=== PATIENT | male | born 1940 | race Caucasian/White ===

== ENCOUNTER 2020-06-15 08:30 | Outpatient (REF) | payer MEDICARE, SELFPAY ==
[2020-06-15 09:19] LABS: MANUAL DIFF FLAG NO
[2020-06-15 09:42] LABS: Basophils Absolute Auto 0.1 X10*3/uL (0.0-0.2); Basophils Percent Auto 0.8 % (0-2); Eosinophils Absolute Auto 0.1 X10*3/uL (0.0-0.4); Eosinophils Percent Auto 2.1 % (0-4); Hematocrit 42.8 % (42-52); Hemoglobin 13.3 g/dl (14.0-18.0); Imm Gran Abs Auto 0.01 X10*3/uL (0.00-0.03); Imm Gran Pct Auto 0.2 % (0.0-0.4); Lymphocytes Percent Auto 32.4 % (20-40); Mean Corpuscular HGB Conc 31.1 g/dl (31.0-36.0); Mean Corpuscular Hemoglobin 26.7 pg (27.0-33.0); Mean Corpuscular Volume 85.9 fL (80-98); Mean Platelet Volume 10.9 fL (9.4-12.4); Monocytes Absolute Auto 0.8 X10*3/uL (0.1-1.2); Monocytes Percent Auto 12.3 % (2-11); Neutrophils Absolute Auto 3.2 X10*3/uL (2.0-8.3); Neutrophils Percent Auto 52.2 % (45-73); Platelet Count 233 X10*3/uL (160-400); Red Blood Count 4.98 X10*6/uL (4.60-5.80); Red Cell Distribution Width 14.8 % (11.0-16.0); White Blood Count 6.2 X10*3/uL (4.8-10.8)
[2020-06-15 10:10] LABS: Alanine Aminotransferase 22 U/L (0-40); Albumin Level 4.3 g/dL (3.5-5.0); Alkaline Phosphatase 70 U/L (39-117); Anion Gap 12 (12-20); Aspartate Amino Transferase 28 U/L (5-37); Bilirubin Total 0.5 mg/dL (0.0-1.0); Blood Urea Nitrogen 21 mg/dL (9-16); Carbon Dioxide 34 mmol/L (22-29); Chloride 99 mmol/L (96-108); Cholesterol 172 mg/dL; Estimated Glomerular Filt Rate > 60; Glucose Random 94 mg/dL (60-115); HDL Cholesterol 44 mg/dL; LDL Cholesterol Calculated 108 mg/dl; Potassium 4.3 mmol/L (3.3-5.1); Sodium 141 mmol/L (135-145); Total Protein 6.9 g/dL (6.5-8.0); Triglycerides 100 mg/dL
[2020-06-15 10:18] LABS: Estimated Average Glucose 134 mg/dL; Hemoglobin A1c % 6.3 %
[2020-06-15 10:32] LABS: Free T4 (Free Thyroxine) 0.92 ng/dL (0.71-1.85); Thyroid Stimulating Hormone 2.67 uIU/mL (0.32-4.0)
[2020-06-15 10:52] LABS: Folate 14.3 ng/mL (> or = 4.0); Vitamin B12 546 pg/mL (200-900)
== END 2020-06-15 08:31 | disposition home or self-care (01) ==
LOC: HO.LAB 08:30
PROVIDERS: PCP Internal Medicine; Visit Provider Internal Medicine
DX: R73.02 Impaired glucose tolerance (oral) (principal); E78.00 Pure hypercholesterolemia, unspecified; E78.5 Hyperlipidemia, unspecified; I10 Essential (primary) hypertension
CPT/HCPCS: 36415; 80053; 80061; 82607; 82746; 83036; 84439; 84443; 85025

== ENCOUNTER 2021-02-07 13:21 | Outpatient (REF) | payer MEDICARE, SELFPAY ==
[2021-02-07 13:46] LABS: MANUAL DIFF FLAG NO
[2021-02-07 14:20] LABS: Basophils Absolute Auto 0.1 X10*3/uL (0.0-0.2); Eosinophils Absolute Auto 0.1 X10*3/uL (0.0-0.4); Eosinophils Percent Auto 2.3 % (0-4); Hematocrit 40.5 % (42-52); Hemoglobin 12.2 g/dl (14.0-18.0); Imm Gran Abs Auto 0.02 X10*3/uL (0.00-0.03); Imm Gran Pct Auto 0.3 % (0.0-0.4); Lymphocytes Absolute Auto 1.4 X10*3/uL (1.2-4.9); Lymphocytes Percent Auto 24.7 % (20-40); Mean Corpuscular HGB Conc 30.1 g/dl (31.0-36.0); Mean Corpuscular Hemoglobin 23.6 pg (27.0-33.0); Mean Corpuscular Volume 78.3 fL (80-98); Mean Platelet Volume 10.5 fL (9.4-12.4); Monocytes Absolute Auto 0.7 X10*3/uL (0.1-1.2); Monocytes Percent Auto 12.9 % (2-11); Neutrophils Absolute Auto 3.4 X10*3/uL (2.0-8.3); Neutrophils Percent Auto 58.8 % (45-73); Platelet Count 267 X10*3/uL (160-400); Red Blood Count 5.17 X10*6/uL (4.60-5.80); Red Cell Distribution Width 16.8 % (11.0-16.0); White Blood Count 5.8 X10*3/uL (4.8-10.8)
[2021-02-07 14:42] LABS: Estimated Average Glucose 131 mg/dL; Hemoglobin A1C 133.3661 umol/L; Hemoglobin A1c % 6.2 %
[2021-02-07 15:00] LABS: Alanine Aminotransferase 21 U/L (0-40); Albumin Level 4.5 g/dL (3.5-5.0); Alkaline Phosphatase 72 U/L (39-117); Anion Gap 13 (12-20); Aspartate Amino Transferase 22 U/L (5-37); Bilirubin Total 0.3 mg/dL (0.0-1.0); Blood Urea Nitrogen 22 mg/dL (9-16); Carbon Dioxide 33 mmol/L (22-29); Chloride 98 mmol/L (96-108); Cholesterol 275 mg/dL; Estimated Glomerular Filt Rate 54; Glucose Random 110 mg/dL (60-115); HDL Cholesterol 37 mg/dL; LDL Cholesterol Calculated 186 mg/dl; Potassium 4.1 mmol/L (3.3-5.1); Sodium 140 mmol/L (135-145); Total Protein 7.3 g/dL (6.5-8.0); Triglycerides 263 mg/dL
[2021-02-07 15:01] LABS: Free T4 (Free Thyroxine) 0.89 ng/dL (0.71-1.85)
== END 2021-02-07 13:22 | disposition home or self-care (01) ==
LOC: HO.LAB 13:21
PROVIDERS: PCP Internal Medicine; Visit Provider Internal Medicine
DX: E78.00 Pure hypercholesterolemia, unspecified (principal); R73.02 Impaired glucose tolerance (oral); E78.2 Mixed hyperlipidemia
CPT/HCPCS: 36415; 80053; 80061; 83036; 84439; 85025

== ENCOUNTER 2021-08-08 13:03 | Outpatient (REF) | payer MEDICARE, SELFPAY ==
--- NOTE | ~2021-08-08 | XR_ITS ---
EXAMINATION: XR CHEST CLINICAL INFORMATION: Shortness of breath COMPARISON: None TECHNIQUE: 2 views of the chest were obtained. FINDINGS: There is a large air-fluid level projecting over the heart suggestive of an esophageal hernia. The heart does not appear enlarged. Hilar and mediastinal contours are otherwise unremarkable. The lungs are clear. There is no pleural effusion or pneumothorax. There is a severe thoracolumbar scoliosis. XR/XR chest 2V IMPRESSION: Severe thoracolumbar scoliosis. Large esophageal hernia.
--- NOTE | 2021-08-08 13:09 | ECG_ITS ---
Test Reason : SOB R06.02 Blood Pressure : / mmHG Vent. Rate : 082 BPM Atrial Rate : 082 BPM P-R Int : 170 ms QRS Dur : 080 ms QT Int : 386 ms P-R-T Axes : 041 070 040 degrees QTc Int : 450 ms Normal sinus rhythm Nonspecific ST abnormality Abnormal ECG No previous ECGs available Referred By: Estella Gross Electronically Signed By:TANESHA MCDONALD MD
[2021-08-08 13:15] LABS: MANUAL DIFF FLAG NO
[2021-08-08 13:39] LABS: Basophils Absolute Auto 0.1 X10*3/uL (0.0-0.2); Basophils Percent Auto 0.8 % (0-2); Eosinophils Absolute Auto 0.1 X10*3/uL (0.0-0.4); Eosinophils Percent Auto 1.7 % (0-4); Hematocrit 36.8 % (42.0-52.0); Hemoglobin 10.3 g/dl (14.0-18.0); Imm Gran Abs Auto 0.02 X10*3/uL (0.00-0.03); Imm Gran Pct Auto 0.3 % (0.0-0.4); Lymphocytes Absolute Auto 1.6 X10*3/uL (1.2-4.9); Lymphocytes Percent Auto 24.5 % (20-40); Mean Corpuscular Hemoglobin 20.9 pg (27.0-33.0); Mean Corpuscular Volume 74.6 fL (80.0-98.0); Mean Platelet Volume 10.3 fL (9.4-12.4); Monocytes Absolute Auto 0.6 X10*3/uL (0.1-1.2); Monocytes Percent Auto 8.5 % (2-11); Neutrophils Absolute Auto 4.2 x10*3/uL (2.0-8.3); Neutrophils Percent Auto 64.2 % (45-73); Platelet Count 272 X10*3/uL (160-400); Red Blood Count 4.93 X10*6/uL (4.60-5.80); Red Cell Distribution Width 16.6 % (11.0-16.0); White Blood Count 6.5 X10*3/uL (4.8-10.8)
[2021-08-08 13:52] LABS: Estimated Average Glucose 137 mg/dL; Hemoglobin A1c % 6.4 %
[2021-08-08 14:11] LABS: B Type Natriuretic Peptide 119 pg/mL (<100)
[2021-08-08 14:13] LABS: Alanine Aminotransferase 22 U/L (0-40); Albumin Level 4.4 g/dL (3.5-5.0); Alkaline Phosphatase 61 U/L (39-117); Anion Gap 11 (12-20); Aspartate Amino Transferase 24 U/L (5-37); Bilirubin Total 0.6 mg/dL (0.0-1.0); Blood Urea Nitrogen 17 mg/dL (9-16); Calcium 9.8 mg/dL (8.4-10.2); Carbon Dioxide 31 mmol/L (22-29); Chloride 102 mmol/L (96-108); Cholesterol 140 mg/dL; Estimated Glomerular Filt Rate 57; Glucose Random 118 mg/dL (60-115); HDL Cholesterol 45 mg/dL; LDL Cholesterol Calculated 67 mg/dl; Potassium 4.3 mmol/L (3.3-5.1); Sodium 140 mmol/L (135-145); Total Protein 7.2 g/dL (6.5-8.0); Triglycerides 141 mg/dL
[2021-08-08 14:26] LABS: Free T4 (Free Thyroxine) 0.85 ng/dL (0.71-1.85)
[2021-08-08 14:39] LABS: Folate 15.7 ng/mL (> or = 4.0); Vitamin B12 526 pg/mL (200-900)
== END 2021-08-08 13:04 | disposition home or self-care (01) ==
LOC: HO.LAB 13:03
PROVIDERS: PCP Internal Medicine; Visit Provider Internal Medicine
DX: I10 Essential (primary) hypertension (principal); E78.2 Mixed hyperlipidemia; R73.02 Impaired glucose tolerance (oral); E78.00 Pure hypercholesterolemia, unspecified; R06.02 Shortness of breath
CPT/HCPCS: 36415; 71046; 80053; 80061; 82607; 82746; 83036; 83880; 84439; 84443; 85025; 93005

== ENCOUNTER 2021-08-09 14:03 | Outpatient (REF) | payer MEDICARE, SELFPAY ==
[2021-08-09 14:59] LABS: Basophils Absolute Auto 0.1 X10*3/uL (0.0-0.2); Basophils Percent Auto 0.9 % (0-2); Eosinophils Absolute Auto 0.1 X10*3/uL (0.0-0.4); Eosinophils Percent Auto 1.9 % (0-4); Hematocrit 36.9 % (42.0-52.0); Hemoglobin 10.4 g/dl (14.0-18.0); Imm Gran Abs Auto 0.03 X10*3/uL (0.00-0.03); Imm Gran Pct Auto 0.5 % (0.0-0.4); Immature Retic Fraction 22.8 % (2.3-13.4); Lymphocytes Absolute Auto 1.5 X10*3/uL (1.2-4.9); Lymphocytes Percent Auto 23.7 % (20-40); MANUAL DIFF FLAG SCAN; Mean Corpuscular HGB Conc 28.2 g/dl (31.0-36.0); Mean Corpuscular Hemoglobin 21.3 pg (27.0-33.0); Mean Corpuscular Volume 75.5 fL (80.0-98.0); Mean Platelet Volume 10.8 fL (9.4-12.4); Monocytes Absolute Auto 0.6 X10*3/uL (0.1-1.2); Monocytes Percent Auto 9.4 % (2-11); Neutrophils Percent Auto 63.6 % (45-73); Platelet Count 267 X10*3/uL (160-400); Red Blood Count 4.89 X10*6/uL (4.60-5.80); Red Cell Distribution Width 17.2 % (11.0-16.0); Retic HGB Equivalent 21.3 pg (30.0-35.0); Reticulocyte Percent 1.8 % (0.5-1.8); Reticulocytes Absolute 0.086 X10*6/uL (0.026-0.095); SCAN SMEAR FLAG 1; White Blood Count 6.4 X10*3/uL (4.8-10.8)
[2021-08-09 15:18] LABS: SLIDE REVIEW VERIFIED
[2021-08-09 15:27] LABS: Iron 227 mcg/dL (45-160); Percent Iron Saturation 51 % (15-50); Total Iron Binding Capacity 444 mcg/dL (228-428); Unsaturated Iron Binding 217 ug/dL
[2021-08-09 15:47] LABS: Ferritin 15 ng/mL (20-250)
== END 2021-08-09 14:04 | disposition home or self-care (01) ==
LOC: HO.LAB 14:03
PROVIDERS: PCP Internal Medicine; Visit Provider Internal Medicine
DX: R06.02 Shortness of breath (principal)
CPT/HCPCS: 36415; 82728; 83540; 85025; 85045

== ENCOUNTER → 2021-09-21 12:31 | Outpatient (REF) | payer MEDICARE, SELFPAY ==
--- NOTE | 2021-09-21 12:35 | CA_ITS ---
Transthoracic Echocardiogram Patient (Last, First, Middle): Wild Alberto J Gender: Male Date of : 1940 Age: 80 Procedure Date: 09/21/2021 Procedure Type: Transthoracic Echocardiogram Location: OP Height: 170.18 cm Weight: 81.65 kg BSA: 1.93 m2 Heart Rate: bpm BP: 164 / 80 mmHg Volunteer Recruitment Coordinator: SB Referring MD: Estella Gross MD Symptoms: R06.02 - Shortness of breath Study Quality: Fair ECG Rhythm: Sinus Conclusions: - The left ventricular systolic function is normal. The calculated ejection fraction is 59% by biplane method. - No obvious valvular pathology seen on this study. Findings Left Ventricle Normal left ventricular cavity size. There is normal left ventricular wall thickness. The left ventricular systolic function is normal. The calculated ejection fraction is 59% by biplane method. There is no evidence of regional wall motion abnormalities. E/E prime ratio is >15, consistent with elevated filling pressures. Evidence suggests grade I (mild) diastolic dysfunction. Right Ventricle Normal right ventricular cavity size and systolic function. Atria Both atria are normal in size. Aortic Valve There is a normal trileaflet aortic valve. There is no aortic valve stenosis. There is trace (trivial) aortic valve regurgitation. Mitral Valve The mitral valve appears normal. There is no mitral valve regurgitation. There is no mitral valve stenosis. Pulmonic Valve The pulmonic valve is likely normal. Tricuspid Valve Normal tricuspid valve structure. There is trace tricuspid valve regurgitation. The pulmonary artery systolic pressure is normal. Great Vessels The asc aorta is normal in size. Venous The inferior vena cava is normal in size and collapses greater than 50% with inspiration. Pericardium/Pleural There is no evidence of pericardial effusion. Prior Study Comparison No prior study available for comparison. Recommendations, Care & Conclusions No obvious valvular pathology seen on this study. Measurements 2D Linear Measurements IVSd: 0.67 0.6-0.9/0.6-1.0 cm LVIDd: 4.18 3.9-5.3/4.2-5.9 cm LVIDd Index: 2.17 2.4-3.2/2.2-3.1 cm/m2 LVIDs: 2.64 2.0-3.6 cm LVPWd: 0.92 0.7-1.1 cm LA Diam: 3.00 2.7-3.8/3.0-4.0 cm LAIDs Index: 1.55 1.5-2.3 cm/m2 LV Mass: 123.83 67-162/88-224 g LV Mass Index: 64.16 43-95/49-115 g/m2 LVOT Diam: 2.40 3.0+(-)1.3 cm 2D Systolic Function EF 4C: 58.10 >55% EF 2C: 60.00 >55% EF BiP: 58.70 >55% Mitral Valve MV Pk E: 1.00 MV PK A: 1.13 MV Decel Time: 204.00 E/A: 0.90 E'Lateral: 4.68 E'Medial: 7.51 E/E' Med: 13.30 E/E' Lat: 21.30 PHT: 60.00 MVA PHT: 3.67 Decel Sutter: 4.88 Aortic Valve AoV Pk Rodriguez: 1.11 AoV Mn Rodriguez: 0.87 AoV VTI: 0.28 AoV Pk Grad: 5.00 Aov Mn Grad: 3.00 PAT Cont.VTI: 3.65 AI Pk Rodriguez: 4.03 AI Sutter: 2.19 LVOT LVOT Pk Rodriguez: 1.06 LVOT Mn Rodriguez: 0.76 LVOT VTI: 0.23 LVOT Pk Grad: 4.00 LVOT Mn Grad: 2.00 LVOT Diam: 2.40 LVOT Area: 4.52 Diastolic Function MV Pk E: 1.00 MV Pk A: 1.13 E/A: 0.90 E'Medial: 7.51 E/E' Med: 13.30 E' Laterial: 4.68 E/E' Lat: 21.30 Right Ventricle TAPSE (mm): 24.40 TVS' Rodriguez: 13.80 Tricuspid Valve RA Press: 3.00 Great Vessels Aorta Sinus of Valsalva: 3.64 2.0-3.[address] Ridge: 3.10 1.7-3.4 cm Ao Asc: 3.80 2.1-3.4 cm Pulmonary Veins Pulm Vein S/D 1.20 Pulmonary Valve PV Pk Rodriguez: 0.94 Peak PV Grad: 4.00 Updated in Other Vendor System with Status of Final Gianni Marc MD electronically signed on 09/23/2021 11:07:45 AM with status of Final
== END ==
LOC: HO.CARD 12:31
PROVIDERS: PCP Internal Medicine; Visit Provider Internal Medicine
DX: R06.02 Shortness of breath (principal)
CPT/HCPCS: 93306

== ENCOUNTER → 2021-10-06 14:25 | Outpatient (BNVA) | payer MEDICARE, SELFPAY | PROVIDERS: PCP Internal Medicine; Referring Provider Internal Medicine; Visit Provider Internal Medicine | DX: R06.02 Shortness of breath (principal); I51.89 Other ill-defined heart diseases; I10 Essential (primary) hypertension; M41.9 Scoliosis, unspecified | CPT/HCPCS: 99202 ==

== ENCOUNTER 2021-10-11 20:02 | Inpatient (IN) | payer MEDICARE, SELFPAY ==
[2021-10-11 20:17] VITALS: BP 136/72; BP 150/96; PULSE 90; PULSE 91; RESP 18; TEMP 37.1; O2SAT 95; O2SAT 96; BMI 29.0
--- NOTE | 2021-10-11 20:25 | ECG_ITS ---
Test Reason : URYTHMIA Blood Pressure : / mmHG Vent. Rate : 088 BPM Atrial Rate : 088 BPM P-R Int : 186 ms QRS Dur : 080 ms QT Int : 380 ms P-R-T Axes : 037 066 034 degrees QTc Int : 459 ms Normal sinus rhythm Normal ECG When compared with ECG of 08-AUG-2021 13:22, No significant change was found Referred By: Generic ED Physician Electronically Signed By:WILLOW HOUSE
--- NOTE | 2021-10-11 20:31 | ED.ARRPALP ---
HPI - Arrhythmia/Palpitations General Chief Complaint: Arrhythmia/Palpitations Stated Complaint: PALPATIONS Time Seen by Provider: 10/11/21 20:30 Source: patient Mode of arrival: ambulatory Limitations: no limitations History of Present Illness HPI narrative: Patient history of hypertension , diastolic heart failure, CKD, anxiety, GERD used to be on atenolol 100 mg daily was stopped 5 days ago and started on amlodipine 5 mg since then patient is not feeling good having off and on episodes of palpitation today palpitations started at 18:00 lasted for an hour with lightheadedness and weakness patient denies any chest pain no leg swelling or shortness of breath no syncope episode Related Data Previous Rx's Medication Instructions Recorded rosuvastatin 20 mg tablet (Crestor) 20 mg PO DAILY #30 tab 03/17/21 venlafaxine 75 mg capsule,extended 75 mg PO DAILY #90 cap 08/29/21 release 24 hr Belbuca 600 mcg buccal film 600 mcg BUCCAL Q12H #60 ea NS 09/13/21 (buprenorphine HCl) amlodipine 5 mg tablet 5 mg PO DAILY #90 tab 10/06/21 ascorbate calcium (vitamin C) 500 500 mg PO DAILY #90 tab 10/10/21 mg tablet ferrous sulfate 325 mg (65 mg 325 mg PO DAILY 90 Days #90 tab 10/10/21 iron) tablet (FeroSul) omeprazole 40 mg capsule,delayed 40 mg PO DAILY #90 cap 10/10/21 release sildenafil 100 mg tablet 100 mg PO DAILY PRN #14 tab 10/10/21 Allergies Allergy/AdvReac Type Severity Reaction Status Date / Time No Known Allergies Allergy Verified 10/10/21 15:35 Review of Systems Review of Systems: Yes all other systems are reviewed and are negative [facility] Past Medical History Attestation statement: The following information was validated with the patient. Medical History (Updated 10/12/21 @ 00:32 by Kobe Sutherland MD) CKD (chronic kidney disease) stage 3, GFR 30-59 ml/min GERD (gastroesophageal reflux disease) Hyperlipidemia Hypertension Impaired glucose tolerance Lumbar spondylosis Overweight (BMI 25.0-29.9) Scoliosis Surgical History History of appendectomy History of arthroscopy of left knee History of removal of nevus Family History Family History Father No problems noted. Mother No problems noted. Brother Prostate cancer Son Colon cancer History of cancer chemotherapy Social History Social History Housing: Apartment Alcohol intake: never Patient Tobacco Use Status: Former Tobacco user Tobacco use type: Cigarette e-Cigarette/Vaping Use: Never Used Second Hand Smoke Exposure: No Advance Directives: Yes Advance Directives Information Provided: No Advance Directives on File: No service: No Current occupational status: retired Cognitive needs: No Hearing needs: No Vision needs: Yes Physical Exam Vital Signs: Vital Signs: Last Vital Signs Temp 98.7 F 10/11/21 20:39 Pulse 70 10/11/21 23:43 Resp 17 10/11/21 23:43 BP 136/86 10/11/21 23:43 Pulse Ox 95 10/11/21 23:43 BMI result Body Mass Index 29.0 Appearance: Alert. Oriented X3. No acute distress. Eyes: PERRLA, No Nystagmus ENT: Pharynx normal. Oral Mucosa moist Neck: Normal inspection. Neck supple. CVS: Normal heart rate and rhythm. Pulses normal. Respiratory: No respiratory distress. Equal air entry bilateral, no wheezing/rales/rhonchi Abdomen: Soft and nontender. Bowel sounds are present, no mass palpable, no CVA tenderness Skin: Skin warm and dry. Normal skin color. Normal skin turgor. Extremities: No lower extremity edema. No calf tenderness Neuro: Oriented X 3. No motor deficit. No sensory deficit.No cerebellar signs , cranial nerves II-XII intact MDM - Arrhythmia/Palpitations MDM Narrative Medical decision making narrative: Patient with episode of palpitation with chest heaviness lasted for an hour patient took 4 baby aspirin at home on arrival EKG without any ischemic changes initial troponin was 22 during stay in the ER no arrhythmias noticed patient denies any chest discomfort repeat troponin was 107 from repeat EKG without any ischemic changes patient vitals stable case discussed Dr. Marc system controller advised to admit for further evaluation will start him on heparin and nitro paste was applied Medical Records Attestation: I reviewed the patient's medical records. Lab Data Attestation: I reviewed the patient's lab results. Result diagrams: 10/11/21 20:52 06/07/22 20:52 Labs: Lab Results 10/11/21 10/11/21 10/11/21 Range/Units 20:52 20:52 20:52 WBC 7.0 (4.8-10.8) X10*3/uL RBC 5.29 (4.60-5.80) X10*6/uL Hgb 14.0 D (14.0-18.0) g/dl Hct 44.4 D (42.0-52.0) % MCV 83.9 (80.0-98.0) fL MCH 26.5 L (27.0-33.0) pg MCHC 31.5 (31.0-36.0) g/dl RDW 22.5 H (11.0-16.0) % Plt Count 187 D (160-400) X10*3/uL MPV 10.2 (9.4-12.4) fL Immature Gran % (Auto) 0.3 (0.0-0.4) % Neut % (Auto) 74.0 H (45-73) % Lymph % (Auto) 15.2 L (20-40) % [place] % (Auto) 9.2 (2-11) % Eos % (Auto) 0.9 (0-4) % Baso % (Auto) 0.4 (0-2) % Lymph # (Auto) 1.1 L (1.2-4.9) X10*3/uL [place] # (Auto) 0.6 (0.1-1.2) X10*3/uL Eos # (Auto) 0.1 (0.0-0.4) X10*3/uL Baso # (Auto) 0.0 (0.0-0.2) X10*3/uL Abs Immat Gran (auto) 0.02 (0.00-0.03) X10*3/uL Absolute Neuts (auto) 5.2 (2.0-8.3) x10*3/uL Absolute Nucleated RBC 0.000 (0.0-0.012) X10*3/uL Nucleated RBC % (auto) 0.0 (0.0-0.2) /100WBC Sodium 142 (135-145) mmol/L Potassium 3.7 (3.3-5.1) mmol/L Chloride 102 (96-108) mmol/L Carbon Dioxide 30 H (22-29) mmol/L Anion Gap 14 (12-20) BUN 22 H (9-16) mg/dL Creatinine 1.28 (0.5-1.4) mg/dL Estim Creat Clear Calc 47.6 Estimated GFR 54 Random Glucose 110 (60-115) mg/dL Calcium 9.2 D (8.4-10.2) mg/dL Troponin I High Sens (<3.5-35.0) ng/L TSH (0.32-4.0) uIU/mL COVID-19 (JONAS) Negative (Negative) COVID-19 Clin Com See Note 10/11/21 10/11/21 10/11/21 Range/Units 20:52 20:52 22:55 WBC (4.8-10.8) X10*3/uL RBC (4.60-5.80) X10*6/uL Hgb (14.0-18.0) g/dl Hct (42.0-52.0) % MCV (80.0-98.0) fL MCH (27.0-33.0) pg MCHC (31.0-36.0) g/dl RDW (11.0-16.0) % Plt Count (160-400) X10*3/uL MPV (9.4-12.4) fL Immature Gran % (Auto) (0.0-0.4) % Neut % (Auto) (45-73) % Lymph % (Auto) (20-40) % [place] % (Auto) (2-11) % Eos % (Auto) (0-4) % Baso % (Auto) (0-2) % Lymph # (Auto) (1.2-4.9) X10*3/uL [place] # (Auto) (0.1-1.2) X10*3/uL Eos # (Auto) (0.0-0.4) X10*3/uL Baso # (Auto) (0.0-0.2) X10*3/uL Abs Immat Gran (auto) (0.00-0.03) X10*3/uL Absolute Neuts (auto) (2.0-8.3) x10*3/uL Absolute Nucleated RBC (0.0-0.012) X10*3/uL Nucleated RBC % (auto) (0.0-0.2) /100WBC Sodium (135-145) mmol/L Potassium (3.3-5.1) mmol/L Chloride (96-108) mmol/L Carbon Dioxide (22-29) mmol/L Anion Gap (12-20) BUN (9-16) mg/dL Creatinine (0.5-1.4) mg/dL Estim Creat Clear Calc Estimated GFR Random Glucose (60-115) mg/dL Calcium (8.4-10.2) mg/dL Troponin I High Sens 22.0 107.0 H* D (<3.5-35.0) ng/L TSH 0.99 (0.32-4.0) uIU/mL COVID-19 (JONAS) (Negative) COVID-19 Clin Com ECG Data Attestation: I personally reviewed and interpreted this ECG as follows: Critical Care Time Critical Care Time Critical Care Time: Yes Total Critical Care Time: 50 Attestation: I spent 50 minutes of critical care, with interventions, assessments, speaking to patient, consultants, and family. Discharge Plan Discharge Clinical Impression: Palpitations, Non-ST elevation MA (NSTEMI) Patient Disposition: Admitted As Inpatient
[2021-10-11 20:39] VITALS: BP 150/96; PULSE 90; RESP 18; TEMP 37.1; O2SAT 95
[2021-10-11 21:00] LABS: MANUAL DIFF FLAG NO
[2021-10-11 21:02] LABS: Basophils Percent Auto 0.4 % (0-2); Eosinophils Absolute Auto 0.1 X10*3/uL (0.0-0.4); Eosinophils Percent Auto 0.9 % (0-4); Hematocrit 44.4 % (42.0-52.0); Imm Gran Abs Auto 0.02 X10*3/uL (0.00-0.03); Imm Gran Pct Auto 0.3 % (0.0-0.4); Lymphocytes Absolute Auto 1.1 X10*3/uL (1.2-4.9); Lymphocytes Percent Auto 15.2 % (20-40); Mean Corpuscular HGB Conc 31.5 g/dl (31.0-36.0); Mean Corpuscular Hemoglobin 26.5 pg (27.0-33.0); Mean Corpuscular Volume 83.9 fL (80.0-98.0); Mean Platelet Volume 10.2 fL (9.4-12.4); Monocytes Absolute Auto 0.6 X10*3/uL (0.1-1.2); Monocytes Percent Auto 9.2 % (2-11); Neutrophils Absolute Auto 5.2 x10*3/uL (2.0-8.3); Platelet Count 187 X10*3/uL (160-400); Red Blood Count 5.29 X10*6/uL (4.60-5.80); Red Cell Distribution Width 22.5 % (11.0-16.0)
--- NOTE | 2021-10-11 21:08 | PC.NURSE ---
Patient alert and oriented x 3. ambulates with cane. Patient denies any palpitations now. tele: sinus rythym Patient states they took him off atenolol for a test and put him on amlodipine for blood pressure control. Took atenolol before leaving his house and 4 baby aspirins. Will continue with plan of care.
[2021-10-11 21:15] LABS: Anion Gap 14 (12-20); Blood Urea Nitrogen 22 mg/dL (9-16); Calcium 9.2 mg/dL (8.4-10.2); Carbon Dioxide 30 mmol/L (22-29); Chloride 102 mmol/L (96-108); Creatinine Clr Calc Pharmacy 47.6; Estimated Glomerular Filt Rate 54; Glucose Random 110 mg/dL (60-115); Potassium 3.7 mmol/L (3.3-5.1); Sodium 142 mmol/L (135-145)
[2021-10-11 21:18] LABS: COVID-19 Test Negative (Negative); IDNOW Serial# 9DB6401D
[2021-10-11 21:36] LABS: Thyroid Stimulating Hormone 0.99 uIU/mL (0.32-4.0)
[2021-10-11 23:43] VITALS: BP 136/86; PULSE 70; RESP 17; O2SAT 95
[2021-10-11] MEDS: Nitroglycerin 2 % Oint 1 GM Packet 0.5 INCH TRANSDERMA (23:47)
[2021-10-12] MEDS: 0.9 % Sodium Chloride Flush 3 ML SYRINGE IVFLUSH ×2 (00:03→20:03)
[2021-10-12] MEDS: Heparin Sodium,Porcine 5,000 UNIT/ML VIAL 5000 UNIT IVPUSH (00:33)
[2021-10-12 00:38] LABS: Prothrombin Time 11.4 SEC (9.9-13.0)
[2021-10-12 00:41] LABS: PTT Heparin Drip 29.8 SEC (53-77.9)
[2021-10-12] MEDS: Heparin Sodium,Porcine/1/2NS 25,000 UNIT/250 ML IV.SOLN 10 UNIT IVCONT (00:44)
[2021-10-12 00:49] LABS: Hematocrit 42.3 % (42.0-52.0); Hemoglobin 13.2 g/dl (14.0-18.0); Mean Corpuscular HGB Conc 31.2 g/dl (31.0-36.0); Mean Corpuscular Hemoglobin 26.1 pg (27.0-33.0); Mean Corpuscular Volume 83.8 fL (80.0-98.0); Mean Platelet Volume 10.2 fL (9.4-12.4); Platelet Count 180 X10*3/uL (160-400); Red Blood Count 5.05 X10*6/uL (4.60-5.80); Red Cell Distribution Width 22.5 % (11.0-16.0)
--- NOTE | 2021-10-12 01:37 | PC.NURSE ---
Patients troponin elevated MD notified and started on heparin drip and being admitted to hospital. Will continue with plan of care.
[2021-10-12 03:02] VITALS: BP 124/77; PULSE 66; RESP 15; TEMP 36.5; O2SAT 96
--- NOTE | 2021-10-12 03:36 | P.HPHOSP_ITS ---
History of Present Illness Date of Service: 10/12/21 Chief Complaint: Palpitations 80-year-old male with a past medical history of hypertension, hyperlipidemia, CKD, GERD, chronic back pain, glucose intolerance, scoliosis, anxiety, diastolic CHF presented to the hospital today with a chief complaint of palpitations/chest heaviness. Patient reported that lately his blood pressure has been poorly controlled; has been following with cardiology who recently stopped his atenolol/hydrochlorothiazide and start him on amlodipine. Today he noted to have palpitations with heart rate in 200s; associated the chest heaviness and mild shortness of breath. Currently improved at the time of my interview. With heart rate in 70s and no chest pain. Patient reports that he had similar episode about couple days ago which lasted for few seconds and subsequently resolved. Denies any headaches numbness tingling or focal weakness. Denies any fever chills cough. Denies any GI symptoms. Patient when he had chest pain no associated symptoms reported. Review of all other systems is negative except mentioned above ER course: Per ER team patient's EKG was nonischemic initial troponin was 22 and follow-up troponin went up to 100.7; patient was started on heparin drip for possible NSTEMI. Cardiology was notified. Chest x-ray showed no acute findings. Admitted to the hospital for further management. [facility] Medical History (Updated 10/12/21 @ 00:32 by Kobe Sutherland MD) CKD (chronic kidney disease) stage 3, GFR 30-59 ml/min GERD (gastroesophageal reflux disease) Hyperlipidemia Hypertension Impaired glucose tolerance Lumbar spondylosis Overweight (BMI 25.0-29.9) Scoliosis Family History Father No problems noted. Mother No problems noted. Brother Prostate cancer Son Colon cancer History of cancer chemotherapy Surgical History History of appendectomy History of arthroscopy of left knee History of removal of nevus Social History Housing: Apartment Alcohol intake: never Patient Tobacco Use Status: Former Tobacco user Tobacco use type: Cigarette e-Cigarette/Vaping Use: Never Used Second Hand Smoke Exposure: No Advance Directives: Yes Advance Directives Information Provided: No Advance Directives on File: No service: No Current occupational status: retired Cognitive needs: No Hearing needs: No Vision needs: Yes Meds Allergies Allergy/AdvReac Type Severity Reaction Status Date / Time No Known Allergies Allergy Verified 10/10/21 15:35 Active Medications: Current Medications Heparin Sodium (Porcine) (Heparin Sodium,Porcine 5,000 Unit/Ml Vial) 3,400 unit 40 unit/kg (3400 unit) IVPUSH PROTOCOL BOLUS PRN; Protocol PRN Reason: 40 unit/kg - Heparin Protocol Heparin Sodium (Porcine) (Heparin Sodium,Porcine 5,000 Unit/Ml Vial) 6,700 unit 80 unit/kg (6700 unit) IVPUSH PROTOCOL BOLUS PRN; Protocol PRN Reason: 80 unit/kg - Heparin Protocol Heparin Sodium/Sodium Chloride () 25,000 unit in 250 mls @ 0 mls/hr IVCONT .Q0M [facility]; Protocol Last Admin: 10/12/21 00:44 Dose: 11.92 units/kg/hr, 10 mls/hr Documented by: Sodium Chloride (0.9 % Sodium Chloride Flush 3 Ml Syringe) [facility] Last Admin: 10/12/21 03:04 Dose: Not Given Documented by: Home Medications Medication Instructions Recorded Confirmed Last Taken Type amlodipine 5 mg tablet (Norvasc) 5 mg PO DAILY 10/12/21 Unknown History atenolol 100 mg-chlorthalidone 25 1 tab PO DAILY 10/12/21 10/12/21 Unknown History mg tablet venlafaxine 75 mg capsule,extended 1 cap PO DAILY 10/12/21 10/12/21 Unknown History release 24 hr Physical Exam Vital Signs and Narrative: Vital Signs: Last Vital Signs Temp 97.7 F 10/12/21 03:02 Pulse 66 10/12/21 03:02 Resp 15 10/12/21 03:02 BP 124/77 10/12/21 03:02 Pulse Ox 96 10/12/21 03:02 BMI result Body Mass Index 29.0 Gen: Appears be in no acute distress HEENT: NCAT, Moist mucosa. Pulmonary: Vesicular breath sounds, fair air entry CVS: Normal S1-S2 Abdomen: BS+, Soft, Nontender Extremities: Warm well perfused Neuro: Alert and awake. Results Labs CBC and Chem 7: 10/12/21 00:44 10/11/21 20:52 Labs: Laboratory Results - last 24 hr 10/11/21 10/11/21 10/11/21 20:52 20:52 20:52 MCV 83.9 MCH 26.5 L MCHC 31.5 RDW 22.5 H Plt Count 187 D MPV 10.2 Immature Gran % (Auto) 0.3 Neut % (Auto) 74.0 H Lymph % (Auto) 15.2 L [place] % (Auto) 9.2 Eos % (Auto) 0.9 Baso % (Auto) 0.4 Lymph # (Auto) 1.1 L [place] # (Auto) 0.6 Eos # (Auto) 0.1 Baso # (Auto) 0.0 Abs Immat Gran (auto) 0.02 Absolute Neuts (auto) 5.2 Absolute Nucleated RBC 0.000 Nucleated RBC % (auto) 0.0 PT INR aPTT Heparin Protocol Anion Gap 14 Estim Creat Clear Calc 47.6 Estimated GFR 54 Random Glucose 110 Calcium 9.2 D Troponin I High Sens TSH COVID-19 (JONAS) Negative COVID-19 Clin Com See Note 10/11/21 10/11/21 10/11/21 20:52 20:52 22:55 MCV MCH MCHC RDW Plt Count MPV Immature Gran % (Auto) Neut % (Auto) Lymph % (Auto) [place] % (Auto) Eos % (Auto) Baso % (Auto) Lymph # (Auto) [place] # (Auto) Eos # (Auto) Baso # (Auto) Abs Immat Gran (auto) Absolute Neuts (auto) Absolute Nucleated RBC Nucleated RBC % (auto) PT INR aPTT Heparin Protocol Anion Gap Estim Creat Clear Calc Estimated GFR Random Glucose Calcium Troponin I High Sens 22.0 107.0 H* D TSH 0.99 COVID-19 (JONAS) COVID-19 Clin Com 10/12/21 10/12/21 00:27 00:44 MCV 83.8 MCH 26.1 L MCHC 31.2 RDW 22.5 H Plt Count 180 MPV 10.2 Immature Gran % (Auto) Neut % (Auto) Lymph % (Auto) [place] % (Auto) Eos % (Auto) Baso % (Auto) Lymph # (Auto) [place] # (Auto) Eos # (Auto) Baso # (Auto) Abs Immat Gran (auto) Absolute Neuts (auto) Absolute Nucleated RBC 0.000 Nucleated RBC % (auto) 0.0 PT 11.4 INR 1.0 aPTT Heparin Protocol 29.8 L Anion Gap Estim Creat Clear Calc Estimated GFR Random Glucose Calcium Troponin I High Sens TSH COVID-19 (JONAS) COVID-19 Clin Com Assessment and Plan (1) Non-ST elevation HI (NSTEMI): Status: Acute Plan 80-year-old male with a past medical history of hypertension, hyperlipidemia, CKD, GERD, chronic back pain, glucose intolerance, scoliosis, anxiety, diastolic CHF presented to the hospital today with a chief complaint of palpitations/chest heaviness. Noted to have elevated troponins, concern for NSTEMI. Admitted for further management. NSTEMI: Patient's chest pain and palpitations currently resolved. Patient on heparin drip Telemetry Troponins: 22->100.7 Patient already took his aspirin at home. Sublingual nitroglycerin p.r.n. Echocardiogram Will give the patient on aspirin 81 mg, statin, beta-sen. Will obtain lipid panel and hemoglobin A1c Radiology consult D-dimer pending History of hypertension: Blood pressure currently on the normal side. Will give the patient on metoprolol 25 mg b.i.d. hold home amlodipine for now DVT prophylaxis: Patient on heparin drip Code status: Full code Quality Stroke Does the patient have a stroke diagnosis?: No VTE Prior VTE?: No VTE Risk Level:: Medical - moderate - high VTE Device Contraindication: Treatment Not Indicated VTE Drug Contraindication: N/A - Med Ordered
[2021-10-12 03:51] LABS: D Dimer High Sensitivity < 150 NG/ML
[2021-10-12 06:33] LABS: MANUAL DIFF FLAG NO
[2021-10-12 06:48] LABS: Basophils Percent Auto 0.5 % (0-2); Eosinophils Absolute Auto 0.1 X10*3/uL (0.0-0.4); Hematocrit 43.5 % (42.0-52.0); Hemoglobin 13.4 g/dl (14.0-18.0); Imm Gran Abs Auto 0.01 X10*3/uL (0.00-0.03); Imm Gran Pct Auto 0.1 % (0.0-0.4); Lymphocytes Percent Auto 23.1 % (20-40); Mean Corpuscular HGB Conc 30.8 g/dl (31.0-36.0); Mean Corpuscular Hemoglobin 26.1 pg (27.0-33.0); Mean Corpuscular Volume 84.6 fL (80.0-98.0); Mean Platelet Volume 10.9 fL (9.4-12.4); Monocytes Absolute Auto 0.8 X10*3/uL (0.1-1.2); Monocytes Percent Auto 9.2 % (2-11); Neutrophils Absolute Auto 5.8 x10*3/uL (2.0-8.3); Neutrophils Percent Auto 66.1 % (45-73); Platelet Count 173 X10*3/uL (160-400); Red Blood Count 5.14 X10*6/uL (4.60-5.80); Red Cell Distribution Width 22.7 % (11.0-16.0); White Blood Count 8.8 X10*3/uL (4.8-10.8)
[2021-10-12 07:14] LABS: Anion Gap 15 (12-20); Blood Urea Nitrogen 22 mg/dL (9-16); Calcium 9.2 mg/dL (8.4-10.2); Carbon Dioxide 27 mmol/L (22-29); Chloride 102 mmol/L (96-108); Creatinine Clr Calc Pharmacy 59.8; Estimated Glomerular Filt Rate > 60; Glucose Random 104 mg/dL (60-115); Potassium 4.3 mmol/L (3.3-5.1); Sodium 140 mmol/L (135-145)
[2021-10-12 07:22] LABS: PTT Heparin Drip > 200.0 SEC (53-77.9)
--- NOTE | 2021-10-12 07:33 | PC.NURSE ---
Pt is A&Ox4, BISHOP PAIUTE, LCA at this time, no complaints of pain, NSR in the 60's on the monitor. Heparin drip stopped as per protocol for PTT >200. Plan for redraw of labs at 0825. Call au within reach. Will continue to monitor.
--- NOTE | 2021-10-12 07:51 | PHA.MEDREC ---
Pharmacy Consult ? Medication Reconciliation Pharmacy has completed the medication reconciliation. Patient reports taking Crestor although there is no filled history. Patient reports that his will be able to bring his Belbuca films in. Tabatha Jarrell, MichaelD
[2021-10-12] MEDS: Aspirin 81 MG TAB.CHEW PO (07:55)
[2021-10-12] MEDS: Venlafaxine HCl ER 75 MG CAP.ER.24H PO (07:56)
[2021-10-12] MEDS: Omeprazole 40 MG CAPSULE.DR PO (07:56)
--- NOTE | 2021-10-12 08:14 | PC.NURSE ---
sr on monitor, no complaints, alert, speech clear, skin wpd, nad, moved to overflow 2, heparin drip on hold
[2021-10-12 09:06] LABS: PTT Heparin Drip 51.6 SEC (53-77.9)
[2021-10-12 09:14] LABS: Cholesterol 138 mg/dL; Estimated Average Glucose 123 mg/dL; HDL Cholesterol 43 mg/dL; Hemoglobin A1c % 5.9 %; LDL Cholesterol Calculated 56 mg/dl; Triglycerides 199 mg/dL
--- NOTE | 2021-10-12 09:50 | MHC.CM.PN ---
Met with patient in regards to discharge planning. Patient is very hard of hearing. Patient lives with his , ambulates with a cane and had no services prior to coming to the ER. Patient does not feel any services will be needed at d/c. PCP verified. Copy of HCP verified to be on file. Patient received 3 Moderna vaccines. IMM explained and signed. Patient's will transport him home when medically stable. Continue to monitor for d/c needs.
--- NOTE | 2021-10-12 10:55 | P.CONCA_ITS ---
History of Present Illness History of Present Illness Date of Service: 10/12/21 Chief complaint: NSTEMI Narrative: This is a cardiology consultation regarding elevated troponins. Patient was recently seen in the office. He was evaluated for shortness of breath. Based on that encounter, he has had scoliosis for many years since he was a child and has had some shortness of breath for decades. However recently more short of breath than usual. His blood pressure was running high. We had added amlodipine. He was also on atenolol prior to that but it seems he might have stopped taking it. Yesterday, he called me through the answering service stating that his heart rate was almost 200/Min. He did not really have any chest discomfort or anything on those lines but just nonspecific discomfort and not feeling good all over the body. Then I asked him to go to the ER. He did present to the emergency room and noted to have rather normal heart rate and normal sinus rhythm. Hence not clear if he had a bout of atrial fibrillation or some other arrhythmia. Then he had troponins checked and they were elevated. Then he was admitted as NSTEMI. Today he states he is feeling good. No new concerns. During the recent outpatient visit, he actually had a stress test ordered but not yet completed. Review of Systems Review of Systems: Yes all other systems are reviewed and are negative Constitutional: Constitutional: Reports as per HPI Eyes: Eyes: Reports as per HPI ENT: Reports as per HPI Cardiovascular: Cardiovascular: Reports as per HPI, Denies acrocyanosis, Denies cool extremities, Denies chest pain, Denies leg edema, Denies lightheadedness, Reports palpitations and Denies dyspnea Respiratory: Respiratory: Reports as per HPI, Reports no additional respiratory complaints and Denies dyspnea Gastrointestinal: Gastrointestinal: Reports as per HPI and Reports no additional gastrointestinal complaints Genitourinary: Genitourinary: Reports no additional male genitourinary complaints and Reports as per HPI Musculoskeletal: Musculoskeletal: Reports no additional musculoskeletal co mplaints and Reports as per HPI Integumentary/Breasts: Skin/Breast: Reports system reviewed and no additional complaints, except as docu Neurologic: Reports system reviewed and no additional complaints, except as documented and Reports as per HPI Psychiatric: Psychiatric: Reports no additional psychiatric complaints and Reports as per HPI Endocrine: Endocrine: Reports no additional endocrine complaints, Reports as per HPI and Reports palpitations Hematologic/Lymphatic: Hematologic/Lymphatic: Reports no additional hematologic/lymphatic complaints and Reports as per HPI Allergic/Immunologic: Allergic/Immunologic: Reports no additional allergic/immunologic complaints and Reports as per HPI [facility] Past Medical History Medical History (Updated 10/12/21 @ 00:32 by Kobe Sutherland MD) CKD (chronic kidney disease) stage 3, GFR 30-59 ml/min GERD (gastroesophageal reflux disease) Hyperlipidemia Hypertension Impaired glucose tolerance Lumbar spondylosis Overweight (BMI 25.0-29.9) Scoliosis Family History Family History Father No problems noted. Mother No problems noted. Brother Prostate cancer Son Colon cancer History of cancer chemotherapy Surgical History Surgical History History of appendectomy History of arthroscopy of left knee History of removal of nevus Social History Social History Housing: Apartment Alcohol intake: never Patient Tobacco Use Status: Former Tobacco user Tobacco use type: Cigarette e-Cigarette/Vaping Use: Never Used Second Hand Smoke Exposure: No Advance Directives: Yes Advance Directives Information Provided: No Advance Directives on File: No service: No Current occupational status: retired Cognitive needs: No Hearing needs: No Vision needs: Yes Meds Allergies Allergy/AdvReac Type Severity Reaction Status Date / Time No Known Allergies Allergy Verified 10/10/21 15:35 Active Medications: Current Medications Aspirin (Aspirin 81 Mg Tab.Chew) 81 mg PO DAILY [facility] Last Admin: 10/12/21 07:55 Dose: 81 mg Atorvastatin Calcium (Atorvastatin Calcium 40 Mg Tablet) 40 mg PO BEDTIME [facility] Heparin Sodium (Porcine) (Heparin Sodium,Porcine 5,000 Unit/Ml Vial) 3,400 unit 40 unit/kg (3400 unit) IVPUSH PROTOCOL BOLUS PRN; Protocol PRN Reason: 40 unit/kg - Heparin Protocol Heparin Sodium (Porcine) (Heparin Sodium,Porcine 5,000 Unit/Ml Vial) 6,700 unit 80 unit/kg (6700 unit) IVPUSH PROTOCOL BOLUS PRN; Protocol PRN Reason: 80 unit/kg - Heparin Protocol Heparin Sodium/Sodium Chloride () 25,000 unit in 250 mls @ 0 mls/hr IVCONT .Q0M [facility]; Protocol Last Titration: 10/12/21 09:45 Dose: 7.92 units/kg/hr, 6.65 mls/hr Metoprolol Tartrate (Metoprolol Tartrate 25 Mg Tablet) 25 mg PO BID [facility]; Protocol Last Admin: 10/12/21 08:00 Dose: Not Given Non-Formulary Medication (Buprenorphine Hcl [Belbuca]) 600 mcg BUCCAL Q12H [facility] Omeprazole (Omeprazole 40 Mg Capsule.Dr) 40 mg PO DAILY@0630 [facility] Last Admin: 10/12/21 07:56 Dose: 40 mg Sodium Chloride (0.9 % Sodium Chloride Flush 3 Ml Syringe) 3 ml IVFLUSH QSHIFT [facility] Last Admin: 10/12/21 03:04 Dose: Not Given Venlafaxine HCl (Venlafaxine Hcl Er 75 Mg Cap.Er.24h) 75 mg PO DAILY [facility] Last Admin: 10/12/21 07:56 Dose: 75 mg Home Medications Medication Instructions Recorded Confirmed Last Taken Type atenolol 100 mg-chlorthalidone 25 1 tab PO DAILY 10/12/21 10/12/21 10/10/21 History mg tablet venlafaxine 75 mg capsule,extended 1 cap PO DAILY 10/12/21 10/12/21 10/10/21 History release 24 hr Physical Exam Vital Signs: Vital Signs: Last Vital Signs Temp 97.7 F 10/12/21 03:02 Pulse 66 10/12/21 03:02 Resp 15 10/12/21 03:02 BP 124/77 10/12/21 03:02 Pulse Ox 96 10/12/21 03:02 O2 Del Method 10/12/21 03:02 BMI result Body Mass Index 29.0 Const: General: comfortable and no acute distress Orientation/consciousness: patient oriented x3 HEENT: Other: Unremarkable Head: Yes normal to inspection Neck: Neck: Yes normal visual inspection Chest: Chest palpation & inspection: normal inspection of the chest Resp: Auscultation: clear to auscultation bilaterally Cardio: Palpation: normal PMI Heart sounds: S1 normal heart sound present, S2 normal heart sound present, no gallops, no murmurs and no rubs GI: Palpation (GI): Soft to palpation Back/Spine/Pelvis: Other: unremarkable Skin: General skin exam: no rashes or lesions noted Neuro: General: patient oriented x3 Extrem: General: Yes normal to inspection Psych: Mental Status: mental status grossly normal Objective Labs and Meds Result diagrams: 10/12/21 04:50 10/12/21 04:50 Lab results: Laboratory Results - last 24 hr 10/11/21 10/11/21 10/11/21 20:52 20:52 20:52 WBC 7.0 RBC 5.29 Hgb 14.0 D Hct 44.4 D MCV 83.9 MCH 26.5 L MCHC 31.5 RDW 22.5 H Plt Count 187 D MPV 10.2 Immature Gran % (Auto) 0.3 Neut % (Auto) 74.0 H Lymph % (Auto) 15.2 L [place] % (Auto) 9.2 Eos % (Auto) 0.9 Baso % (Auto) 0.4 Lymph # (Auto) 1.1 L [place] # (Auto) 0.6 Eos # (Auto) 0.1 Baso # (Auto) 0.0 Abs Immat Gran (auto) 0.02 Absolute Neuts (auto) 5.2 Absolute Nucleated RBC 0.000 Nucleated RBC % (auto) 0.0 PT INR aPTT Heparin Protocol D-Dimer High Sensitivty Sodium 142 Potassium 3.7 Chloride 102 Carbon Dioxide 30 H Anion Gap 14 BUN 22 H Creatinine 1.28 Estim Creat Clear Calc 47.6 Estimated GFR 54 Random Glucose 110 Estimat Average Glucose Hemoglobin A1c % Calcium 9.2 D Troponin I High Sens Triglycerides Cholesterol LDL Cholesterol, Calc HDL Cholesterol TSH COVID-19 (JONAS) Negative COVID-19 Clin Com See Note 10/11/21 10/11/21 10/11/21 20:52 20:52 22:55 WBC RBC Hgb Hct MCV MCH MCHC RDW Plt Count MPV Immature Gran % (Auto) Neut % (Auto) Lymph % (Auto) [place] % (Auto) Eos % (Auto) Baso % (Auto) Lymph # (Auto) [place] # (Auto) Eos # (Auto) Baso # (Auto) Abs Immat Gran (auto) Absolute Neuts (auto) Absolute Nucleated RBC Nucleated RBC % (auto) PT INR aPTT Heparin Protocol D-Dimer High Sensitivty Sodium Potassium Chloride Carbon Dioxide Anion Gap BUN Creatinine Estim Creat Clear Calc Estimated GFR Random Glucose Estimat Average Glucose Hemoglobin A1c % Calcium Troponin I High Sens 22.0 107.0 H* D Triglycerides Cholesterol LDL Cholesterol, Calc HDL Cholesterol TSH 0.99 COVID-19 (JONAS) COVID-19 Clin Com 10/12/21 10/12/21 10/12/21 00:27 00:44 04:50 WBC 8.0 8.8 RBC 5.05 5.14 Hgb 13.2 L 13.4 L Hct 42.3 43.5 MCV 83.8 84.6 MCH 26.1 L 26.1 L MCHC 31.2 30.8 L RDW 22.5 H 22.7 H Plt Count 180 173 MPV 10.2 10.9 Immature Gran % (Auto) 0.1 Neut % (Auto) 66.1 Lymph % (Auto) 23.1 [place] % (Auto) 9.2 Eos % (Auto) 1.0 Baso % (Auto) 0.5 Lymph # (Auto) 2.0 [place] # (Auto) 0.8 Eos # (Auto) 0.1 Baso # (Auto) 0.0 Abs Immat Gran (auto) 0.01 Absolute Neuts (auto) 5.8 Absolute Nucleated RBC 0.000 0.000 Nucleated RBC % (auto) 0.0 0.0 PT 11.4 INR 1.0 aPTT Heparin Protocol 29.8 L D-Dimer High Sensitivty < 150 Sodium Potassium Chloride Carbon Dioxide Anion Gap BUN Creatinine Estim Creat Clear Calc Estimated GFR Random Glucose Estimat Average Glucose Hemoglobin A1c % Calcium Troponin I High Sens Triglycerides Cholesterol LDL Cholesterol, Calc HDL Cholesterol TSH COVID-19 (JONAS) COVID-19 Clin Com 10/12/21 10/12/21 10/12/21 04:50 06:39 08:48 WBC RBC Hgb Hct MCV MCH MCHC RDW Plt Count MPV Immature Gran % (Auto) Neut % (Auto) Lymph % (Auto) [place] % (Auto) Eos % (Auto) Baso % (Auto) Lymph # (Auto) [place] # (Auto) Eos # (Auto) Baso # (Auto) Abs Immat Gran (auto) Absolute Neuts (auto) Absolute Nucleated RBC Nucleated RBC % (auto) PT INR aPTT Heparin Protocol > 200.0 H* D D-Dimer High Sensitivty Sodium 140 Potassium 4.3 Chloride 102 Carbon Dioxide 27 Anion Gap 15 BUN 22 H Creatinine 1.02 Estim Creat Clear Calc 59.8 Estimated GFR > 60 Random Glucose 104 Estimat Average Glucose Hemoglobin A1c % Calcium 9.2 Troponin I High Sens 129.0 H* Triglycerides Cholesterol LDL Cholesterol, Calc HDL Cholesterol TSH COVID-19 (JONAS) COVID-19 [facility] 10/12/21 10/12/21 10/12/21 08:48 08:48 08:48 WBC RBC Hgb Hct MCV MCH MCHC RDW Plt Count MPV Immature Gran % (Auto) Neut % (Auto) Lymph % (Auto) [place] % (Auto) Eos % (Auto) Baso % (Auto) Lymph # (Auto) [place] # (Auto) Eos # (Auto) Baso # (Auto) Abs Immat Gran (auto) Absolute Neuts (auto) Absolute Nucleated RBC Nucleated RBC % (auto) PT INR aPTT Heparin Protocol 51.6 L D D-Dimer High Sensitivty Sodium Potassium Chloride Carbon Dioxide Anion Gap BUN Creatinine Estim Creat Clear Calc Estimated GFR Random Glucose Estimat Average Glucose 123 Hemoglobin A1c % 5.9 Calcium Troponin I High Sens Triglycerides 199 Cholesterol 138 LDL Cholesterol, Calc 56 HDL Cholesterol 43 TSH COVID-19 (JONAS) COVID-19 [facility] ECG Interpretation: EKG with sinus rhythm at 88/Min; no significant ST-T changes and otherwise unremarkable. Telemetry is also unremarkable. Assessment and Plan (1) Palpitations: Status: Acute (2) Non-ST elevation CT (NSTEMI): Status: Acute (3) Hypertension: Qualifiers: Hypertension type: essential hypertension Qualified Code(s): I10 - Essential (primary) hypertension Status: Acute Plan With regard to the patient's concern of heart rate in the 200s, not clear if he had atrial arrhythmia like atrial fibrillation or flutter. Less likely ventricular tachycardia but cannot exclude completely. We will monitor on telemetry. With regard to the troponins, 1st set was 22. Second set 107. Third set 129. Unclear if he had atrial arrhythmia as above which led to secondary troponin leak. The presentation does not appear to be a type 1 NSTEMI. We will repeat his echocardiogram to assess for any LVEF changes or wall motion abnormalities. We can keep on IV heparin for the time being. Will monitor on telemetry for recurrent arrhythmias. He will need ischemia evaluation and timing will need to be decided. As an outpatient we had ordered a stress test and we may have to do that as an inpatient or consider invasive studies but will decide in due course. Will follow-up tomorrow. With regard to hypertension, he was on atenolol/chlorthalidone. We had added amlodipine. But not clear if he actually stopped the atenolol after he started amlodipine. In any case blood pressure seems normal today. Will monitor. Discussed with Dr. Morse. Procedures Date of Service Date of Service: 10/12/21
[2021-10-12 11:12] VITALS: BP 153/81; PULSE 74; RESP 18; TEMP 36.8; O2SAT 97
--- NOTE | 2021-10-12 11:13 | PC.NURSE ---
patient a&ox3, heparin drip running @ 7.92 u/kg/hr, pie icer machine intact, nsr 70s. vss, pt denies pain or discomfort, speaking in full sentences, lungs clear, ambulates independently, will continue to monitor
--- NOTE | 2021-10-12 11:47 | P.PNIM_ITS ---
Subjective Subjective Date of Service: 10/12/21 Interval History: cc: palpitations interval history: resolved Cardiovascular Cardiovascular: Reports no additional cardiovascular complaints Respiratory Respiratory: Reports no additional respiratory complaints Physical Exam Vital Signs: Vital Signs: Last Vital Signs Temp 98.2 F 10/12/21 11:12 Pulse 74 10/12/21 11:12 Resp 18 10/12/21 11:12 BP 153/81 H 10/12/21 11:12 Pulse Ox 97 10/12/21 11:12 O2 Del Method 10/12/21 11:12 BMI result Body Mass Index 29.0 General: AO X 3, no acute distress Resp: CTA bilateral, no accessory muscles used CVS: S1,S2,RRR GI: soft, non tender, non distended Neuro: motor grossly intact, alert Psych: appropriate affect, appropriate insight Objective Data Active Medications Aspirin (Aspirin 81 Mg Tab.Chew) 81 mg PO DAILY [facility] Last Admin: 10/12/21 07:55 Dose: 81 mg Documented By: PAMELA Atorvastatin Calcium (Atorvastatin Calcium 40 Mg Tablet) 40 mg PO BEDTIME [facility] Heparin Sodium (Porcine) (Heparin Sodium,Porcine 5,000 Unit/Ml Vial) 3,400 unit 40 unit/kg (3400 unit) IVPUSH PROTOCOL BOLUS PRN; Protocol PRN Reason: 40 unit/kg - Heparin Protocol Heparin Sodium (Porcine) (Heparin Sodium,Porcine 5,000 Unit/Ml Vial) 6,700 unit 80 unit/kg (6700 unit) IVPUSH PROTOCOL BOLUS PRN; Protocol PRN Reason: 80 unit/kg - Heparin Protocol Heparin Sodium/Sodium Chloride () 25,000 unit in 250 mls @ 0 mls/hr IVCONT .Q0M [facility]; Protocol Last Titration: 10/12/21 09:45 Dose: 7.92 units/kg/hr, 6.65 mls/hr Documented By: SPEEDY Co-signed By: FANTA Metoprolol Tartrate (Metoprolol Tartrate 25 Mg Tablet) 25 mg PO BID [facility]; Protocol Last Admin: 10/12/21 08:00 Dose: Not Given Documented By: PAMELA Non-Admin Reason: Patient Refused Non-Formulary Medication (Buprenorphine Hcl [Belbuca]) 600 mcg BUCCAL Q12H [facility] Omeprazole (Omeprazole 40 Mg Capsule.) 40 mg PO DAILY@0630 [facility] Last Admin: 10/12/21 07:56 Dose: 40 mg Documented By: PAMELA Sodium Chloride (0.9 % Sodium Chloride Flush 3 Ml Syringe) 3 ml IVFLUSH QSHIFT [facility] Last Admin: 10/12/21 03:04 Dose: Not Given Documented By: IVETTE Non-Admin Reason: IV Running Venlafaxine HCl (Venlafaxine Hcl Er 75 Mg Cap.Er.24h) 75 mg PO DAILY [facility] Last Admin: 10/12/21 07:56 Dose: 75 mg Documented By: PAMELA Labs CBC & Chem 7: 10/12/21 04:50 10/12/21 04:50 Labs: Laboratory Results - last 24 hr 10/11/21 10/11/21 10/11/21 20:52 20:52 20:52 MCV 83.9 MCH 26.5 L MCHC 31.5 RDW 22.5 H Plt Count 187 D MPV 10.2 Immature Gran % (Auto) 0.3 Neut % (Auto) 74.0 H Lymph % (Auto) 15.2 L [place] % (Auto) 9.2 Eos % (Auto) 0.9 Baso % (Auto) 0.4 Lymph # (Auto) 1.1 L [place] # (Auto) 0.6 Eos # (Auto) 0.1 Baso # (Auto) 0.0 Abs Immat Gran (auto) 0.02 Absolute Neuts (auto) 5.2 Absolute Nucleated RBC 0.000 Nucleated RBC % (auto) 0.0 PT INR aPTT Heparin Protocol D-Dimer High Sensitivty Anion Gap 14 Estim Creat Clear Calc 47.6 Estimated GFR 54 Random Glucose 110 Estimat Average Glucose Hemoglobin A1c % Calcium 9.2 D Troponin I High Sens Triglycerides Cholesterol LDL Cholesterol, Calc HDL Cholesterol TSH COVID-19 (JONAS) Negative COVID-19 Clin Com See Note 10/11/21 10/11/21 10/11/21 20:52 20:52 22:55 MCV MCH MCHC RDW Plt Count MPV Immature Gran % (Auto) Neut % (Auto) Lymph % (Auto) [place] % (Auto) Eos % (Auto) Baso % (Auto) Lymph # (Auto) [place] # (Auto) Eos # (Auto) Baso # (Auto) Abs Immat Gran (auto) Absolute Neuts (auto) Absolute Nucleated RBC Nucleated RBC % (auto) PT INR aPTT Heparin Protocol D-Dimer High Sensitivty Anion Gap Estim Creat Clear Calc Estimated GFR Random Glucose Estimat Average Glucose Hemoglobin A1c % Calcium Troponin I High Sens 22.0 107.0 H* D Triglycerides Cholesterol LDL Cholesterol, Calc HDL Cholesterol TSH 0.99 COVID-19 (JONAS) COVID-19 Clin Com 10/12/21 10/12/21 10/12/21 00:27 00:44 04:50 MCV 83.8 84.6 MCH 26.1 L 26.1 L MCHC 31.2 30.8 L RDW 22.5 H 22.7 H Plt Count 180 173 MPV 10.2 10.9 Immature Gran % (Auto) 0.1 Neut % (Auto) 66.1 Lymph % (Auto) 23.1 [place] % (Auto) 9.2 Eos % (Auto) 1.0 Baso % (Auto) 0.5 Lymph # (Auto) 2.0 [place] # (Auto) 0.8 Eos # (Auto) 0.1 Baso # (Auto) 0.0 Abs Immat Gran (auto) 0.01 Absolute Neuts (auto) 5.8 Absolute Nucleated RBC 0.000 0.000 Nucleated RBC % (auto) 0.0 0.0 PT 11.4 INR 1.0 aPTT Heparin Protocol 29.8 L D-Dimer High Sensitivty < 150 Anion Gap Estim Creat Clear Calc Estimated GFR Random Glucose Estimat Average Glucose Hemoglobin A1c % Calcium Troponin I High Sens Triglycerides Cholesterol LDL Cholesterol, Calc HDL Cholesterol TSH COVID-19 (JONAS) COVID-19 Clin Com 10/12/21 10/12/21 10/12/21 04:50 06:39 08:48 MCV MCH MCHC RDW Plt Count MPV Immature Gran % (Auto) Neut % (Auto) Lymph % (Auto) [place] % (Auto) Eos % (Auto) Baso % (Auto) Lymph # (Auto) [place] # (Auto) Eos # (Auto) Baso # (Auto) Abs Immat Gran (auto) Absolute Neuts (auto) Absolute Nucleated RBC Nucleated RBC % (auto) PT INR aPTT Heparin Protocol > 200.0 H* D D-Dimer High Sensitivty Anion Gap 15 Estim Creat Clear Calc 59.8 Estimated GFR > 60 Random Glucose 104 Estimat Average Glucose Hemoglobin A1c % Calcium 9.2 Troponin I High Sens 129.0 H* Triglycerides Cholesterol LDL Cholesterol, Calc HDL Cholesterol TSH COVID-19 (JONAS) COVID-19 Clin Com 10/12/21 10/12/21 10/12/21 08:48 08:48 08:48 MCV MCH MCHC RDW Plt Count MPV Immature Gran % (Auto) Neut % (Auto) Lymph % (Auto) [place] % (Auto) Eos % (Auto) Baso % (Auto) Lymph # (Auto) [place] # (Auto) Eos # (Auto) Baso # (Auto) Abs Immat Gran (auto) Absolute Neuts (auto) Absolute Nucleated RBC Nucleated RBC % (auto) PT INR aPTT Heparin Protocol 51.6 L D D-Dimer High Sensitivty Anion Gap Estim Creat Clear Calc Estimated GFR Random Glucose Estimat Average Glucose 123 Hemoglobin A1c % 5.9 Calcium Troponin I High Sens Triglycerides 199 Cholesterol 138 LDL Cholesterol, Calc 56 HDL Cholesterol 43 TSH COVID-19 (JONAS) COVID-19 Clin Com Assessment and Plan (1) Non-ST elevation CO (NSTEMI): Status: Acute Plan 80M presented with palpitations and tachycardia, found to have elevated torponin NSTEMI likely not type I more type II related to tachyarrhythmia IV heparin on metoprolol monitor tele echo asa, statin cardio following HTN on metoprolol DVT prophylaxis:? Patient on heparin drip Code status: Full code reason for continued hospitalization: ongoing iv heparin for possible acs Quality Stroke Does the patient have a stroke diagnosis?: No VTE Prior VTE?: No VTE Risk Level:: Medical - moderate - high VTE Device Contraindication: Treatment Not Indicated VTE Drug Contraindication: N/A - Med Ordered
--- NOTE | 2021-10-12 12:17 | PC.NURSE ---
called floor & tiger texted nurse to give report, they will call the unit when ready- anesthesia technician stated the room is not yet cleaned
[2021-10-12 15:19] VITALS: BP 137/73; PULSE 70; RESP 14; TEMP 36.8; O2SAT 90
[2021-10-12 16:00] VITALS: O2SAT 92
[2021-10-12] MEDS: Heparin Sodium,Porcine 5,000 UNIT/ML VIAL 3400 UNIT IVPUSH (18:03)
[2021-10-12 18:56] VITALS: BP 143/75; PULSE 77; RESP 14; TEMP 36.8; O2SAT 97
[2021-10-12] MEDS: Metoprolol Tartrate 25 MG TABLET PO (20:03)
[2021-10-12] MEDS: Atorvastatin Calcium 40 MG TABLET PO (20:03)
[2021-10-12 22:54] LABS: PTT Heparin Drip 95.5 SEC (53-77.9)
[2021-10-12 23:45] VITALS: BP 148/79; PULSE 86; RESP 18; TEMP 37; O2SAT 97
[2021-10-13 03:56] VITALS: BP 138/78; PULSE 77; RESP 18; TEMP 36; O2SAT 98
[2021-10-13] MEDS: Omeprazole 40 MG CAPSULE.DR PO (05:41)
[2021-10-13 05:44] LABS: Hematocrit 43.6 % (42.0-52.0); Hemoglobin 13.8 g/dl (14.0-18.0); Mean Corpuscular HGB Conc 31.7 g/dl (31.0-36.0); Mean Corpuscular Hemoglobin 26.4 pg (27.0-33.0); Mean Corpuscular Volume 83.5 fL (80.0-98.0); Mean Platelet Volume 10.3 fL (9.4-12.4); Platelet Count 175 X10*3/uL (160-400); Red Blood Count 5.22 X10*6/uL (4.60-5.80); Red Cell Distribution Width 22.4 % (11.0-16.0); White Blood Count 6.5 X10*3/uL (4.8-10.8)
[2021-10-13 05:49] LABS: Prothrombin Time 11.8 SEC (9.9-13.0)
[2021-10-13] MEDS: Heparin Sodium,Porcine 5,000 UNIT/ML VIAL 3400 UNIT IVPUSH (06:20)
--- NOTE | 2021-10-13 07:00 | CA_ITS ---
Transthoracic Echocardiogram Patient (Last, First, Middle): Wild Alberto J Gender: Male Date of : 1940 Age: 80 Procedure Date: 10/13/2021 Procedure Type: Transthoracic Echocardiogram Location[place] [facility] [place] Height: 170.18 cm Weight: 83.92 kg BSA: 1.96 m2 Heart Rate: bpm BP: 124 / 77 mmHg Financial Sales Manager: YR/TO Referring MD: José Galaviz MD Symptoms: NSTEMI Study Quality: Good ECG Rhythm: Sinus Conclusions: - The left ventricular systolic function is normal. The calculated ejection fraction is 65% by biplane method. - There is no evidence of regional wall motion abnormalities. Findings Left Ventricle Normal left ventricular cavity size. There is normal left ventricular wall thickness. The left ventricular systolic function is normal. The calculated ejection fraction is 65% by biplane method. There is no evidence of regional wall motion abnormalities. Focal hypertrophy of the basal septum. Right Ventricle Normal right ventricular cavity size and systolic function. Prior Study Comparison No significant change compared to prior study dated: 09/21/2021. Measurements 2D Linear Measurements IVSd: 1.19 0.6-0.9/0.6-1.0 cm LVIDd: 2.62 3.9-5.3/4.2-5.9 cm LVIDd Index: 1.34 2.4-3.2/2.2-3.1 cm/m2 LVIDs: 1.91 2.0-3.6 cm LVPWd: 1.04 0.7-1.1 cm LV Mass: 99.94 67-162/88-224 g LV Mass Index: 50.99 43-95/49-115 g/m2 2D Systolic Function EF 4C: 57.90 >55% EF 2C: 71.40 >55% EF BiP: 65.00 >55% Mitral Valve MV Pk E: 0.93 MV PK A: 1.13 MV Decel Time: 235.00 E/A: 0.80 E'Lateral: 6.09 E'Medial: 7.72 E/E' Med: 12.10 E/E' Lat: 15.30 PHT: 69.00 MVA PHT: 3.19 Decel [place]: 3.98 Diastolic Function MV Pk E: 0.93 MV Pk A: 1.13 E/A: 0.80 E'Medial: 7.72 E/E' Med: 12.10 E' Laterial: 6.09 E/E' Lat: 15.30 Updated in Other Vendor System with Status of Final Gianni Marc MD electronically signed on 10/13/2021 9:50:25 AM with status of Final
[2021-10-13 08:00] VITALS: BP 168/86; PULSE 78; RESP 19; TEMP 36.5; O2SAT 97
[2021-10-13] MEDS: Metoprolol Tartrate 25 MG TABLET PO (08:00)
[2021-10-13] MEDS: Aspirin 81 MG TAB.CHEW PO (08:00)
[2021-10-13] MEDS: Venlafaxine HCl ER 75 MG CAP.ER.24H PO (08:00)
--- NOTE | 2021-10-13 11:20 | P.PNCA_ITS ---
Subjective Subjective Date of Service: 10/13/21 Interval history: He states that he is doing fine. He is not having any chest pain or in fact any other cardiac complaints at this time. Does not have any fluttering or high heart rate since admission. Review of Systems Review of Systems Yes all other systems are reviewed and are negative Constitutional: Reports as per HPI Eyes: Reports as per HPI Reports as per HPI Cardiovascular: Reports as per HPI, Denies acrocyanosis, Denies cool extremities, Denies chest pain, Denies leg edema, Denies lightheadedness, Denies palpitations and Denies dyspnea Respiratory: Reports as per HPI, Reports no additional respiratory complaints and Denies dyspnea Gastrointestinal: Reports as per HPI and Reports no additional gastrointestinal complaints Genitourinary: Reports no additional male genitourinary complaints and Reports as per HPI Musculoskeletal: Reports no additional musculoskeletal complaints and Reports as per HPI Skin/Breast: Reports system reviewed and no additional complaints, except as docu Reports system reviewed and no additional complaints, except as documented and Reports as per HPI Psychiatric: Reports no additional psychiatric complaints and Reports as per HPI Endocrine: Reports no additional endocrine complaints, Reports as per HPI and Denies palpitations Hematologic/Lymphatic: Reports no additional hematologic/lymphatic complaints and Reports as per HPI Allergic/Immunologic: Reports no additional allergic/immunologic complaints and Reports as per HPI Physical Exam Vital Signs: Last Vital Signs Temp 97.7 F 10/13/21 08:00 Pulse 78 10/13/21 08:00 Resp 19 10/13/21 08:00 BP 168/86 H 10/13/21 08:00 Pulse Ox 97 10/13/21 08:00 O2 Del Method 10/13/21 08:00 BMI result Body Mass Index 29.0 Const General: comfortable and no acute distress Orientation/consciousness: patient oriented x3 HEENT Other: Unremarkable Head: Yes normal to inspection Neck Neck: Yes normal visual inspection Chest Chest palpation & inspection: normal inspection of the chest Resp Auscultation: clear to auscultation bilaterally Cardio Palpation: normal PMI Heart sounds: S1 normal heart sound present, S2 normal heart sound present, no gallops, no murmurs and no rubs GI Palpation (GI): Soft to palpation Back/Spine/Pelvis Other: unremarkable Skin General skin exam: no rashes or lesions noted Neuro General: patient oriented x3 Extrem General: Yes normal to inspection Psych Mental Status: mental status grossly normal Objective Labs and Meds Result diagrams: 10/13/21 05:17 10/12/21 04:50 Lab results: Laboratory Results - last 24 hr 10/12/21 10/12/21 10/13/21 16:20 22:25 05:17 WBC 6.5 RBC 5.22 Hgb 13.8 L Hct 43.6 MCV 83.5 MCH 26.4 L MCHC 31.7 RDW 22.4 H Plt Count 175 MPV 10.3 Absolute Nucleated RBC 0.000 Nucleated RBC % (auto) 0.0 PT INR aPTT Heparin Protocol 43.0 L 95.5 H D 10/13/21 10/13/21 05:17 05:17 WBC RBC Hgb Hct MCV MCH MCHC RDW Plt Count MPV Absolute Nucleated RBC Nucleated RBC % (auto) PT 11.8 INR 1.0 aPTT Heparin Protocol 45.0 L D Progress Note: A&P Assessment and plan (1) Palpitations: Status: Acute Assessment and Plan: Possible atrial arrhythmia but not identified as there is no abnormality in rhythm since admission. We will arrange for a 14 day Holter. To be done th rough outpatient. If he identify any atrial fibrillation or flutter, then we can do long-term anticoagulation. Otherwise, we could also consider empiric anticoagulation. To be decided. (2) Non-ST elevation [place] (NSTEMI): Status: Acute Assessment and Plan: Suspect demand related troponin leak from arrhythmias. He does not have any chest pain at this time and is completely asymptomatic. Received IV heparin for 48 hours. We will add aspirin. He is already on statins at home. He is also on beta-blockers. A stress test was ordered last week through the office and that can be performed and we will try to expedite. Based on this, further plan to be decided. (3) Hypertension: Status: Acute Assessment and Plan: He takes atenolol/chlorthalidone at home. We started amlodipine last week and he strongly feels that the tachycardia started after the amlodipine although it may just be incidental. Discussed at length about this but he does not want to take it. Hence we can try a different agent like SUZETTE inhibitor. Follow-up BMP in a few days time. Plan Discussed findings as well as care plan with at the bedside in detail. All questions answered. Also discussed with Dr. Morse. Time Spent With Patient Time: Total time spent is greater than 50% in coordination of care (as documented) at patient's floor/unit and/or counseling patient: 35min. Progress Note: Quality Stroke Does the patient have a stroke diagnosis?: No Procedures Date of Service Date of Service: 10/13/21
--- NOTE | 2021-10-13 11:24 | P.DS_ITS ---
DS: Providers Provider Date of Service: 10/13/21 Date of admission: 10/11/21 23:44 Primary care physician: Estella Gross MD Consults: 10/11/21 23:44 Consult to Cardiology Routine Consulting Provider: Gianni Marc Reason for consultation: palpitations /chest pain; elevated troponin DS: Diagnosis Discharge Diagnosis (1) Non-ST elevation ID (NSTEMI): Status: Acute DS: Summary Hospital Course Hospital Course: from initial hpi: Chief Complaint: Palpitations 80-year-old male with a past medical history of hypertension, hyperlipidemia, CKD, GERD, chronic back pain, glucose intolerance, scoliosis, anxiety, diastolic CHF presented to the hospital today with a chief complaint of palpitations/chest heaviness.? Patient reported that lately his blood pressure has been poorly controlled; has been following with cardiology who recently stopped his atenolol/hydrochlorothiazide and start him on amlodipine.? Today he noted to have palpitations with heart rate in 200s; associated the chest heaviness and mild shortness of breath.? Currently improved at the time of my interview.? With heart rate in 70s and no chest pain.? Patient reports that he had similar episode about couple days ago which lasted for few seconds and subsequently resolved.? Denies any headaches numbness tingling or focal weakness.? Denies any fever chills cough.? Denies any GI symptoms.? Patient when he had chest pain no associated symptoms reported.? Review of all other systems is negative except mentioned above ER course: Per ER team patient's EKG was nonischemic initial troponin was 22 and follow-up troponin went up to 100.7; patient was started on heparin drip for possible NSTEMI.? Cardiology was notified.? Chest x-ray showed no acute findings.? Admitted to the hospital for further management. hospital course: Patient was admitted for non ST elevation myocardial infarction, fall not to be type 1, more likely type 2 related to patient's reported tachyarrhythmia at home. He was empirically treated with IV heparin. He had no further events on telemetry. Echocardiogram was unremarkable. He was seen by Cardiology recommended baby aspirin and following up outpatient for Holter. He will jose angel nue on atenolol/chlorthalidone for his hypertension and add on lisinopril on discharge. bmp should be followed up. Time Spent with Patient Time attestation: Total time spent providing and/or coordinating discharge services: Discharge coordination time: Greater than 30 minutes Quality: Safe Use of Opioids Does Pt have an Active Cancer Diagnosis on the Problem List?: No Quality: Stroke Does the patient have a stroke diagnosis?: No Physical Exam Vital Signs: Vital Signs: Last Vital Signs Temp 97.7 F 10/13/21 08:00 Pulse 78 10/13/21 08:00 Resp 19 10/13/21 08:00 BP 168/86 H 10/13/21 08:00 Pulse Ox 97 10/13/21 08:00 O2 Del Method 10/13/21 08:00 BMI result Body Mass Index 29.0 General: AO X 3, no acute distress Resp: CTA bilateral, no accessory muscles used CVS: S1,S2,RRR GI: soft, non tender, non distended Neuro: motor grossly intact, alert Psych: appropriate affect, appropriate insight DS: Data Data Completed and Pending Labs on day of discharge: Laboratory Results - last 24 hr 10/12/21 10/12/21 10/13/21 16:20 22:25 05:17 WBC 6.5 RBC 5.22 Hgb 13.8 L Hct 43.6 MCV 83.5 MCH 26.4 L MCHC 31.7 RDW 22.4 H Plt Count 175 MPV 10.3 Absolute Nucleated RBC 0.000 Nucleated RBC % (auto) 0.0 PT INR aPTT Heparin Protocol 43.0 L 95.5 H D 10/13/21 10/13/21 05:17 05:17 WBC RBC Hgb Hct MCV MCH MCHC RDW Plt Count MPV Absolute Nucleated RBC Nucleated RBC % (auto) PT 11.8 INR 1.0 aPTT Heparin Protocol 45.0 L D Discharge Plan Discharge Patient Disposition: Home, Self-Care Discharge Diagnosis: tachycardia, nstemi type II Referrals: Po,Estella Machado MD [Primary Care Provider] - 1 Week Discharge Medications: New aspirin 81 mg tablet,delayed release (DR/EC) 81 mg PO DAILY Qty: 30 0RF lisinopril 5 mg tablet 5 mg PO DAILY Qty: 30 0RF Continued rosuvastatin [Crestor] 20 mg tablet 20 mg PO DAILY Qty: 30 0RF [place] 600 mcg film 600 mcg buccal Q12H Qty: 60 0RF omeprazole 40 mg capsule,delayed release(DR/EC) 40 mg PO DAILY Qty: 90 3RF venlafaxine 75 mg capsule,extended release 24hr 1 cap PO DAILY atenolol-chlorthalidone 100-25 mg tablet 1 tab PO DAILY Discharge Orders: Discharge Order (Routine); Ordered 10/13/21 Ordered By: Jamarcus Morse Diet: advance to usual diet Activity on Discharge: As tolerated Stand Alone Forms: Patient Portal Discharge page Other Ambulatory Orders: Basic Metabolic Panel (Routine) Timeframe: 2 Days Facility: [facility] - Location: Laboratory Ordered By: Jamarcus Morse Care Plan Goals: recovery Health Concerns: palpitations Plan of Treatment: cotninue atenolol, start baby aspirin and lisinopril, follow up with cardiology, plan for holter, follow up bmp Assessment: see above Discharge Date/Time: 10/13/21 12:29
--- NOTE | 2021-10-13 11:28 | MHC.CM.PN ---
Per MD, Patient has been medically cleared for dc to home today, self care. Last IMM addressed yesterday.
[2021-10-13 11:33] VITALS: BP 135/79; PULSE 80; RESP 18; TEMP 36.9; O2SAT 94
== END 2021-10-13 12:29 | disposition home or self-care (01) | DRG 281 ==
LOC: HO.ED 21:13 → HO.EDOVER 23:49 → HO.IMC 10-12 11:43
PROVIDERS: Family Medicine; Admitting Provider Hospitalist; Emergency Provider Internal Medicine; PCP Internal Medicine; Visit Provider Internal Medicine
DX: R00.0 Tachycardia, unspecified (principal); I21.A1 Myocardial infarction type 2; I13.0 Hypertensive heart and chronic kidney disease with heart failure and stage 1 through stage 4 chronic kidney disease, or unspecified chronic kidney disease; I50.32 Chronic diastolic (congestive) heart failure; E78.5 Hyperlipidemia, unspecified; G89.29 Other chronic pain; F41.9 Anxiety disorder, unspecified; K21.9 Gastro-esophageal reflux disease without esophagitis; N18.30 Chronic kidney disease, stage 3 unspecified; Z20.822 Contact with and (suspected) exposure to COVID-19; Z87.891 Personal history of nicotine dependence; Z79.899 Other long term (current) drug therapy
CPT/HCPCS: 36415; 80048; 80061; 83036; 84443; 84484; 85025; 85027; 85379; 85610; 85730; 87635; 93005; 93308; 96365; 96375; 99285

== ENCOUNTER → 2021-11-23 13:54 | Outpatient (BNVA) | payer MEDICARE, SELFPAY | PROVIDERS: PCP Internal Medicine; Visit Provider Physician Assistant | DX: R19.5 Other fecal abnormalities (principal); N18.31 Chronic kidney disease, stage 3a; I21.4 Non-ST elevation (NSTEMI) myocardial infarction; K21.9 Gastro-esophageal reflux disease without esophagitis | CPT/HCPCS: 99202; 99212 ==

== ENCOUNTER → 2021-11-25 09:49 | Outpatient (REF) | payer MEDICARE, SELFPAY ==
--- NOTE | ~2021-11-25 | NM_ITS ---
Myocardial perfusion study Indication: Shortness of breath evaluate for myocardial ischemia Technique: The patient was brought in for a Lexiscan perfusion study on 11/25/2021. Patient performed low-level exercise and was injected 0.4 mg of Lexiscan intravenously. Within a minute of injection, 25 mCi of sestamibi was given intravenously. Images were obtained using the SPECT gamma camera interlaced with the gating device. Images were obtained in supine position. Resting perfusion study was performed on 11/29/2021. Patient was administered 25 mCi of sestamibi intravenously at rest. Images were then obtained in supine position. Images obtained with and without CT attenuation. Total DLP 93 mGy-cm. Images were processed with the software and compared side to side in short axis, horizontal long axis and vertical long axis views. Findings: The stress perfusion study showed non attenuated images show mildly reduced uptake in the inferoapical and apical thinning of the mid inferior wall of the LV myocardium. Attenuation corrected images show normal uptake of radiotracer in all segments of LV myocardium.. The gated study shows normal LV systolic function with calculated LVEF of 72%. LV cavity is normal in size. The gated study shows normal systolic wall thickening and contraction of segments. Resting study shows suboptimal due to intense subdiaphragmatic uptake interfering with basal inferior and basal inferolateral uptake. Non attenuated images show mildly to moderately reduced uptake in the inferior wall of the LV myocardium. Attenuated corrected images are suboptimal.. Gating at rest reveals normal systolic wall motion with ejection fraction at greater than 60%. The findings are consistent with normal myocardial perfusion. NM/NM cardiolite stress test Impression: 1. Myocardial perfusion imaging study shows normal myocardial perfusion 2. Gated LVEF is 72% 3. Transient ischemic dilatation not present EKG is nondiagnostic for ischemia
--- NOTE | 2021-11-25 09:53 | CA_ITS ---
Acquisition Time: 2021-11-25 10:40:42 Total Exercise Time: 00:02:00 Test Indications: SOB, ELEVATED TROPS Medications: SEE CHART Protocol: LEXISCAN Max HR: 106 BPM 75% of Pred: 140 BPM Max BP: 142/074 mmHG Max Work Load: 1.0 METS Pharmacological stress test with Lexiscan injection, while sitting and kicking his legs, without anginal symptoms, without arrythmia, with normotensive response to injection, with nondiagnostic EKG for ischemia. In recovery he reported some abdominal upset with was treated with Aminophylline 75mg IVP to reverse Lexiscan with resolution of symptom. Nuclear images pending. Test reviewed with Dr Mendez Referred By: Gianni Marc Overread By: ANASTASIA FRIAS
== END ==
LOC: HO.CARD 09:49
PROVIDERS: PCP Internal Medicine; Visit Provider Internal Medicine
DX: R06.02 Shortness of breath (principal)
CPT/HCPCS: 78452; 93017; A9500; J0280; J2785

== ENCOUNTER → 2022-01-25 13:37 | Outpatient (BNVA) | payer MEDICARE, SELFPAY | PROVIDERS: PCP Internal Medicine; Referring Provider Internal Medicine; Visit Provider Nurse Practitioner Family | DX: Z01.810 Encounter for preprocedural cardiovascular examination (principal); R00.2 Palpitations; R06.02 Shortness of breath; I51.89 Other ill-defined heart diseases; I25.2 Old myocardial infarction; Z79.82 Long term (current) use of aspirin; Z79.899 Other long term (current) drug therapy | CPT/HCPCS: 93005; 99212 ==

== ENCOUNTER 2023-02-17 09:32 | Outpatient (REF) | payer MEDICARE, SELFPAY ==
[2023-02-17 09:54] LABS: MANUAL DIFF FLAG NO
[2023-02-17 10:19] LABS: Basophils Absolute Auto 0.1 X10*3/uL (0.0-0.2); Basophils Percent Auto 0.7 % (0-2); Eosinophils Absolute Auto 0.1 X10*3/uL (0.0-0.4); Eosinophils Percent Auto 1.9 % (0-4); Hematocrit 43.6 % (42.0-52.0); Hemoglobin 14.6 g/dl (14.0-18.0); Imm Gran Abs Auto 0.03 X10*3/uL (0.00-0.03); Imm Gran Pct Auto 0.4 % (0.0-0.4); Immature Retic Fraction 4.6 % (2.3-13.4); Lymphocytes Absolute Auto 2.1 X10*3/uL (1.2-4.9); Mean Corpuscular HGB Conc 33.5 g/dl (31.0-36.0); Mean Corpuscular Hemoglobin 29.5 pg (27.0-33.0); Mean Corpuscular Volume 88.1 fL (80.0-98.0); Mean Platelet Volume 10.6 fL (9.4-12.4); Monocytes Absolute Auto 0.8 X10*3/uL (0.1-1.2); Monocytes Percent Auto 10.9 % (2-11); Neutrophils Absolute Auto 3.8 x10*3/uL (2.0-8.3); Neutrophils Percent Auto 55.1 % (45-73); Platelet Count 214 X10*3/uL (160-400); Red Blood Count 4.95 X10*6/uL (4.60-5.80); Red Cell Distribution Width 13.1 % (11.0-16.0); Retic HGB Equivalent 35.2 pg (30.0-35.0); Reticulocytes Absolute 0.049 X10*6/uL (0.026-0.095); White Blood Count 6.9 X10*3/uL (4.8-10.8)
[2023-02-17 10:41] LABS: Estimated Average Glucose 128 mg/dL; Hemoglobin A1c % 6.1 % (<6.0)
[2023-02-17 11:07] LABS: Alanine Aminotransferase 15 U/L (0-40); Albumin Level 4.3 g/dL (3.5-5.0); Alkaline Phosphatase 71 U/L (39-117); Anion Gap 14 (12-20); Aspartate Amino Transferase 21 U/L (5-37); Bilirubin Total 0.7 mg/dL (0.0-1.0); Blood Urea Nitrogen 17 mg/dL (9-16); Calcium 9.6 mg/dL (8.4-10.2); Carbon Dioxide 30 mmol/L (22-29); Chloride 99 mmol/L (96-108); Cholesterol 230 mg/dL (<200); Estimated Glomerular Filt Rate > 60; Glucose Random 108 mg/dL (60-115); HDL Cholesterol 39 mg/dL (>40); Iron 113 mcg/dL (45-160); LDL Cholesterol Calculated 155 mg/dL (<100); Percent Iron Saturation 36 % (15-50); Potassium 3.8 mmol/L (3.3-5.1); Sodium 139 mmol/L (135-145); Total Iron Binding Capacity 316 mcg/dL (228-428); Total Protein 7.2 g/dL (6.5-8.0); Triglycerides 180 mg/dL (<150); Unsaturated Iron Binding 203 ug/dL
[2023-02-17 11:26] LABS: Ferritin 52 ng/mL (20-250); Free T4 (Free Thyroxine) 0.93 ng/dL (0.71-1.85)
[2023-02-17 11:38] LABS: Folate 14.9 ng/mL (> or = 4.0); Vitamin B12 649 pg/mL (200-900)
== END 2023-02-17 09:33 | disposition home or self-care (01) ==
LOC: HO.LAB 09:32
PROVIDERS: PCP Internal Medicine; Visit Provider Internal Medicine
DX: D50.9 Iron deficiency anemia, unspecified (principal); E78.2 Mixed hyperlipidemia; E78.00 Pure hypercholesterolemia, unspecified; R73.02 Impaired glucose tolerance (oral)
CPT/HCPCS: 36415; 80053; 80061; 82607; 82728; 82746; 83036; 83540; 84439; 84443; 85025; 85045

== ENCOUNTER 2023-02-21 12:41 | Outpatient (AMB) | payer MEDICARE, SELFPAY ==
[2023-02-21 12:48] VITALS: BP 140/80; PULSE 69; O2SAT 96; BMI 28.3
--- NOTE | 2023-02-21 12:48 | A.OFFPC_ITS ---
Vital Signs 02/21/23 12:48 Height 5 ft 7 in Weight 181 lb BMI 28.3 BP 140/80 H Blood Pressure Location Lt brachial Position Sitting Pulse 69 Pulse Source Pulse Oximeter Pulse Oximetry (%) 96 Oxygen Delivery Method Room Air Intake Visit Reasons: Coronary artery disease Intake Note: Patient here for a follow up coronary artery disease Mobile Lab Technician Required: No Accompanied by: Self / Same As Patient Allergies No Known Allergies Allergy (Verified 02/21/23 12:51) Tobacco use date assessed: 07/25/22 Fall risk assessment: No Falls in past year Last assessed Fall Risk: 02/21/23 Dental Screening Dental Screen Date: 02/21/23 Did you have a dental visit in the last 12 months?: No Did you have a dental problem in the last 6 months where you did not have access to dental care?: No Was dental information given to patient?: Patient declined HPI Coronary artery disease HPI Details 82-year-old overweight male with impaire d glucose tolerance hypercholesterolemia GERD hypertension iron deficiency anemia coronary artery disease and lumbar spondylosis. Patient was last seen in October 2022 on narcotic pain medication. [facility] Medical History (Updated 02/21/23 @ 12:53 by Estella Gross MD) Colonoscopy refused Colon cancer screening Scoliosis SOBOE (shortness of breath on exertion) CKD (chronic kidney disease) stage 3, GFR 30-59 ml/min Hypertension GERD (gastroesophageal reflux disease) Lumbar spondylosis Hyperlipidemia Impaired glucose tolerance Overweight (BMI 25.0-29.9) Surgical History H/O tooth extraction History of removal of nevus History of arthroscopy of left knee History of appendectomy Family History Father No problems noted. Mother No problems noted. Brother Prostate cancer Son Colon cancer History of cancer chemotherapy Social History Household Members: Spouse and Family Housing: House Alcohol intake: never Patient Tobacco Use Status: Former Tobacco user Quit Date: 1969 Tobacco use type: Cigarette e-Cigarette/Vaping Use: Never Used Second Hand Smoke Exposure: No Advance Directives Date on File: 10/12/21 service: No Current occupational status: retired Cognitive needs: Yes (cane) Hearing needs: Yes Vision needs: Yes Questionnaire Thrive Questionnaire Date Thrive assessed: 11/02/22 ZARA-7 AMB Questionnaire ZARA-7 Date ZARA - 7 assessed: 11/02/22 Source: Developed by Drs. Veto Cm, Fransisca Parra, Fabrice Gómez and colleagues, with an educational juan m from [id number]. Physical exam (Primary Care) BMI result Body Mass Index 28.3 Tobacco/Smoking Status: Tobacco use Status Tobacco use date assessed 07/25/22 11/02/22 14:23 Patient Tobacco Use Status Former Tobacco user 11/02/22 14:23 Tobacco use type Cigarette 11/02/22 14:23 e-Cigarette/Vaping Use Never Used 11/02/22 14:23 Thrive Assessment: Date of Thrive Assessment Date Thrive assessed 11/02/22 11/02/22 14:23 Const General: alert; No acute distress Eyes Conjunctivae: conjunctivae normal Resp Auscultation: clear to auscultation bilaterally Cardio Rate: regular rate Rhythm: regular rhythm GI Inspection: Yes normal to inspection Extrem General: Yes normal to inspection and No edema Office Procedures Flu Questionnaire Does the patient have a severe egg allergy?: No Immunizations flu vacc [id number] 6mos up(PF) 60 mcg(15 mcgx4)/0.5 mL IM syringe Performing Provider: Estella Gross MD [facility] Documented (not given) by: AURY Iniguez on 02/21/23 12:55 Reason Not Given: Not Given Assessment and Plan Assessment & Plan (1) Positive colorectal cancer screening using Cologuard test: Comment: History of colon polyps, now with positive Cologuard- needs colon- extremely anxious- so of colon cancer- iron def- on supplement- ref EGD-persistent reflux Code(s): R19.5 - Other fecal abnormalities Plan: Patient declined colonoscopy (2) Coronary artery disease: Code(s): I25.10 - Atherosclerotic heart disease of jena coronary artery without angina pectoris Plan: Control the cholesterol, weight, blood pressure, (3) Impaired glucose tolerance: Comment: discussed about diet and exercise Code(s): R73.02 - Impaired glucose tolerance (oral) Plan: Decrease the amount of carbohydrate intake, pasta, bread, rice and potatoes are all sugar and that is aside from all the sweet stuff, remember that fruits are good but they are Sweet also. (4) Hyperlipidemia: Code(s): E78.5 - Hyperlipidemia, unspecified Qualifiers: Hyperlipidemia type: mixed hyperlipidemia Qualified Code(s): E78.2 - Mixed hyperlipidemia Plan: Avoid fried foods, chicken skin, eggs, butter margarine, pastries and meat. Be it pork or beef they have a lot of cholesterol patient is on rosuvastatin 20 mg once a day concern that the new blood work shows an elevated cholesterol. PAtient stopped it knowing the problem, will be starting this rosuvastatin again. (5) GERD (gastroesophageal reflux disease): Comment: Well controlled Code(s): K21.9 - Gastro-esophageal reflux disease without esophagitis Qualifiers: Esophagitis presence: without esophagitis Qualified Code(s): K21.9 - Gastro-esophageal reflux disease without esophagitis Plan: Avoid the foods that causes that usually spicy foods, tomato products, juices, coffee, soda and foods that your sensitive to. After eating do not lie down, allow 3-4 hours before in lie down. And keep the head of bed above 30 degrees to avoid the acid from going up. decline retesting cholesterol (6) Hypertension: Code(s): I10 - Essential (primary) hypertension Qualifiers: Hypertension type: essential hypertension Qualified Code(s): I10 - Essential (primary) hypertension Plan: Continue with blood pressure medication. Decrease salt intake and exercise patient on atenolol chlorthalidone 100 /25 once a day. BP is good (7) CKD (chronic kidney disease) stage 3, GFR 30-59 ml/min: Code(s): N18.30 - Chronic kidney disease, stage 3 unspecified Qualifiers: Chronic kidney disease stage 3 subtype: stage 3a (GFR 45-59) Qualified Code(s): N18.31 - Chronic kidney disease, stage 3a Plan: Continue to monitor, keep well hydrated avoid NSAID (8) Generalized anxiety disorder: Comment: Declined referral for counseling Code(s): F41.1 - Generalized anxiety disorder Plan: Stable (9) Lumbar spondylosis: Comment: [facility] pain 2010 Code(s): M47.816 - Spondylosis without myelopathy or radiculopathy, lumbar region Plan: Narcotic pain meds: Is being prescribed with the understanding that these medications are potentially addictive and should be used only when absolutely necessary and must always be secured. Any remaining pills should be safely disposed off appropriately. Patient is advised that narcotics can impaired judgment and one should not drive or operate heavy machinery while taking these medications. Never share these medications with anybody and do not leave them unattended. They will not be replaced under any circumstances. Orders: Orders Influenza [id number] Immunization Today Z23 - Encounter for immunization Medications: Refilled rosuvastatin (Crestor) 20 mg PO DAILY 90 days 90 tabs 3RF E78.2 - Mixed hyperlipidemia Coding Level of Care Code Est Pt Level 4 (27213) Diagnoses Positive colorectal cancer screening using Cologuard test R19.5 Coronary artery disease I25.10 Impaired glucose tolerance R73.02 Mixed hyperlipidemia E78.2 Hyperlipidemia type: mixed hyperlipidemia Gastroesophageal reflux disease without esophagitis K21.9 Esophagitis presence: without esophagitis Essential hypertension I10 Hypertension type: essential hypertension Stage 3a chronic kidney disease N18.31 Chronic kidney disease stage 3 subtype: stage 3a (GFR 45-59) Generalized anxiety disorder F41.1 Lumbar spondylosis M47.816
== END 2023-02-21 13:10 | disposition home or self-care (01) ==
PROVIDERS: PCP Internal Medicine; Visit Provider Internal Medicine
DX: I25.10 Atherosclerotic heart disease of native coronary artery without angina pectoris (principal); I12.9 Hypertensive chronic kidney disease with stage 1 through stage 4 chronic kidney disease, or unspecified chronic kidney disease; N18.31 Chronic kidney disease, stage 3a; F33.1 Major depressive disorder, recurrent, moderate
CPT/HCPCS: 99214

== ENCOUNTER 2023-06-05 13:26 | Outpatient (AMB) | payer MEDICARE, SELFPAY ==
[2023-06-05 13:32] VITALS: BP 132/68; PULSE 60; O2SAT 96; BMI 28.5
--- NOTE | 2023-06-05 13:32 | MHC.PC.OV ---
Vital Signs 06/05/23 13:32 Height 5 ft 7 in Weight 182 lb BMI 28.5 BP 132/68 Blood Pressure Location Lt brachial Position Sitting Pulse 60 Pulse Source Pulse Oximeter Pulse Oximetry (%) 96 Oxygen Delivery Method Room Air Intake Visit Reasons: cholesterol, Lumbar spondylosis Intake Note: Patient is here to follow up on cholesterol, lumbar spondylosis Commercial Administrator Required: No Allergies No Known Allergies Allergy (Verified 06/05/23 13:35) Medication List - Last Reconciled 06/05/23 by Estella Gross MD aspirin 81 mg PO DAILY atenolol-chlorthalidone 100-25 mg 1 tab PO DAILY Belbuca (buprenorphine HCl) 600 mcg buccal Q12H NS lisinopril 5 mg PO DAILY 90 days omeprazole 40 mg PO DAILY rosuvastatin (Crestor) 20 mg PO DAILY 90 days Tobacco use date assessed: 06/05/23 Fall risk assessment: No Falls in past year Last assessed Fall Risk: 06/05/23 Dental Screening Dental Screen Date: 06/05/23 HPI cholesterol, Lumbar spondylosis HPI Details 82-year-old overweight male with a history of coronary artery disease impaired glucose tolerance hypercholesterolemia GERD hypertension chronic kidney disease generalized anxiety disorder lumbar spondylosis last seen in February 2023. Patient's colonoscopy declined. February last seen [facility] Medical History (Updated 02/21/23 @ 12:53 by Estella Gross MD) Colonoscopy refused Colon cancer screening Scoliosis SOBOE (shortness of breath on exertion) CKD (chronic kidney disease) stage 3, GFR 30-59 ml/min Hypertension GERD (gastroesophageal reflux disease) Lumbar spondylosis Hyperlipidemia Impaired glucose tolerance Overweight (BMI 25.0-29.9) Surgical History H/O tooth extraction History of removal of nevus History of arthroscopy of left knee History of appendectomy Family History Father No problems noted. Mother No problems noted. Brother Prostate cancer Son Colon cancer History of cancer chemotherapy Social History Household Members: Spouse and Family Housing: House Alcohol intake: never Patient Tobacco Use Status: Former Tobacco user Quit Date: 1969 Tobacco use type: Cigarette e-Cigarette/Vaping Use: Never Used Second Hand Smoke Exposure: No Advance Directives Date on File: 10/12/21 service: No Current occupational status: retired Cognitive needs: Yes (cane) Hearing needs: Yes Vision needs: Yes Questionnaire Thrive Questionnaire Date Thrive assessed: 06/05/23 ZARA-7 AMB Questionnaire ZARA-7 Date ZARA - 7 assessed: 06/05/23 Source: Developed by Drs. Veto Cm, Fransisca Parra, Fabrice Gómez and colleagues, with an educational jua nm from [email or web address]. Physical exam (Primary Care) Vital Signs: Last Vital Signs Pulse 60 06/05/23 13:32 BP 132/68 06/05/23 13:32 Pulse Ox 96 06/05/23 13:32 Oxygen Delivery Method Room Air 06/05/23 13:32 BMI result Body Mass Index 28.5 Tobacco/Smoking Status: Tobacco use Status Tobacco use date assessed 06/05/23 06/05/23 13:35 Patient Tobacco Use Status Former Tobacco user 06/05/23 13:35 Tobacco use type Cigarette 06/05/23 13:35 e-Cigarette/Vaping Use Never Used 06/05/23 13:35 Thrive Assessment: Date of Thrive Assessment Date Thrive assessed 06/05/23 06/05/23 13:35 Const General: alert; No acute distress Eyes Conjunctivae: conjunctivae normal Resp Auscultation: clear to auscultation bilaterally Cardio Rate: regular rate Rhythm: regular rhythm GI Inspection: Yes normal to inspection Extrem General: Yes normal to inspection and No edema Assessment and Plan Assessment & Plan (1) Impaired glucose tolerance: Comment: discussed about diet and exercise Code(s): R73.02 - Impaired glucose tolerance (oral) Plan: Decrease the amount of carbohydrate intake, pasta, bread, rice and potatoes are all sugar and that is aside from all the sweet stuff, remember that fruits are good but they are Sweet also last hemoglobin A1c was 6.1. (2) Hyperlipidemia: Code(s): E78.5 - Hyperlipidemia, unspecified Qualifiers: Hyperlipidemia type: mixed hyperlipidemia Qualified Code(s): E78.2 - Mixed hyperlipidemia Plan: Avoid fried foods, chicken skin, eggs, butter margarine, pastries and meat. Be it pork or beef they have a lot of cholesterol LDL goal of less than 70 and triglyceride of less than 150. Patient on rosuvastatin 20 mg once a day (3) Hypertension: Code(s): I10 - Essential (primary) hypertension Qualifiers: Hypertension type: essential hypertension Qualified Code(s): I10 - Essential (primary) hypertension Plan: Continue with blood pressure medication. Decrease salt intake and exercise atenolol chlorthalidone once a day (4) GERD (gastroesophageal reflux disease): Comment: Well controlled Code(s): K21.9 - Gastro-esophageal reflux disease without esophagitis Qualifiers: Esophagitis presence: without esophagitis Qualified Code(s): K21.9 - Gastro-esophageal reflux disease without esophagitis Plan: Avoid the foods that causes that usually spicy foods, tomato products, juices, coffee, soda and foods that your sensitive to. After eating do not lie down, allow 3-4 hours before in lie down. And keep the head of bed above 30 degrees to avoid the acid from going up. (5) Lumbar spondylosis: Comment: [facility] pain 2010 Code(s): M47.816 - Spondylosis without myelopathy or radiculopathy, lumbar region Plan: Narcotic pain meds: Is being prescribed with the understanding that these medications are potentially addictive and should be used only when absolutely necessary and must always be secured. Any remaining pills should be safely disposed off appropriately. Patient is advised that narcotics can impaired judgment and one should not drive or operate heavy machinery while taking these medications. Never share these medications with anybody and do not leave them unattended. They will not be replaced under any circumstances. (6) Generalized anxiety disorder: Comment: Declined referral for counseling Code(s): F41.1 - Generalized anxiety disorder Plan: decline med of now Orders: Orders Comprehensive Met. Panel 3 Months R73.02 - Impaired glucose tolerance (oral) Lipid Panel 3 Months E78.00 - Pure hypercholesterolemia, unspecified, I25.10 - Atherosclerotic heart disease of [place] coronary artery without angina pectoris Hemoglobin A1c 3 Months R73.02 - Impaired glucose tolerance (oral) Coding Level of Care Code Est Pt Level 4 (59827) Diagnoses Impaired glucose tolerance R73.02 Mixed hyperlipidemia E78.2 Hyperlipidemia type: mixed hyperlipidemia Essential hypertension I10 Hypertension type: essential hypertension Gastroesophageal reflux disease without esophagitis K21.9 Esophagitis presence: without esophagitis Lumbar spondylosis M47.816 Generalized anxiety disorder F41.1
== END 2023-06-05 13:51 | disposition home or self-care (01) ==
PROVIDERS: PCP Internal Medicine; Visit Provider Internal Medicine
DX: R73.02 Impaired glucose tolerance (oral) (principal); E78.2 Mixed hyperlipidemia; I10 Essential (primary) hypertension; K21.9 Gastro-esophageal reflux disease without esophagitis; M47.816 Spondylosis without myelopathy or radiculopathy, lumbar region; F41.1 Generalized anxiety disorder
CPT/HCPCS: 99214

== ENCOUNTER 2023-07-11 11:07 | Outpatient (REF) | payer MEDICARE, SELFPAY ==
[2023-07-11 14:04] LABS: Estimated Average Glucose 131 mg/dL; Hemoglobin A1c % 6.2 % (<6.0)
[2023-07-11 14:30] LABS: Alanine Aminotransferase 18 U/L (0-40); Albumin Level 4.3 g/dL (3.5-5.0); Alkaline Phosphatase 80 U/L (39-117); Anion Gap 13 (12-20); Aspartate Amino Transferase 20 U/L (5-37); Bilirubin Total 0.5 mg/dL (0.0-1.0); Blood Urea Nitrogen 22 mg/dL (9-16); Calcium 9.9 mg/dL (8.4-10.2); Carbon Dioxide 31 mmol/L (22-29); Chloride 99 mmol/L (96-108); Cholesterol 235 mg/dL (<200); Estimated Glomerular Filt Rate 60; Glucose Random 127 mg/dL (60-115); HDL Cholesterol 39 mg/dL (>40); LDL Cholesterol Calculated 161 mg/dL (<100); Potassium 3.5 mmol/L (3.3-5.1); Sodium 139 mmol/L (135-145); Total Protein 7.1 g/dL (6.5-8.0); Triglycerides 179 mg/dL (<150)
== END 2023-07-11 11:08 | disposition home or self-care (01) ==
LOC: HO.LAB 11:07
PROVIDERS: PCP Internal Medicine; Visit Provider Internal Medicine
DX: R73.02 Impaired glucose tolerance (oral) (principal); E78.00 Pure hypercholesterolemia, unspecified; I25.10 Atherosclerotic heart disease of native coronary artery without angina pectoris
CPT/HCPCS: 36415; 80053; 80061; 83036

== ENCOUNTER 2023-09-11 13:11 | Outpatient (AMB) | payer MEDICARE, SELFPAY ==
[2023-09-11 13:16] VITALS: BP 122/70; PULSE 64; O2SAT 94; BMI 27.4
--- NOTE | 2023-09-11 13:16 | MHC.PC.OV ---
Vital Signs 09/11/23 13:16 Height 5 ft 7 in Weight 175 lb BMI 27.4 BP 122/70 Blood Pressure Location Lt brachial Position Sitting Pulse 64 Pulse Source Pulse Oximeter Pulse Oximetry (%) 94 Oxygen Delivery Method Room Air Intake Visit Reasons: ZARA, HTN, CHOL Allergies No Known Allergies Allergy (Verified 09/11/23 13:17) Tobacco use date assessed: 06/05/23 Fall risk assessment: No Falls in past year Last assessed Fall Risk: 09/11/23 Dental Screening Dental Screen Date: 06/05/23 HPI ZARA, HTN, CHOL HPI Details 82-year-old overweight male(noted weight loss) 7 lb with impaired glucose tolerance hypercholesterolemia hypertension GERD generalized anxiety disorder and lumbar spondylosis on narcotic pain medication being seen every 3 months. May 2023 last seen has declined colonoscopy [facility] Medical History (Updated 09/11/23 @ 13:45 by Estella Gross MD) Colonoscopy refused Colon cancer screening Scoliosis SOBOE (shortness of breath on exertion) CKD (chronic kidney disease) stage 3, GFR 30-59 ml/min Hypertension GERD (gastroesophageal reflux disease) Lumbar spondylosis Hyperlipidemia Impaired glucose tolerance Overweight (BMI 25.0-29.9) Surgical History H/O tooth extraction History of removal of nevus History of arthroscopy of left knee History of appendectomy Family History Father No problems noted. Mother No problems noted. Brother Prostate cancer Son Colon cancer History of cancer chemotherapy Social History Household Members: Spouse and Family Housing: House Alcohol intake: never Patient Tobacco Use Status: Former Tobacco user Quit Date: 1969 Tobacco use type: Cigarette e-Cigarette/Vaping Use: Never Used Second Hand Smoke Exposure: No Advance Directives Date on File: 10/12/21 service: No Current occupational status: retired Cognitive needs: Yes (cane) Hearing needs: Yes Vision needs: Yes Questionnaire Thrive Questionnaire Date Thrive assessed: 06/05/23 AUDIT C Alcohol Use Questionnaire (AUDIT-C) 1. How often do you have a drink containing alcohol?: Never 2. How many drinks containing alcohol do you have on a typical day when you are drinking?: 1 or 2 3. How often do you have six or more drinks on one occasion?: Never Total Score: 0 ZARA-7 AMB Questionnaire ZARA-7 Date ZARA - 7 assessed: 06/05/23 Source: Developed by Drs. Veto Cm, Fransisca Parra, Fabrice Gómez and colleagues, with an educational juan m from [employer]. Physical exam (Primary Care) Vital Signs: Last Vital Signs Pulse 64 09/11/23 13:16 BP 122/70 09/11/23 13:16 Pulse Ox 94 09/11/23 13:16 Oxygen Delivery Method Room Air 09/11/23 13:16 BMI result Body Mass Index 27.4 Tobacco/Smoking Status: Tobacco use Status Tobacco use date assessed 06/05/23 09/11/23 13:20 Patient Tobacco Use Status Former Tobacco user 09/11/23 13:20 Tobacco use type Cigarette 09/11/23 13:20 e-Cigarette/Vaping Use Never Used 09/11/23 13:20 Thrive Assessment: Date of Thrive Assessment Date Thrive assessed 06/05/23 09/11/23 13:20 Const General: alert; No acute distress Eyes Conjunctivae: conjunctivae normal Resp Auscultation: clear to auscultation bilaterally Cardio Rate: regular rate Rhythm: regular rhythm GI Inspection: Yes normal to inspection Extrem General: Yes normal to inspection and No edema Assessment and Plan Assessment & Plan (1) Coronary artery disease: Code(s): I25.10 - Atherosclerotic heart disease of [place] coronary artery without angina pectoris Plan: Control the cholesterol, weight, blood pressure, diabetes presently on aspirin 81 mg once a day (2) Hypertension: Code(s): I10 - Essential (primary) hypertension Qualifiers: Hypertension type: essential hypertension Qualified Code(s): I10 - Essential (primary) hypertension Plan: Continue with blood pressure medication. Decrease salt intake and exercise takes lisinopril 5 mg once a day and atenolol chlorthalidone 100/25 once a day (3) GERD (gastroesophageal reflux disease): Comment: Well controlled Code(s): K21.9 - Gastro-esophageal reflux disease without esophagitis Qualifiers: Esophagitis presence: without esophagitis Qualified Code(s): K21.9 - Gastro-esophageal reflux disease without esophagitis Plan: Avoid the foods that causes that usually spicy foods, tomato products, juices, coffee, soda and foods that your sensitive to. After eating do not lie down, allow 3-4 hours before in lie down. And keep the head of bed above 30 degrees to avoid the acid from going up. (4) Lumbar spondylosis: Comment: [facility] pain 2009 Code(s): M47.816 - Spondylosis without myelopathy or radiculopathy, lumbar region Plan: Narcotic pain meds: Is being prescribed with the understanding that these medications are potentially addictive and should be used only when absolutely necessary and must always be secured. Any remaining pills should be safely disposed off appropriately. Patient is advised that narcotics can impaired judgment and one should not drive or operate heavy machinery while taking these medications. Never share these medications with anybody and do not leave them unattended. They will not be replaced under any circumstances. (5) Hyperlipidemia: Code(s): E78.5 - Hyperlipidemia, unspecified Qualifiers: Hyperlipidemia type: mixed hyperlipidemia Qualified Code(s): E78.2 - Mixed hyperlipidemia Plan: Avoid fried foods, chicken skin, eggs, butter margarine, pastries and meat. Be it pork or beef they have a lot of cholesterol presently on rosuvastatin 20 mg once a day LDL goal of less than 70 and triglyceride of less than 150 decline additional med/. stats just started crestor 3 weeks ago (6) Impaired glucose tolerance: Comment: discussed about diet and exercise Code(s): R73.02 - Impaired glucose tolerance (oral) Plan: Decrease the amount of carbohydrate intake, pasta, bread, rice and potatoes are all sugar and that is aside from all the sweet stuff, remember that fruits are good but they are Sweet also. (7) Type 2 diabetes mellitus with hyperglycemia: Code(s): E11.65 - Type 2 diabetes mellitus with hyperglycemia Plan: discussed about eating healthy. Orders: Orders Lipid Panel 3 Months E78.00 - Pure hypercholesterolemia, unspecified, E78.2 - Mixed hyperlipidemia Comprehensive Met. Panel 3 Months E78.2 - Mixed hyperlipidemia Hemoglobin A1c 3 Months E78.2 - Mixed hyperlipidemia Complete Blood Count Auto Diff 3 Months E78.2 - Mixed hyperlipidemia Coding Level of Care Code Est Pt Level 4 (38236) Diagnoses Coronary artery disease I25.10 Essential hypertension I10 Hypertension type: essential hypertension Gastroesophageal reflux disease without esophagitis K21.9 Esophagitis presence: without esophagitis Lumbar spondylosis M47.816 Mixed hyperlipidemia E78.2 Hyperlipidemia type: mixed hyperlipidemia Impaired glucose tolerance R73.02 Type 2 diabetes mellitus with hyperglycemia E11.65
== END 2023-09-11 13:56 | disposition home or self-care (01) ==
PROVIDERS: PCP Internal Medicine; Visit Provider Internal Medicine
DX: I25.10 Atherosclerotic heart disease of native coronary artery without angina pectoris (principal); I10 Essential (primary) hypertension; K21.9 Gastro-esophageal reflux disease without esophagitis; E11.65 Type 2 diabetes mellitus with hyperglycemia; M47.816 Spondylosis without myelopathy or radiculopathy, lumbar region; E78.2 Mixed hyperlipidemia; R73.02 Impaired glucose tolerance (oral)
CPT/HCPCS: 99214

== ENCOUNTER 2024-01-22 14:47 | Outpatient (AMB) | payer MEDICARE, SELFPAY ==
[2024-01-22 14:51] VITALS: BP 136/72; PULSE 76; O2SAT 94; BMI 27.4
--- NOTE | 2024-01-22 14:51 | MHC.PC.OV ---
Vital Signs 01/22/24 14:51 Height 5 ft 7 in Weight 175 lb BMI 27.4 BP 136/72 Blood Pressure Location Lt brachial Position Sitting Pulse 76 Pulse Source Pulse Oximeter Pulse Oximetry (%) 94 Oxygen Delivery Method Room Air Intake Visit Reasons: Hypercholesterolemia Intake Note: Patient refused A1C, he stated he does not have diabetes. 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 Last seen in 09/11/2023. Cholesterol last tested in July and was advised to repeat testing [facility] Medical History (Updated 01/22/24 @ 15:14 by Estella Gross MD) Impaired glucose tolerance Palpitations Non-ST elevation NV (NSTEMI) Positive colorectal cancer screening using Cologuard test Colonoscopy refused Colon cancer screening Scoliosis SOBOE (shortness of breath on exertion) CKD (chronic kidney disease) stage 3, GFR 30-59 ml/min Hypertension GERD (gastroesophageal reflux disease) Lumbar spondylosis Hyperlipidemia Overweight (BMI 25.0-29.9) Surgical History H/O tooth extraction History of removal of nevus History of arthroscopy of left knee History of appendectomy Family History Father No problems noted. Mother No problems noted. Brother Prostate cancer Son Colon cancer History of cancer chemotherapy Social History Household Members: Spouse and Family Housing: House Alcohol intake: never Patient Tobacco Use Status: Former Tobacco user Tobacco use type: Cigarette e-Cigarette/Vaping Use: Never Used Second Hand Smoke Exposure: No Advance Directives Date on File: 10/12/21 service: No Current occupational status: retired Cognitive needs: Yes (cane) Hearing needs: Yes Vision needs: Yes Questionnaire PHQ-9 Over the last 2 weeks, how often have you been bothered by any of the following problems? 1. Little interest or pleasure in doing things: nearly every day 2. Feeling down, depressed, or hopeless: nearly every day 3. Trouble falling or staying asleep, or sleeping too much: not at all 4. Feeling tired or having little energy: not at all 5. Poor appetite or overeating: not at all 6. Feeling bad about yourself - or that you are a failure or have let yourself or your family down: not at all 7. Trouble concentrating on things, such as reading the newspaper or watching television: not at all 8. Moving or speaking so slowly that other people could have noticed. Or the opposite - being so fidgety or restless that you have been moving around a lot more than usual: not at all 9. Thoughts that you would be better off or of hurting yourself in some way: not at all Total score: 6 Depression Screening Interpretation: Positive Depression Screening Done: Yes Source: Developed by Drs. Veto Cm, Fabrice Trent and colleagues, with an educational juan m from [employer]. Thrive Questionnaire Date Thrive assessed: 06/05/23 AUDIT C Alcohol Use Questionnaire (AUDIT-C) 1. How often do you have a drink containing alcohol?: Never 2. How many drinks containing alcohol do you have on a typical day when you are drinking?: 1 or 2 3. How often do you have six or more drinks on one occasion?: Never Total Score: 0 ZARA-7 AMB Questionnaire ZARA-7 Date ZARA - 7 assessed: 06/05/23 Source: Developed by Drs. Veto Cm, Fabrice Trent and colleagues, with an educational juan m from [employer]. Physical exam (Primary Care) Vital Signs: Last Vital Signs Pulse 76 01/22/24 14:51 BP 136/72 01/22/24 14:51 Pulse Ox 94 01/22/24 14:51 Oxygen Delivery Method Room Air 01/22/24 14:51 BMI result Body Mass Index 27.4 Tobacco/Smoking Status: Tobacco use Status Tobacco use date assessed 06/05/23 01/22/24 14:53 Patient Tobacco Use Status Former Tobacco user 01/22/24 14:53 Tobacco use type Cigarette 09/17/24 14:53 e-Cigarette/Vaping Use Never Used 01/22/24 14:53 PHQ-9: PHQ-9 Score PHQ-9: Total score 6 01/22/24 14:58 Depression Screening Interpretation: Positive Thrive Assessment: Date of Thrive Assessment Date Thrive assessed 06/05/23 01/22/24 14:53 Const General: alert; No acute distress Eyes Conjunctivae: conjunctivae normal Resp Auscultation: clear to auscultation bilaterally Cardio Rate: regular rate Rhythm: regular rhythm GI Inspection: Yes normal to inspection Extrem General: Yes normal to inspection and No edema Assessment and Plan Assessment & Plan (1) Type 2 diabetes mellitus with hyperglycemia: Code(s): E11.65 - Type 2 diabetes mellitus with hyperglycemia Plan: Decrease the amount of carbohydrate intake, pasta, bread, rice and potatoes are all sugar and that is aside from all the sweet stuff, remember that fruits are good but they are Sweet also. Hemoglobin A1c goal of less than 7.0 diet control (2) Coronary artery disease: Code(s): I25.10 - Atherosclerotic heart disease of [place] coronary artery without angina pectoris Plan: Control the cholesterol, weight, blood pressure, diabetes on aspirin 81 mg once a day advised to get blood work (3) CKD (chronic kidney disease) stage 3, GFR 30-59 ml/min: Code(s): N18.30 - Chronic kidney disease, stage 3 unspecified Qualifiers: Chronic kidney disease stage 3 subtype: stage 3a (GFR 45-59) Qualified Code(s): N18.31 - Chronic kidney disease, stage 3a Plan: Keep well hydrated, avoid NSAIDs advised blood work (4) Hypertension: Code(s): I10 - Essential (primary) hypertension Qualifiers: Hypertension type: essential hypertension Qualified Code(s): I10 - Essential (primary) hypertension Plan: Continue with blood pressure medication. Decrease salt intake and exercise patient on atenolol chlorthalidone and lisinopril. Blood work requested (5) GERD (gastroesophageal reflux disease): Comment: Well controlled Code(s): K21.9 - Gastro-esophageal reflux disease without esophagitis Qualifiers: Esophagitis presence: without esophagitis Qualified Code(s): K21.9 - Gastro-esophageal reflux disease without esophagitis Plan: Avoid the foods that causes that usually spicy foods, tomato products, juices, coffee, soda and foods that your sensitive to. After eating do not lie down, allow 3-4 hours before in lie down. And keep the head of bed above 30 degrees to avoid the acid from going up. (6) Hyperlipidemia: Code(s): E78.5 - Hyperlipidemia, unspecified Qualifiers: Hyperlipidemia type: mixed hyperlipidemia Qualified Code(s): E78.2 - Mixed hyperlipidemia Plan: Avoid fried foods, chicken skin, eggs, butter margarine, pastries and meat. Be it pork or beef they have a lot of cholesterol LDL goal of less than 70 and triglyceride of less than 150. Patient has been placed on rosuvastatin for an 20 mg once (7) Lumbar spondylosis: Comment: [facility] pain 2010 Code(s): M47.816 - Spondylosis without myelopathy or radiculopathy, lumbar region Plan: Narcotic pain meds: Is being prescribed with the understanding that these medications are potentially addictive and should be used only when absolutely necessary and must always be secured. Any remaining pills should be safely disposed off appropriately. Patient is advised that narcotics can impaired judgment and one should not drive or operate heavy machinery while taking these medications. Never share these medications with anybody and do not leave them unattended. They will not be replaced under any circumstances. (8) Generalized anxiety disorder: Comment: Declined referral for counseling Code(s): F41.1 - Generalized anxiety disorder Plan: decline med for now. Medications: Changed From Belbuca (buprenorphine HCl) 600 mcg buccal Q12H 60 ea 0RF NS To buprenorphine HCl 600 mcg buccal Q12H 60 ea 0RF Coding Level of Care Code Est Pt Level 4 (61435) Complex EM visit Add On G2211 Diagnoses Type 2 diabetes mellitus with hyperglycemia E11.65 Coronary artery disease I25.10 Stage 3a chronic kidney disease N18.31 Chronic kidney disease stage 3 subtype: stage 3a (GFR 45-59) Essential hypertension I10 Hypertension type: essential hypertension Gastroesophageal reflux disease without esophagitis K21.9 Esophagitis presence: without esophagitis Mixed hyperlipidemia E78.2 Hyperlipidemia type: mixed hyperlipidemia Lumbar spondylosis M47.816 Generalized anxiety disorder F41.1
== END 2024-01-22 15:29 | disposition home or self-care (01) ==
PROVIDERS: PCP Internal Medicine; Visit Provider Internal Medicine
DX: E11.65 Type 2 diabetes mellitus with hyperglycemia (principal); I25.10 Atherosclerotic heart disease of native coronary artery without angina pectoris; N18.31 Chronic kidney disease, stage 3a; I10 Essential (primary) hypertension; K21.9 Gastro-esophageal reflux disease without esophagitis; E78.2 Mixed hyperlipidemia; M47.816 Spondylosis without myelopathy or radiculopathy, lumbar region; F41.1 Generalized anxiety disorder

== ENCOUNTER → 2024-01-22 14:47 | Outpatient (BNVA) | payer MEDICARE, SELFPAY | PROVIDERS: PCP Internal Medicine; Visit Provider Internal Medicine | DX: E11.65 Type 2 diabetes mellitus with hyperglycemia (principal); I25.10 Atherosclerotic heart disease of native coronary artery without angina pectoris; I12.9 Hypertensive chronic kidney disease with stage 1 through stage 4 chronic kidney disease, or unspecified chronic kidney disease; E11.22 Type 2 diabetes mellitus with diabetic chronic kidney disease; N18.31 Chronic kidney disease, stage 3a; K21.9 Gastro-esophageal reflux disease without esophagitis; E78.2 Mixed hyperlipidemia; M47.816 Spondylosis without myelopathy or radiculopathy, lumbar region; F41.1 Generalized anxiety disorder | CPT/HCPCS: 99212 ==

== ENCOUNTER 2024-01-23 13:10 | Outpatient (REF) | payer MEDICARE, SELFPAY ==
[2024-01-23 13:25] LABS: MANUAL DIFF FLAG NO
[2024-01-23 14:08] LABS: Basophils Percent Auto 0.6 % (0-2); Eosinophils Absolute Auto 0.1 X10*3/uL (0.0-0.4); Eosinophils Percent Auto 1.9 % (0-4); Hematocrit 43.3 % (42.0-52.0); Hemoglobin 14.9 g/dl (14.0-18.0); Imm Gran Abs Auto 0.01 X10*3/uL (0.00-0.03); Imm Gran Pct Auto 0.1 % (0.0-0.4); Lymphocytes Absolute Auto 1.5 X10*3/uL (1.2-4.9); Lymphocytes Percent Auto 21.5 % (20-40); Mean Corpuscular HGB Conc 34.4 g/dl (31.0-36.0); Mean Corpuscular Hemoglobin 30.6 pg (27.0-33.0); Mean Corpuscular Volume 88.9 fL (80.0-98.0); Mean Platelet Volume 10.9 fL (9.4-12.4); Monocytes Absolute Auto 0.6 X10*3/uL (0.1-1.2); Monocytes Percent Auto 9.1 % (2-11); Neutrophils Absolute Auto 4.5 x10*3/uL (2.0-8.3); Neutrophils Percent Auto 66.8 % (45-73); Platelet Count 197 X10*3/uL (160-400); Red Blood Count 4.87 X10*6/uL (4.60-5.80); Red Cell Distribution Width 12.9 % (11.0-16.0); White Blood Count 6.8 X10*3/uL (4.8-10.8)
[2024-01-23 14:16] LABS: Estimated Average Glucose 143 mg/dL; Hemoglobin A1c % 6.6 % (<6.0); Total Hemoglobin (HGBA1C) 3733.4211 umol/L
[2024-01-23 15:16] LABS: Alanine Aminotransferase 19 U/L (0-40); Albumin Level 4.2 g/dL (3.5-5.0); Alkaline Phosphatase 74 U/L (39-117); Anion Gap 13 (12-20); Aspartate Amino Transferase 23 U/L (5-37); Bilirubin Total 0.7 mg/dL (0.0-1.0); Blood Urea Nitrogen 16 mg/dL (9-16); Calcium 9.9 mg/dL (8.4-10.2); Carbon Dioxide 29 mmol/L (22-29); Chloride 100 mmol/L (96-108); Cholesterol 124 mg/dL (<200); Estimated Glomerular Filt Rate > 60; Glucose Random 136 mg/dL (60-115); HDL Cholesterol 43 mg/dL (>40); LDL Cholesterol Calculated 61 mg/dL (<100); Potassium 3.7 mmol/L (3.3-5.1); Sodium 138 mmol/L (135-145); Total Protein 7.1 g/dL (6.5-8.0); Triglycerides 101 mg/dL (<150)
== END 2024-01-23 13:11 | disposition home or self-care (01) ==
LOC: HO.LAB 13:10
PROVIDERS: PCP Internal Medicine; Visit Provider Internal Medicine
DX: R73.02 Impaired glucose tolerance (oral) (principal); I25.10 Atherosclerotic heart disease of native coronary artery without angina pectoris; E78.2 Mixed hyperlipidemia; E78.00 Pure hypercholesterolemia, unspecified
CPT/HCPCS: 36415; 80053; 80061; 83036; 85025

== ENCOUNTER 2024-05-22 15:57 | Outpatient (AMB) | payer MEDICARE, SELFPAY ==
--- NOTE | 2024-05-22 16:05 | A.OFFPC_ITS ---
Vital Signs 05/22/24 16:06 Height 5 ft 7 in Weight 171 lb BMI 26.8 BP 134/78 Blood Pressure Location Lt brachial Position Sitting Pulse 69 Pulse Source Pulse Oximeter Pulse Oximetry (%) 98 Oxygen Delivery Method Room Air Intake Visit Reasons: Lumbar spondylosis Intake Note: Patient here for a follow up lumbar spondylosis Contamination Consultant Required: No Accompanied by: Self / Same As Patient Allergies No Known Allergies Allergy (Verified 05/22/24 16:09) Tobacco use date assessed: 05/22/24 Fall risk assessment: No Falls in past year Last assessed Fall Risk: 05/22/24 Dental Screening Dental Screen Date: 05/22/24 Did you have a dental visit in the last 12 months?: No Did you have a dental problem in the last 6 months where you did not have access to dental care?: No Was dental information given to patient?: Patient declined HPI Lumbar spondylosis HPI Details The patient is an 83-year-old male presenting with an annual wellness evaluation and management of existing chronic conditions. The patient has a history of type 2 diabetes mellitus, with a recent hemoglobin A1c of 6.6, denoting adequate control, although it has increased slightly. The patient?s l ipid profile shows a significant reduction in LDL cholesterol levels, with the current reading at 61 mg/dL. The patient is compliant with prescribed medications, though reports difficulty affording test strips for glucose monitoring. Hypertension remains well-controlled, and blood pressure readings have been stable. Other chronic conditions include a cataract in one eye and a tear duct obstruction, for which the patient expresses apprehension about surgery. The patient also manages chronic back pain, worsened by activity and contributing to depressive symptoms. The patient uses a back support, which provides symptomatic relief but is aware that it does not improve spinal integrity. There is a noted weight loss of five pounds since the last visit, attributed to reduced appetite and a decrease in home-cooked meals by the spouse, who is reportedly experiencing aging-related health concerns. The patient has received a flu vaccination but remains cautious about potential exposure to respiratory illnesses. [facility] Medical History Impaired glucose tolerance Palpitations Non-ST elevation [place] (NSTEMI) Positive colorectal cancer screening using Cologuard test Colonoscopy refused Colon cancer screening Scoliosis SOBOE (shortness of breath on exertion) CKD (chronic kidney disease) stage 3, GFR 30-59 ml/min Hypertension GERD (gastroesophageal reflux disease) Lumbar spondylosis Hyperlipidemia Overweight (BMI 25.0-29.9) Surgical History H/O tooth extraction History of removal of nevus History of arthroscopy of left knee History of appendectomy Family History Father No problems noted. Mother No problems noted. Brother Prostate cancer Son Colon cancer History of cancer chemotherapy Social History Household Members: Spouse and Family Housing: House Alcohol intake: never Patient Tobacco Use Status: Former Tobacco user Tobacco use type: Cigarette e-Cigarette/Vaping Use: Never Used Second Hand Smoke Exposure: No Advance Directives Date on File: 10/12/21 service: No Current occupational status: retired Cognitive needs: Yes (cane) Hearing needs: Yes Vision needs: Yes Questionnaire PHQ-9 Over the last 2 weeks, how often have you been bothered by any of the following problems? 1. Little interest or pleasure in doing things: not at all 2. Feeling down, depressed, or hopeless: several days 3. Trouble falling or staying asleep, or sleeping too much: not at all 4. Feeling tired or having little energy: not at all 5. Poor appetite or overeating: not at all 6. Feeling bad about yourself - or that you are a failure or have let yourself or your family down: not at all 7. Trouble concentrating on things, such as reading the newspaper or watching television: not at all 8. Moving or speaking so slowly that other people could have noticed. Or the opposite - being so fidgety or restless that you have been moving around a lot more than usual: not at all 9. Thoughts that you would be better off or of hurting yourself in some way: not at all Total score: 1 Source: Developed by Drs. Veto Cm, Fransisca Parra, Fabrice Gómez and colleagues, with an educational juan m from [employer]. Thrive Questionnaire Date Thrive assessed: 05/22/24 I am a: Patient What is your living situation today?: I have a steady place to live Within the past 12 months, did the food you bought not last and you didn't have the money to get more?: Never true Within the past 12 months, did you worry whether your food would run out before you got money to buy more?: Never true Do you have trouble paying for medicines?: No Do you have trouble getting transportation to medical appointments?: No Do you have trouble paying your heating and electricity bill?: No Do you have trouble taking care of your child, family member or friend?: No Do you have trouble with day-to-day activities such as bathing, preparing meals, shopping, managing finances, etc.?: No Are you currently unemployed and looking for a job?: No Are you interested in more education?: No Please select the resources that you would like help with: None Currently or been in a relationship where the following occur: No concerns reported THRIVE Score: 0 AUDIT C Alcohol Use Questionnaire (AUDIT-C) 1. How often do you have a drink containing alcohol?: Never Total Score: 0 ZARA-7 AMB Questionnaire ZARA-7 Date ZARA - 7 assessed: 05/22/24 Feeling nervous, anxious, or on edge: 0 = Not at all Not being able to stop or control worryin = Not at all Worrying too much about different things: 0 = Not at all Trouble relaxin = Not at all Being so restless that it is hard to sit still: 0 = Not at all Becoming easily annoyed or irritable: 0 = Not at all Feeling afraid as if something awful might happen: 0 = Not at all Total ZARA-7 score (0-4 normal; 5-9 mild; 10-14 moderate; 15-21 severe): 0 Source: Developed by Drs. Veto Cm, Fransisca Parra, Fabrice Gómez and colleagues, with an educational juan m from [employer]. Physical exam (Primary Care) Vital Signs: Last Vital Signs Pulse 69 05/22/24 16:06 BP 134/78 05/22/24 16:06 Pulse Ox 98 05/22/24 16:06 Oxygen Delivery Method Room Air 05/22/24 16:06 BMI result Body Mass Index 26.8 Tobacco/Smoking Status: Tobacco use Status Tobacco use date assessed 05/22/24 05/22/24 16:11 Patient Tobacco Use Status Former Tobacco user 05/22/24 16:07 Tobacco use type Cigarette 05/22/24 16:07 e-Cigarette/Vaping Use Never Used 05/22/24 16:07 PHQ-9: PHQ-9 Score PHQ-9: Total score 1 05/22/24 16:07 Thrive Assessment: Date of Thrive Assessment Date Thrive assessed 05/22/24 05/22/24 16:07 Currently or been in a relationship where the following occur: No concerns reported Const General: alert; No acute distress Eyes Conjunctivae: conjunctivae normal Resp Auscultation: clear to auscultation bilaterally Cardio Rate: regular rate Rhythm: regular rhythm GI Inspection: Yes normal to inspection Extrem General: Yes normal to inspection and No edema Coding Level of Care Code Est Pt Level 4 (57490) Complex EM visit Add On G2211 Diagnoses Type 2 diabetes mellitus with hyperglycemia E11.65 Coronary artery disease I25.10 Stage 3a chronic kidney disease N18.31 Chronic kidney disease stage 3 subtype: stage 3a (GFR 45-59) Essential hypertension I10 Hypertension type: essential hypertension Gastroesophageal reflux disease without esophagitis K21.9 Esophagitis presence: without esophagitis Lumbar spondylosis M47.816 Mixed hyperlipidemia E78.2 Hyperlipidemia type: mixed hyperlipidemia Assessment & Plan Assessment & Plan (1) Type 2 diabetes mellitus with hyperglycemia: Code(s): E11.65 - Type 2 diabetes mellitus with hyperglycemia Category: Medical Plan: Decrease the amount of carbohydrate intake, pasta, bread, rice and potatoes are all sugar and that is aside from all the sweet stuff, remember that fruits are good but they are Sweet also. Hemoglobin A1c goal of less than 7.0. Patient is diet controlled. (2) Coronary artery disease: Code(s): I25.10 - Atherosclerotic heart disease of [place] coronary artery without angina pectoris Category: Medical Plan: Control the cholesterol, weight, blood pressure, diabetes on aspirin. (3) CKD (chronic kidney disease) stage 3, GFR 30-59 ml/min: Code(s): N18.30 - Chronic kidney disease, stage 3 unspecified Category: Medical Qualifiers: Chronic kidney disease stage 3 subtype: stage 3a (GFR 45-59) Qualified Code(s): N18.31 - Chronic kidney disease, stage 3a Plan: Keep well hydrated and avoid NSAIDs. (4) Hypertension: Code(s): I10 - Essential (primary) hypertension Category: Medical Qualifiers: Hypertension type: essential hypertension Qualified Code(s): I10 - Essential (primary) hypertension Plan: Continue with blood pressure medication. Decrease salt intake and exercise on atenolol/carpal chlorthalidone 100/25 mg once a day lisinopril 5 mg once a day (5) GERD (gastroesophageal reflux disease): Comment: Well controlled Code(s): K21.9 - Gastro-esophageal reflux disease without esophagitis Category: Medical Qualifiers: Esophagitis presence: without esophagitis Qualified Code(s): K21.9 - Gastro-esophageal reflux disease without esophagitis Plan: Avoid the foods that causes that usually spicy foods, tomato products, juices, coffee, soda and foods that your sensitive to. After eating do not lie down, allow 3-4 hours before in lie down. And keep the head of bed above 30 degrees to avoid the acid from going up. (6) Lumbar spondylosis: Comment: [facility] pain 2010 Code(s): M47.816 - Spondylosis without myelopathy or radiculopathy, lumbar region Category: Medical Plan: Narcotic pain meds: Is being prescribed with the understanding that these medications are potentially addictive and should be used only when absolutely necessary and must always be secured. Any remaining pills should be safely disposed off appropriately. Patient is advised that narcotics can impaired judgment and one should not drive or operate heavy machinery while taking these medications. Never share these medications with anybody and do not leave them unattended. They will not be replaced under any circumstances. (7) Hyperlipidemia: Code(s): E78.5 - Hyperlipidemia, unspecified Category: Medical Qualifiers: Hyperlipidemia type: mixed hyperlipidemia Qualified Code(s): E78.2 - Mixed hyperlipidemia Plan: Avoid fried foods, chicken skin, eggs, butter margarine, pastries and meat. Be it pork or beef they have a lot of cholesterol on Crestor 20 mg once a day Plan - Continue monitoring and management of type 2 diabetes mellitus, emphasizing regular monitoring of blood glucose levels and adherence to dietary recommendations. - Continue statin therapy to further manage hyperlipidemia, with emphasis on maintaining LDL levels below 70 mg/dL. - For the cataract and tear duct obstruction, patient was informed of the importance of regular ophthalmological evaluations and potential benefits of cataract surgery and tear duct flushing, respectively. - Maintain current antihypertensive regimen to ensure control of blood pressure. - Manage chronic back pain with current supportive measures, with consideration of adjunctive therapies if symptoms worsen. - Encourage routine flu vaccination and educate about precautions to avoid respiratory infections, including hand hygiene and avoidance of crowded places during high incidence periods.
[2024-05-22 16:06] VITALS: BP 134/78; PULSE 69; O2SAT 98; BMI 26.8
== END 2024-05-22 16:28 | disposition home or self-care (01) ==
LOC: HO.HMCH 15:57
PROVIDERS: PCP Internal Medicine; Visit Provider Internal Medicine
DX: E11.65 Type 2 diabetes mellitus with hyperglycemia (principal); I25.10 Atherosclerotic heart disease of native coronary artery without angina pectoris; N18.31 Chronic kidney disease, stage 3a; I10 Essential (primary) hypertension; K21.9 Gastro-esophageal reflux disease without esophagitis; M47.816 Spondylosis without myelopathy or radiculopathy, lumbar region; E78.2 Mixed hyperlipidemia

== ENCOUNTER → 2024-05-22 15:57 | Outpatient (BNVA) | payer MEDICARE, SELFPAY | PROVIDERS: PCP Internal Medicine; Visit Provider Internal Medicine | DX: E11.65 Type 2 diabetes mellitus with hyperglycemia (principal); I25.10 Atherosclerotic heart disease of native coronary artery without angina pectoris; I12.9 Hypertensive chronic kidney disease with stage 1 through stage 4 chronic kidney disease, or unspecified chronic kidney disease; E11.22 Type 2 diabetes mellitus with diabetic chronic kidney disease; N18.31 Chronic kidney disease, stage 3a; K21.9 Gastro-esophageal reflux disease without esophagitis; M47.816 Spondylosis without myelopathy or radiculopathy, lumbar region; E78.2 Mixed hyperlipidemia | CPT/HCPCS: 99212 ==

== ENCOUNTER 2024-08-18 11:54 | Outpatient (REF) | payer MEDICARE, SELFPAY | END 2024-08-18 11:55 | disposition home or self-care (01) | LOC: HO.LAB 11:54 | PROVIDERS: PCP Internal Medicine; Visit Provider Internal Medicine | DX: Z13.89 Encounter for screening for other disorder (principal) ==

== ENCOUNTER 2024-08-21 14:12 | Outpatient (AMB) | payer MEDICARE, SELFPAY ==
[2024-08-21 14:15] VITALS: BP 114/82; PULSE 74; O2SAT 95; BMI 27.1
--- NOTE | 2024-08-21 14:15 | MHC.PC.OV ---
Vital Signs 08/21/24 14:15 Height 5 ft 7 in Weight 173 lb BMI 27.1 BP 114/82 Blood Pressure Location Lt brachial Position Sitting Pulse 74 Pulse Source Pulse Oximeter Pulse Oximetry (%) 95 Oxygen Delivery Method Room Air Intake Visit Reasons: lumbar spondylosis Oxyacetylene Burner Required: No Accompanied by: Self / Same As Patient Allergies No Known Allergies Allergy (Verified 08/21/24 14:16) Tobacco use date assessed: 08/21/24 Fall risk assessment: No Falls in past year Last assessed Fall Risk: 08/21/24 Dental Screening Dental Screen Date: 08/21/24 Did you have a dental visit in the last 12 months?: No Did you have a dental problem in the last 6 months where you did not have access to dental care?: No Was dental information given to patient?: No [facility] Medical History Impaired glucose tolerance Palpitations Non-ST elevation [place] (NSTEMI) Positive colorectal cancer screening using Cologuard test Colonoscopy refused Colon cancer screening Scoliosis SOBOE (shortness of breath on exertion) CKD (chronic kidney disease) stage 3, GFR 30-59 ml/min Hypertension GERD (gastroesophageal reflux disease) Lumbar spondylosis Hyperlipidemia Overweight (BMI 25.0-29.9) Surgical History H/O tooth extraction History of removal of nevus History of arthroscopy of left knee History of appendectomy Family History Father No problems noted. Mother No problems noted. Brother Prostate cancer Son Colon cancer History of cancer chemotherapy Social History Household Members: Spouse and Family Housing: House Alcohol intake: never Patient Tobacco Use Status: Former Tobacco user Tobacco use type: Cigarette e-Cigarette/Vaping Use: Never Used Second Hand Smoke Exposure: No Advance Directives Date on File: 10/12/21 service: No Current occupational status: retired Current occupational exposures/hazards: No Cognitive needs: Yes (cane) Hearing needs: Yes Vision needs: Yes Questionnaire PHQ-9 Over the last 2 weeks, how often have you been bothered by any of the following problems? 1. Little interest or pleasure in doing things: not at all 2. Feeling down, depressed, or hopeless: several days 3. Trouble falling or staying asleep, or sleeping too much: not at all 4. Feeling tired or having little energy: not at all 5. Poor appetite or overeating: not at all 6. Feeling bad about yourself - or that you are a failure or have let yourself or your family down: not at all 7. Trouble concentrating on things, such as reading the newspaper or watching television: not at all 8. Moving or speaking so slowly that other people could have noticed. Or the opposite - being so fidgety or restless that you have been moving around a lot more than usual: not at all 9. Thoughts that you would be better off or of hurting yourself in some way: not at all Total score: 1 Source: Developed by Drs. Veto Cm, Fransisca Parra, Fabrice Gómez and colleagues, with an educational juan m from [employer]. Thrive Questionnaire Date Thrive assessed: 08/21/24 I am a: Patient What is your living situation today?: I have a steady place to live Within the past 12 months, did the food you bought not last and you didn't have the money to get more?: Never true Within the past 12 months, did you worry whether your food would run out before you got money to buy more?: Never true Do you have trouble paying for medicines?: No Do you have trouble getting transportation to medical appointments?: No Do you have trouble paying your heating and electricity bill?: No Do you have trouble taking care of your child, family member or friend?: No Do you have trouble with day-to-day activities such as bathing, preparing meals, shopping, managing finances, etc.?: No Are you currently unemployed and looking for a job?: No Are you interested in more education?: No Please select the resources that you would like help with: None Currently or been in a relationship where the following occur: No concerns reported THRIVE Score: 0 AUDIT C Alcohol Use Questionnaire (AUDIT-C) 1. How often do you have a drink containing alcohol?: Never 3. How often do you have six or more drinks on one occasion?: Never Total Score: 0 ZARA-7 AMB Questionnaire ZARA-7 Date ZARA - 7 assessed: 08/21/24 Feeling nervous, anxious, or on edge: 0 = Not at all Not being able to stop or control worryin = Not at all Worrying too much about different things: 0 = Not at all Trouble relaxin = Not at all Being so restless that it is hard to sit still: 0 = Not at all Becoming easily annoyed or irritable: 0 = Not at all Feeling afraid as if something awful might happen: 0 = Not at all Total ZARA-7 score (0-4 normal; 5-9 mild; 10-14 moderate; 15-21 severe): 0 Source: Developed by Drs. Veto Cm, Farnsisca Parra, Fabrice Gómez and colleagues, with an educational juan m from [employer]. Physical exam (Primary Care) Vital Signs: Last Vital Signs Pulse 74 08/21/24 14:15 BP 114/82 08/21/24 14:15 Pulse Ox 95 08/21/24 14:15 Oxygen Delivery Method Room Air 08/21/24 14:15 BMI result Body Mass Index 27.1 Tobacco/Smoking Status: Tobacco use Status Tobacco use date assessed 08/21/24 08/21/24 14:20 Patient Tobacco Use Status Former Tobacco user 08/21/24 14:20 Tobacco use type Cigarette 08/21/24 14:20 e-Cigarette/Vaping Use Never Used 08/21/24 14:20 PHQ-9: PHQ-9 Score PHQ-9: Total score 1 08/21/24 14:57 Thrive Assessment: Date of Thrive Assessment Date Thrive assessed 08/21/24 08/21/24 14:20 Currently or been in a relationship where the following occur: No concerns reported Const General: alert; No acute distress Eyes Conjunctivae: conjunctivae normal Resp Auscultation: clear to auscultation bilaterally Cardio Rate: regular rate Rhythm: regular rhythm GI Inspection: Yes normal to inspection Extrem General: Yes normal to inspection and No edema Coding Level of Care Code Est Pt Level 4 (35192) Diagnoses Type 2 diabetes mellitus with hyperglycemia E11.65 Essential hypertension I10 Hypertension type: essential hypertension Mixed hyperlipidemia E78.2 Hyperlipidemia type: mixed hyperlipidemia Gastroesophageal reflux disease without esophagitis K21.9 Esophagitis presence: without esophagitis Lumbar spondylosis M47.816 Assessment & Plan Assessment & Plan (1) Type 2 diabetes mellitus with hyperglycemia: Code(s): E11.65 - Type 2 diabetes mellitus with hyperglycemia Category: Medical Plan: This plan Decrease the amount of carbohydrate intake, pasta, bread, rice and potatoes are all sugar and that is aside from all the sweet stuff, remember that fruits are good but they are Sweet also. Hemoglobin A1c goal of less than 7.0 January last tested at goal and diet controlled (2) Hypertension: Code(s): I10 - Essential (primary) hypertension Category: Medical Qualifiers: Hypertension type: essential hypertension Qualified Code(s): I10 - Essential (primary) hypertension Plan: Continue with blood pressure medication. Decrease salt intake and exercise on atenolol chlorthalidone and lisinopril (3) Hyperlipidemia: Code(s): E78.5 - Hyperlipidemia, unspecified Category: Medical Qualifiers: Hyperlipidemia type: mixed hyperlipidemia Qualified Code(s): E78.2 - Mixed hyperlipidemia Plan: Avoid fried foods, chicken skin, eggs, butter margarine, pastries and meat. Be it pork or beef they have a lot of cholesterol on rosuvastatin 20 mg once a day (4) GERD (gastroesophageal reflux disease): Comment: Well controlled Code(s): K21.9 - Gastro-esophageal reflux disease without esophagitis Category: Medical Qualifiers: Esophagitis presence: without esophagitis Qualified Code(s): K21.9 - Gastro-esophageal reflux disease without esophagitis Plan: Avoid the foods that causes that usually spicy foods, tomato products, juices, coffee, soda and foods that your sensitive to. After eating do not lie down, allow 3-4 hours before in lie down. And keep the head of bed above 30 degrees to avoid the acid from going up. (5) Lumbar spondylosis: Comment: [facility] pain 2010 Code(s): M47.816 - Spondylosis without myelopathy or radiculopathy, lumbar region Category: Medical Plan: Narcotic pain meds: Is being prescribed with the understanding that these medications are potentially addictive and should be used only when absolutely necessary and must always be secured. Any remaining pills should be safely disposed off appropriately. Patient is advised that narcotics can impaired judgment and one should not drive or operate heavy machinery while taking these medications. Never share these medications with anybody and do not leave them unattended. They will not be replaced under any circumstances. Plan History of Present Illness The patient is an 83-year-old male presenting with a follow-up visit for chronic conditions management. He has lumbar spondylosis managed with narcotic pain medication, though he reports noted vertebral noise and persistent pain during exercise, contradicting expectations of reduced age-related pain sensitivity. His diabetes mellitus is well controlled, with recent labs showing a blood sugar of 136 mg/dL and an HbA1c of 6.6%, achieved primarily through diet. The patient's hypercholesterolemia appears well managed with an LDL cholesterol of 61 mg/dL. Chronic kidney disease is stable with no recent changes in function. The patient remains on atenolol, chlorthalidone, and lisinopril for hypertension management. He has generalized anxiety disorder without recent discussion on progression or management. Health Maintenance Social History - No current smoking, alcohol, or substance use discussed - Maintains a watchful dietary intake relating to diabetes and hypercholesterolemia control - Exercise mentioned, yet it is impacted by lumbar spondylosis discomfort Review of Systems - Musculoskeletal: Reports increasing noise and discomfort in vertebrae with exercise - Neurological: Reports tinnitus - Gastrointestinal: Reports bowel movements are off and on but regular daily Physical Exam Results - Labs: January blood sugar 136 mg/dL, Hemoglobin A1c 6.6%, LDL cholesterol 61 mg/dL - Electrolytes and kidney function are within normal limits Plan 1. 0%, supported by dietary changes. Hypercholesterolemia remains controlled under rosuvastatin, with desirable LDL levels achieved. The current antihypertensive medications atenolol, chlorthalidone, and lisinopril will be continued. The patient needs regular follow-up visits to monitor chronic conditions, especially considering kidney function and lumbar spondylosis-related discomfort. Efforts to manage pain without additional narcotic reliance should be reviewed. Routine eye examinations are advised as part of overall health care.: Patient was informed and verbally consented to the use of an ambient scribe for clinic note documentation during this visit. Discussion Notes I discussed the current management of the patient's diabetes mellitus with a focus on maintaining an HbA1c target of less than 7.0%. I highlighted the success of dietary management in achieving relatively stable blood sugar levels. For hypercholesterolemia, we reiterated the importance of continued rosuvastatin therapy to maintain optimal LDL levels. I recommended continuing the antihypertensive medication regimen since blood pressure control remains stable. We reviewed the implications of chronic kidney disease, acknowledging that the kidney function has remained unchanged. Pain management options for lumbar spondylosis were discussed, emphasizing the need to address discomfort while avoiding increased narcotic use. Periodic follow-up visits were suggested to reassess these conditions, and I advised that a routine eye examination is essential. Patient Instructions - Continue current medications as prescribed. - Maintain dietary control to manage diabetes. - Monitor blood pressure regularly. - Schedule follow-up for routine health check-ups. - Consider scheduling an eye examination. - Seek immediate care if experiencing severe pain or new symptoms. Orders: Orders Lipid Panel Today E78.00 - Pure hypercholesterolemia, unspecified, E78.2 - Mixed hyperlipidemia Free T4 (Free Thyroxine) Today E78.2 - Mixed hyperlipidemia Hemoglobin A1c Today E78.2 - Mixed hyperlipidemia Complete Blood Count Auto Diff Today E78.2 - Mixed hyperlipidemia Comprehensive Met. Panel Today E78.2 - Mixed hyperlipidemia Thyroid Stimulating Hormone Today E78.2 - Mixed hyperlipidemia Vitamin B12 and Folate Today E78.2 - Mixed hyperlipidemia
== END 2024-08-21 15:16 | disposition home or self-care (01) ==
LOC: HO.HMCH 14:12
PROVIDERS: PCP Internal Medicine; Visit Provider Internal Medicine
DX: E11.65 Type 2 diabetes mellitus with hyperglycemia (principal); I10 Essential (primary) hypertension; E78.2 Mixed hyperlipidemia; K21.9 Gastro-esophageal reflux disease without esophagitis; M47.816 Spondylosis without myelopathy or radiculopathy, lumbar region

== ENCOUNTER → 2024-08-21 14:12 | Outpatient (BNVA) | payer MEDICARE, SELFPAY | PROVIDERS: PCP Internal Medicine; Visit Provider Internal Medicine | DX: E11.65 Type 2 diabetes mellitus with hyperglycemia (principal); I10 Essential (primary) hypertension; E78.2 Mixed hyperlipidemia; K21.9 Gastro-esophageal reflux disease without esophagitis; M47.816 Spondylosis without myelopathy or radiculopathy, lumbar region; Z79.899 Other long term (current) drug therapy | CPT/HCPCS: 96127; 99212 ==

== ENCOUNTER 2024-09-02 10:56 | Outpatient (REF) | payer MEDICARE, SELFPAY ==
[2024-09-02 11:07] LABS: MANUAL DIFF FLAG NO
[2024-09-02 11:45] LABS: Basophils Absolute Auto 0.1 X10*3/uL (0.0-0.2); Basophils Percent Auto 0.9 % (0-2); Eosinophils Absolute Auto 0.1 X10*3/uL (0.0-0.4); Eosinophils Percent Auto 1.7 % (0-4); Hematocrit 42.8 % (42.0-52.0); Hemoglobin 14.1 g/dl (14.0-18.0); Imm Gran Abs Auto 0.02 X10*3/uL (0.00-0.03); Imm Gran Pct Auto 0.3 % (0.0-0.4); Lymphocytes Absolute Auto 1.5 X10*3/uL (1.2-4.9); Lymphocytes Percent Auto 19.5 % (20-40); Mean Corpuscular HGB Conc 32.9 g/dl (31.0-36.0); Mean Corpuscular Hemoglobin 29.9 pg (27.0-33.0); Mean Corpuscular Volume 90.7 fL (80.0-98.0); Mean Platelet Volume 10.8 fL (9.4-12.4); Monocytes Absolute Auto 0.7 X10*3/uL (0.1-1.2); Monocytes Percent Auto 8.6 % (2-11); Neutrophils Absolute Auto 5.3 x10*3/uL (2.0-8.3); Platelet Count 207 X10*3/uL (160-400); Red Blood Count 4.72 X10*6/uL (4.60-5.80); Red Cell Distribution Width 12.9 % (11.0-16.0); White Blood Count 7.7 X10*3/uL (4.8-10.8)
[2024-09-02 12:12] LABS: Estimated Average Glucose 143 mg/dL; Hemoglobin A1C 177.2622 umol/L; Hemoglobin A1c % 6.6 % (<6.0); Total Hemoglobin (HGBA1C) 3660.7991 umol/L
[2024-09-02 12:30] LABS: Alanine Aminotransferase 24 U/L (0-40); Albumin Level 4.1 g/dL (3.5-5.0); Alkaline Phosphatase 72 U/L (39-117); Anion Gap 11 (12-20); Aspartate Amino Transferase 28 U/L (5-37); Bilirubin Total 0.7 mg/dL (0.0-1.0); Blood Urea Nitrogen 16 mg/dL (9-16); Calcium 9.4 mg/dL (8.4-10.2); Carbon Dioxide 30 mmol/L (22-29); Chloride 101 mmol/L (96-108); Cholesterol 109 mg/dL (<200); Estimated Glomerular Filt Rate > 60; Glucose Random 137 mg/dL (60-115); HDL Cholesterol 54 mg/dL (>40); LDL Cholesterol Calculated 40 mg/dL (<100); Potassium 3.9 mmol/L (3.3-5.1); Sodium 138 mmol/L (135-145); Total Protein 6.7 g/dL (6.5-8.0); Triglycerides 77 mg/dL (<150)
[2024-09-02 12:34] LABS: Free T4 (Free Thyroxine) 1.02 ng/dL (0.71-1.85); Thyroid Stimulating Hormone 1.12 uIU/mL (0.32-4.0)
[2024-09-02 12:44] LABS: Folate 13.5 ng/mL (> or = 4.0); Vitamin B12 509 pg/mL (200-900)
== END 2024-09-02 10:57 | disposition home or self-care (01) ==
LOC: HO.LAB 10:56
PROVIDERS: PCP Internal Medicine; Visit Provider Internal Medicine
DX: E78.2 Mixed hyperlipidemia (principal); E78.00 Pure hypercholesterolemia, unspecified; Z13.1 Encounter for screening for diabetes mellitus
CPT/HCPCS: 36415; 80053; 80061; 82607; 82746; 83036; 84439; 84443; 85025

== ENCOUNTER → 2024-10-16 10:21 | Outpatient (BNVA) | payer MEDICARE, SELFPAY | PROVIDERS: PCP Internal Medicine; Visit Provider Internal Medicine ==

== ENCOUNTER 2024-10-24 16:40 | Outpatient (AMB) | payer MEDICARE, SELFPAY ==
[2024-10-24 16:42] VITALS: BP 136/82; PULSE 75; O2SAT 95; BMI 25.9
--- NOTE | 2024-10-24 16:42 | A.OFFPC_ITS ---
Vital Signs 10/24/24 16:42 Height 5 ft 7 in Weight 165 lb 8 oz BMI 25.9 BP 136/82 Blood Pressure Location Lt brachial Position Sitting Pulse 75 Pulse Source Pulse Oximeter Pulse Oximetry (%) 95 Oxygen Delivery Method Room Air Intake Visit Reasons: Per Dr. Gross Attending Radiologist Required: No Accompanied by: Self / Same As Patient Allergies No Known Allergies Allergy (Verified 10/24/24 16:43) Tobacco use date assessed: 08/21/24 Fall risk assessment: No Falls in past year Last assessed Fall Risk: 10/24/24 Dental Screening Dental Screen Date: 10/24/24 Did you have a dental visit in the last 12 months?: No Did you have a dental problem in the last 6 months where you did not have access to dental care?: No Was dental information given to patient?: No [facility] Medical History (Updated 10/24/24 @ 17:15 by Estella Gross MD) Positive colorectal cancer screening using Cologuard test Impaired glucose tolerance Palpitations Non-ST elevation [place] (NSTEMI) Colonoscopy refused Colon cancer screening Scoliosis SOBOE (shortness of breath on exertion) CKD (chronic kidney disease) stage 3, GFR 30-59 ml/min Hypertension GERD (gastroesophageal reflux disease) Lumbar spondylosis Hyperlipidemia Overweight (BMI 25.0-29.9) Surgical History H/O tooth extraction History of removal of nevus History of arthroscopy of left knee History of appendectomy Family History Father No problems noted. Mother No problems noted. Brother Prostate cancer Son Colon cancer History of cancer chemotherapy Social History Household Members: Spouse and Family Housing: House Alcohol intake: never Patient Tobacco Use Status: Former Tobacco user Tobacco use type: Cigarette e-Cigarette/Vaping Use: Never Used Second Hand Smoke Exposure: No Advance Directives Date on File: 10/12/21 service: No Current occupational status: retired Current occupational exposures/hazards: No Cognitive needs: Yes (cane) Hearing needs: Yes Vision needs: Yes Questionnaire PHQ-9 Over the last 2 weeks, how often have you been bothered by any of the following problems? 1. Little interest or pleasure in doing things: not at all 2. Feeling down, depressed, or hopeless: several days 3. Trouble falling or staying asleep, or sleeping too much: not at all 4. Feeling tired or having little energy: not at all 5. Poor appetite or overeating: not at all 6. Feeling bad about yourself - or that you are a failure or have let yourself or your family down: not at all 7. Trouble concentrating on things, such as reading the newspaper or watching television: not at all 8. Moving or speaking so slowly that other people could have noticed. Or the opposite - being so fidgety or restless that you have been moving around a lot more than usual: not at all 9. Thoughts that you would be better off or of hurting yourself in some way: not at all Total score: 1 Source: Developed by Drs. Veto Cm, Fransisca Parra, Fabrice Gómez and colleagues, with an educational juan m from [employer]. Thrive Questionnaire Date Thrive assessed: 10/24/24 I am a: Patient What is your living situation today?: I have a steady place to live Within the past 12 months, did the food you bought not last and you didn't have the money to get more?: Never true Within the past 12 months, did you worry whether your food would run out before you got money to buy more?: Never true Do you have trouble paying for medicines?: No Do you have trouble getting transportation to medical appointments?: No Do you have trouble paying your heating and electricity bill?: No Do you have trouble taking care of your child, family member or friend?: No Do you have trouble with day-to-day activities such as bathing, preparing meals, shopping, managing finances, etc.?: No Are you currently unemployed and looking for a job?: No Are you interested in more education?: No Please select the resources that you would like help with: None Currently or been in a relationship where the following occur: No concerns reported THRIVE Score: 0 AUDIT C Alcohol Use Questionnaire (AUDIT-C) 1. How often do you have a drink containing alcohol?: Never 3. How often do you have six or more drinks on one occasion?: Never Total Score: 0 ZARA-7 AMB Questionnaire ZARA-7 Date ZARA - 7 assessed: 10/24/24 Feeling nervous, anxious, or on edge: 0 = Not at all Not being able to stop or control worryin = Not at all Worrying too much about different things: 0 = Not at all Trouble relaxin = Not at all Being so restless that it is hard to sit still: 0 = Not at all Becoming easily annoyed or irritable: 0 = Not at all Feeling afraid as if something awful might happen: 0 = Not at all Total ZARA-7 score (0-4 normal; 5-9 mild; 10-14 moderate; 15-21 severe): 0 Source: Developed by Drs. Veto Cm, Fransisca Parra, Fabrice Gómez and colleagues, with an educational juan m from [employer]. Physical exam (Primary Care) Vital Signs: Last Vital Signs Pulse 75 10/24/24 16:42 BP 136/82 10/24/24 16:42 Pulse Ox 95 10/24/24 16:42 Oxygen Delivery Method Room Air 10/24/24 16:42 BMI result Body Mass Index 25.9 Tobacco/Smoking Status: Tobacco use Status Tobacco use date assessed 08/21/24 10/24/24 16:49 Patient Tobacco Use Status Former Tobacco user 10/24/24 16:49 Tobacco use type Cigarette 10/24/24 16:49 e-Cigarette/Vaping Use Never Used 10/24/24 16:49 PHQ-9: PHQ-9 Score PHQ-9: Total score 1 10/24/24 17:18 Thrive Assessment: Date of Thrive Assessment Date Thrive assessed 10/24/24 10/24/24 16:49 Currently or been in a relationship where the following occur: No concerns reported Const General: alert; No acute distress Eyes Conjunctivae: conjunctivae normal Resp Auscultation: clear to auscultation bilaterally Cardio Rate: regular rate Rhythm: regular rhythm GI Inspection: Yes normal to inspection Extrem General: Yes normal to inspection and No edema Coding Level of Care Code Est Pt Level 4 (92310) Complex EM visit Add On G2211 Diagnoses Type 2 diabetes mellitus with hyperglycemia E11.65 Gastroesophageal reflux disease without esophagitis K21.9 Esophagitis presence: without esophagitis Stage 3a chronic kidney disease N18.31 Chronic kidney disease stage 3 subtype: stage 3a (GFR 45-59) Positive colorectal cancer screening using Cologuard test R19.5 Lumbar spondylosis M47.816 Essential hypertension I10 Hypertension type: essential hypertension Coronary artery disease I25.10 Mixed hyperlipidemia E78.2 Hyperlipidemia type: mixed hyperlipidemia Assessment & Plan Assessment & Plan (1) Type 2 diabetes mellitus with hyperglycemia: Code(s): E11.65 - Type 2 diabetes mellitus with hyperglycemia Category: Medical Plan: Decrease the amount of carbohydrate intake, pasta, bread, rice and potatoes are all sugar and that is aside from all the sweet stuff, remember that fruits are good but they are Sweet also. Diet controlled hemoglobin A1c goal of less than 7.0 (2) GERD (gastroesophageal reflux disease): Comment: Well controlled Code(s): K21.9 - Gastro-esophageal reflux disease without esophagitis Category: Medical Qualifiers: Esophagitis presence: without esophagitis Qualified Code(s): K21.9 - Gastro-esophageal reflux disease without esophagitis Plan: Avoid the foods that causes that usually spicy foods, tomato products, juices, coffee, soda and foods that your sensitive to. After eating do not lie down, allow 3-4 hours before in lie down. And keep the head of bed above 30 degrees to avoid the acid from going up. (3) CKD (chronic kidney disease) stage 3, GFR 30-59 ml/min: Code(s): N18.30 - Chronic kidney disease, stage 3 unspecified Category: Medical Qualifiers: Chronic kidney disease stage 3 subtype: stage 3a (GFR 45-59) Qualified Code(s): N18.31 - Chronic kidney disease, stage 3a Plan: Continue to monitor keep well hydrated avoid NSAIDs (4) Positive colorectal cancer screening using Cologuard test: Comment: History of colon polyps, now with positive Cologuard- needs colon- extremely anxious- so of colon cancer- iron def- on supplement- ref EGD-persistent reflux Code(s): R19.5 - Other fecal abnormalities Category: Medical Plan: Discussed with the patient the need for colonoscopy (5) Lumbar spondylosis: Comment: [facility] pain 2010 Code(s): M47.816 - Spondylosis without myelopathy or radiculopathy, lumbar region Category: Medical Plan: Narcotic pain meds: Is being prescribed with the understanding that these medications are potentially addictive and should be used only when absolutely necessary and must always be secured. Any remaining pills should be safely disposed off appropriately. Patient is advised that narcotics can impaired judgment and one should not drive or operate heavy machinery while taking these medications. Never share these medications with anybody and do not leave them unattended. They will not be replaced under any circumstances. (6) Hypertension: Code(s): I10 - Essential (primary) hypertension Category: Medical Qualifiers: Hypertension type: essential hypertension Qualified Code(s): I10 - Essential (primary) hypertension Plan: Continue with blood pressure medication. Decrease salt intake and exercise on lisinopril 5 mg once a day atenolol chlorthalidone 100/25 mg once a day (7) Coronary artery disease: Code(s): I25.10 - Atherosclerotic heart disease of [place] coronary artery without angina pectoris Category: Medical Plan: Control the cholesterol, weight, blood pressure, diabetes continue with aspirin (8) Hyperlipidemia: Code(s): E78.5 - Hyperlipidemia, unspecified Category: Medical Qualifiers: Hyperlipidemia type: mixed hyperlipidemia Qualified Code(s): E78.2 - Mixed hyperlipidemia Plan: Avoid fried foods, chicken skin, eggs, butter margarine, pastries and meat. Be it pork or beef they have a lot of cholesterol on rosuvastatin LDL goal of less than 70 and triglyceride of less than 150 Plan History of Present Illness The patient is an 83-year-old male presenting with weight loss and concerns regarding a positive Cologuard test. The patient reports a weight loss of 15 pounds over the last five months, which he attributes to a recent dietary change involving a fresh diet. He has a history of diabetes mellitus, which is currently diet-controlled, with a recent hemoglobin A1c of 6.6%. His blood sugar levels have been fluctuating, with a recent reading of 139 mg/dL, which he considers high, but he has managed to reduce it to 120 mg/dL through dietary adjustments. The patient has a history of hypercholesterolemia, with a recent LDL cholesterol level of 40 mg/dL, which is considered optimal. He is currently on rosuvastatin for cholesterol management. The patient has been diagnosed with gastroesophageal reflux disease (GERD) and is advised to continue monitoring and maintain hydration. He has hypertension, managed with lisinopril and atenolol/chlorthalidone combination therapy. The patient has chronic kidney disease, with normal renal function noted in the last blood work conducted in August. He has a history of generalized anxiety disorder and coronary artery disease, for which he is on aspirin therapy. The patient has lumbar spondylosis and is on cardiac pain medication. Preventative care measures include a positive Cologuard test in October 2021, indicating the need for further evaluation, although the patient has declined a colonoscopy due to previous adverse experiences with the preparation drink. Health Maintenance - Colon cancer screening with stool test (positive Cologuard test) - Regular monitoring of blood glucose levels for diabetes management - Cholesterol management with rosuvastatin Social History - Dietary changes: Patient reports following a fresh diet recently, contributing to weight loss. Review of Systems - General: Reports weight loss of 15 pounds over the last five months. - Endocrine: Reports blood sugar level of 139 mg/dL, reduced to 120 mg/dL with dietary changes. - Gastrointestinal: Denies nausea, vomiting, sore throat, or diarrhea. Reports normal bowel movements with occasional flat nodules. - Genitourinary: Reports nocturia, waking up at least twice a night to urinate. - Cardiovascular: Denies chest pain or palpitations. - Respiratory: Denies dyspnea or cough. Physical Exam Results - Labs: Hemoglobin A1c is 6.6%. - Labs: LDL cholesterol is 40 mg/dL. - Labs: Normal blood count, electrolytes, and renal function as of August. - Screening: Positive Cologuard test in October 2021. Plan The patient is advised to continue with dietary management for diabetes mellitus, aiming to maintain hemoglobin A1c below 7.0%. For hypercholesterolemia, the patient should continue rosuvastatin therapy to maintain LDL cholesterol levels below 70 mg/dL. The patient is encouraged to maintain hydration and monitor symptoms for gastroesophageal reflux disease GERD). Hypertension management includes continuing lisinopril and atenolol/chlorthalidone therapy. Preventative care discussions emphasized the importance of further evaluation following the positive Cologuard test, despite the patient's reluctance for a colonoscopy due to previous adverse experiences. Alternative screening methods such as CT colonography were discussed as potential options. Patient was informed and verbally consented to the use of an ambient scribe for clinic note documentation during this visit. Discussion Notes I discussed with the patient the importance of maintaining dietary control for diabetes and continuing rosuvastatin for cholesterol management. We reviewed the need for ongoing monitoring of GERD symptoms and the continuation of current antihypertensive therapy. Regarding the positive Cologuard test, I emphasized the need for further evaluation and discussed alternative screening options such as CT colonography due to the patient's reluctance for a colonoscopy. Patient Instructions - Continue with your current diet to manage diabetes and aim to keep your blood sugar levels stable. - Take your cholesterol medication as prescribed to maintain optimal levels. - Stay hydrated and monitor any symptoms of reflux. - Continue your blood pressure medications as directed. - Consider alternative screening options for colon cancer if you are uncomfortable with a colonoscopy. Orders: Referrals General Surgery Referral R19.5 - Other fecal abnormalities
== END 2024-10-24 17:32 | disposition home or self-care (01) ==
LOC: HO.HMCH 16:41
PROVIDERS: PCP Internal Medicine; Visit Provider Internal Medicine
DX: E11.65 Type 2 diabetes mellitus with hyperglycemia (principal); K21.9 Gastro-esophageal reflux disease without esophagitis; N18.31 Chronic kidney disease, stage 3a; R19.5 Other fecal abnormalities; M47.816 Spondylosis without myelopathy or radiculopathy, lumbar region; I10 Essential (primary) hypertension; I25.10 Atherosclerotic heart disease of native coronary artery without angina pectoris; E78.2 Mixed hyperlipidemia

== ENCOUNTER → 2024-10-24 16:40 | Outpatient (BNVA) | payer MEDICARE, SELFPAY | PROVIDERS: PCP Internal Medicine; Visit Provider Internal Medicine | DX: E11.65 Type 2 diabetes mellitus with hyperglycemia (principal); I12.9 Hypertensive chronic kidney disease with stage 1 through stage 4 chronic kidney disease, or unspecified chronic kidney disease; E11.22 Type 2 diabetes mellitus with diabetic chronic kidney disease; N18.31 Chronic kidney disease, stage 3a; K21.9 Gastro-esophageal reflux disease without esophagitis; R19.5 Other fecal abnormalities; M47.816 Spondylosis without myelopathy or radiculopathy, lumbar region; I25.10 Atherosclerotic heart disease of native coronary artery without angina pectoris; E78.2 Mixed hyperlipidemia | CPT/HCPCS: 99212 ==

== ENCOUNTER 2024-11-04 15:37 | Outpatient (AMB) | payer MEDICARE, SELFPAY ==
--- NOTE | 2024-11-04 15:41 | MHC.OFFVIS ---
Vital Signs 11/04/24 15:42 Height 5 ft 7 in Weight 163 lb BMI 25.5 BP 112/60 Blood Pressure Location Lt brachial Position Sitting Pulse 97 Pulse Oximetry (%) 64 L Oxygen Delivery Method Room Air Intake Visit Reasons: fecal abnormailities pt Intake Note: Patient complex follow up for fecal abnormalities/ Tyesha schaffer joshua was 11/23/2021. Patient denies any GI issues for today. Member Of Parliament Required: No Accompanied by: Spouse Allergies No Known Allergies Allergy (Verified 11/04/24 15:40) Medication List - Last Reconciled 11/04/24 by Mey Machado CNP aspirin 81 mg PO DAILY atenolol-chlorthalidone 100-25 mg 1 tab PO DAILY buprenorphine HCl 300 mcg buccal Q12H lisinopril 5 mg PO DAILY 90 days omeprazole 40 mg PO DAILY rosuvastatin (Crestor) 20 mg PO DAILY 90 days HPI HPI fecal abnormailities [place] pt: Details: Patient is a 83-year-old male with PMH of hypertension, hyperlipidemia, CKDIII and GERD. Last visit with TIFFANY Cardoso 11/23/2021 for colonoscopy screening. Patient is accompanied by his Chelsi. he presents for follow up on positive cologuard form 10/23/2021. He was scheduled to have a colonoscopy but did not complete due to prep intolerance. He denies current abdominal pain, nausea, vomiting, or blood in stools. He reports infrequent heartburn when he eats something wrong and occasional burning sensation in his chest with overeating, feeling as if food is stuck with slight trouble swallowing during these episodes. Symptoms are relieved by antacids. Wild expresses concern about undergoing colonoscopy due to his hiatal hernia and fear of complications. He has had three previous colonoscopies without issues but struggled with preparation drink during his last attempt. He is willing to consider the procedure with alternative preparation method (Miralax split prep). He reports recent unintentional weight loss which has stabilized at 160 pounds over the past two weeks after dietary changes. He has been fasting and avoiding junk food to manage what he believes are blood sugar issues. He reports history of heart issues including tachycardia episode in 2011 with pulse rate over 240 due to medication change, causing minor cardiac damage. He denies cardiac symptoms since then. Patient denies: fever/chills, appetite changes, regurgitation, unintentional wt loss, ab pain or melena/hematochezia. Social hx: - Recently changed diet to reduce junk food and manage blood sugar -denies ETOH use -denies recreational drug use -non-smoker - family hx as below -denies personal hx of CA -tolerated anesthesia in the past without difficulty. [facility] Medical History (Updated 11/04/24 @ 16:53 by Mey Machado CNP) Positive colorectal cancer screening using Cologuard test Impaired glucose tolerance Palpitations Non-ST elevation [place] (NSTEMI) Colonoscopy refused Colon cancer screening Scoliosis SOBOE (shortness of breath on exertion) CKD (chronic kidney disease) stage 3, GFR 30-59 ml/min Hypertension GERD (gastroesophageal reflux disease) Lumbar spondylosis Hyperlipidemia Overweight (BMI 25.0-29.9) Surgical History H/O tooth extraction History of removal of nevus History of arthroscopy of left knee History of appendectomy Family History (Updated 11/04/24 @ 16:08 by Mey Machado CNP) Father Colon cancer Mother No problems noted. Brother Prostate cancer Son Colon cancer History of cancer chemotherapy Social History Household Members: Spouse and Family Housing: House Alcohol intake: never Patient Tobacco Use Status: Former Tobacco user Tobacco use type: Cigarette e-Cigarette/Vaping Use: Never Used Second Hand Smoke Exposure: No Advance Directives Date on File: 10/12/21 service: No Current occupational status: retired Current occupational exposures/hazards: No Cognitive needs: Yes (cane) Hearing needs: Yes Vision needs: Yes Review of Systems Const Reports as per HPI ENT Reports as per HPI Card Reports as per HPI Resp Reports as per HPI GI Reports as per HPI Reports as per HPI Physical Exam Vital Signs: Last Vital Signs Pulse 97 11/04/24 15:42 BP 112/60 11/04/24 15:42 Pulse Ox 64 L 11/04/24 15:42 Oxygen Delivery Method Room Air 11/04/24 15:42 BMI result Body Mass Index 25.5 Const General: healthy appearing, no acute distress and well developed Nutritional Appearance: well nourished Orientation/consciousness: patient oriented x3 HEENT Head: Yes normal to inspection, Yes normocephalic and Yes atraumatic Face and sinus: Yes normal facial exam Eyes General: appearance normal, both eyes and all related structures Neck Neck: Yes normal visual inspection Resp Effort & Inspection: normal respiratory effort, able to speak in complete sentences, no tracheal deviation and symmetric chest movement Auscultation: clear to auscultation bilaterally Cardio Jugular venous distension: no JVD Rate: regular rate Rhythm: regular rhythm Heart sounds: S1 normal heart sound present, S2 normal heart sound present, no gallops and no murmurs GI Inspection: Yes normal to inspection, No distended and Yes obesity Palpation (GI): Soft to palpation, not firm, nontender and No hepatosplenomegaly present Auscultation: normoactive bowel sounds Neuro General: patient oriented x3 Gait exam (Neuro): Normal gait present Psych Appearance: grossly normal Mental Status: mental status grossly normal Speech and movement: Normal speech and movement present Affect: normal affect Attitude: cooperative Thought process: Normal thought process present Thought content: Normal thought content present Insight: Fair insight present (Psych) Judgement: Good judgement present (Psych) Assessment & Plan Assessment & Plan (1) Positive colorectal cancer screening using Cologuard test: Comment: History of colon polyps, positive Cologuard 10/2021- extremely anxious- son of colon cancer Code(s): R19.5 - Other fecal abnormalities Category: Medical Plan: Positive Cologuard test - High-risk for colorectal cancer with significant family history (son, father, paternal aunt from colon cancer). Also with 5.7 % wt loss since r2023, now stabilized. -Schedule colonoscopy with General Surgery department per pt's request -consider unintentional weight loss workup, monitor weight. (2) GERD (gastroesophageal reflux disease): Comment: Well controlled Code(s): K21.9 - Gastro-esophageal reflux disease without esophagitis Category: Medical Qualifiers: Esophagitis presence: without esophagitis Qualified Code(s): K21.9 - Gastro-esophageal reflux disease without esophagitis Plan: History of hiatal hernia with infrequent heartburn responding to antacids and occasional dysphagia when overeating. - Recommended to perform upper endoscopy (EGD) in conjunction with colonoscopy to evaluate hiatal hernia and upper GI tract. However, Wild declined and would like to proceed with colonoscopy as above - Continue current management with omeprazole daily. Plan pt was escorted to General Surgery department for appt scheduling. Follow up with Gastroenterology department as needed/desired. Time: I spent a total of 45 minutes on the date of encounter which includes: Preparing to see the patient (reviewed previous documentation, test results and medical history) Performing a medically appropriate exam and/or evaluation Ordering medications, tests, and procedures Documenting clinical information in the health record Coding Level of Care Code New Pt New Pt Level 4 (16041) Patient Type New Diagnoses Positive colorectal cancer screening using Cologuard test R19.5 Gastroesophageal reflux disease without esophagitis K21.9 Esophagitis presence: without esophagitis
[2024-11-04 15:42] VITALS: BP 112/60; PULSE 97; O2SAT 64; BMI 25.5
== END 2024-11-04 16:39 | disposition home or self-care (01) ==
LOC: HO.HGI 15:38
PROVIDERS: PCP Internal Medicine; Visit Provider Nurse Practitioner Family
DX: R19.5 Other fecal abnormalities (principal); K21.9 Gastro-esophageal reflux disease without esophagitis
CPT/HCPCS: 99204

== ENCOUNTER → 2024-11-04 15:37 | Outpatient (BNVA) | payer MEDICARE, SELFPAY | PROVIDERS: PCP Internal Medicine; Visit Provider Nurse Practitioner Family | DX: R19.5 Other fecal abnormalities (principal); Z80.0 Family history of malignant neoplasm of digestive organs; K21.9 Gastro-esophageal reflux disease without esophagitis; I12.9 Hypertensive chronic kidney disease with stage 1 through stage 4 chronic kidney disease, or unspecified chronic kidney disease; N18.30 Chronic kidney disease, stage 3 unspecified | CPT/HCPCS: 99202 ==

== ENCOUNTER 2024-11-14 10:24 | Outpatient (AMB) | payer MEDICARE, SELFPAY ==
--- NOTE | 2024-11-14 10:37 | A.OFFVIS_ITS ---
Vital Signs 11/14/24 10:47 Height 5 ft 7 in Weight 168 lb BMI 26.3 BP 150/78 H Blood Pressure Location Lt brachial Position Sitting Pulse 72 Intake Visit Reasons: colonoscopy screening Intake Note: Patient is seen in office for colonoscopy screening. 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 He said that he manuel cote had this done about 3 years ago. He said he was referred to a printed circuit boards solder leveler but at that time, he was not able to tolerate the bowel prep so he canceled the procedure He said he used to see Dr. Su of [facility] He currently denies any GI complaints. He says he does not notice any the patient, blood per rectum, or this has in his bowel habits. He does admit that he had lost about 12 lb in the past 4-5 months. He said he has not lost anymore in the past month. He says that his son diagnosed to have colon cancer about 8 years ago. [facility] Medical History (Updated 11/14/24 @ 10:47 by Jameson Blackman MD) Positive colorectal cancer screening using Cologuard test Positive colorectal cancer screening using Cologuard test Impaired glucose tolerance Palpitations Non-ST elevation [place] (NSTEMI) Colonoscopy refused Colon cancer screening Scoliosis SOBOE (shortness of breath on exertion) CKD (chronic kidney disease) stage 3, GFR 30-59 ml/min Hypertension GERD (gastroesophageal reflux disease) Lumbar spondylosis Hyperlipidemia Overweight (BMI 25.0-29.9) Surgical History H/O tooth extraction History of removal of nevus History of arthroscopy of left knee History of appendectomy Family History Father Colon cancer Mother No problems noted. Brother Prostate cancer Son Colon cancer History of cancer chemotherapy Social History Household Members: Spouse and Family Housing: House Alcohol intake: never Patient Tobacco Use Status: Former Tobacco user Tobacco use type: Cigarette e-Cigarette/Vaping Use: Never Used Second Hand Smoke Exposure: No Advance Directives Date on File: 10/12/21 service: No Current occupational status: retired Current occupational exposures/hazards: No Cognitive needs: Yes (cane) Hearing needs: Yes Vision needs: Yes Review of Systems Const Denies chills and Denies fever(s) Card Denies chest pain, Denies dyspnea and Denies dyspnea on exertion Resp Denies cough, Denies dyspnea and Denies dyspnea on exertion GI Denies hematochezia and Denies change in bowel habits Denies hematuria and Denies difficulty urinating Musc Reports abnormal gait, Reports back pain and Reports limited range of motion Neuro Reports abnormal gait, Denies focal weakness and Denies convulsions Psych Denies depression and Denies mood swings Physical Exam Vital Signs: Last Vital Signs Pulse 72 11/14/24 10:47 BP 150/78 H 11/14/24 10:47 BMI result Body Mass Index 26.3 Const General: comfortable and no acute distress Orientation/consciousness: patient oriented x3 Limitations: ambulation with cane Neck Neck: Yes no lymphadenopathy Resp Auscultation: clear to auscultation bilaterally Cardio Rhythm: regular rhythm GI Palpation (GI): Soft to palpation, nontender and no guarding Neuro General: patient oriented x3 Assessment & Plan Assessment & Plan (1) Positive colorectal cancer screening using Cologuard test: Code(s): R19.5 - Other fecal abnormalities Category: Medical Plan: He had a positive Cologuard test 3 years ago but was unable to proceed with colonoscopy I told him that colonoscopy is recommended because of this. He is very reluctant to proceed with colonoscopy. He said he has already ?old? and he says that he knows that colonoscopy has its own risks. I had a long discussion with the the him about the reason why colonoscopy is recommended for a positive called the card test. He remained very hesitant and does not want to schedule for a colonoscopy this time. I did tell him that another option is to just repeat his Cologuard test as this was done 3 years ago. I also told him that if he decides to change his mind and proceed with colonoscopy, he should call the office so we can schedule him His has also with him during the visit. Coding Level of Care Code New Pt Level 3 (44736) Diagnoses Positive colorectal cancer screening using Cologuard test R19.5
[2024-11-14 10:47] VITALS: BP 150/78; PULSE 72; BMI 26.3
== END 2024-11-14 10:51 | disposition home or self-care (01) ==
LOC: HO.HGS 10:24
PROVIDERS: PCP Internal Medicine; Visit Provider Surgery
DX: R19.5 Other fecal abnormalities (principal)
CPT/HCPCS: 99203

== ENCOUNTER → 2024-11-14 10:24 | Outpatient (BNVA) | payer MEDICARE, SELFPAY | PROVIDERS: PCP Internal Medicine; Visit Provider Surgery | DX: R19.5 Other fecal abnormalities (principal) | CPT/HCPCS: 99202 ==

== ENCOUNTER 2024-12-18 14:21 | Outpatient (AMB) | payer MEDICARE, SELFPAY ==
[2024-12-18 14:32] VITALS: BP 124/70; PULSE 76; O2SAT 95; BMI 25.5
--- NOTE | 2024-12-18 14:32 | A.OFFPC_ITS ---
Vital Signs 12/18/24 14:32 Height 5 ft 7 in Weight 163 lb BMI 25.5 BP 124/70 Blood Pressure Location Lt brachial Position Sitting Pulse 76 Pulse Source Pulse Oximeter Pulse Oximetry (%) 95 Oxygen Delivery Method Room Air Intake Visit Reasons: DM Allergies No Known Allergies Allergy (Verified 12/18/24 14:32) Tobacco use date assessed: 08/21/24 Fall risk assessment: No Falls in past year Last assessed Fall Risk: 12/18/24 Dental Screening Dental Screen Date: 10/24/24 [facility] Medical History (Updated 11/14/24 @ 10:47 by Jameson Blackman MD) Positive colorectal cancer screening using Cologuard test Positive colorectal cancer screening using Cologuard test Impaired glucose tolerance Palpitations Non-ST elevation [place] (NSTEMI) Colonoscopy refused Colon cancer screening Scoliosis SOBOE (shortness of breath on exertion) CKD (chronic kidney disease) stage 3, GFR 30-59 ml/min Hypertension GERD (gastroesophageal reflux disease) Lumbar spondylosis Hyperlipidemia Overweight (BMI 25.0-29.9) Surgical History H/O tooth extraction History of removal of nevus History of arthroscopy of left knee History of appendectomy Family History Father Colon cancer Mother No problems noted. Brother Prostate cancer Son Colon cancer History of cancer chemotherapy Social History Household Members: Spouse and Family Housing: House Alcohol intake: never Patient Tobacco Use Status: Former Tobacco user Tobacco use type: Cigarette e-Cigarette/Vaping Use: Never Used Second Hand Smoke Exposure: No Advance Directives Date on File: 10/12/21 service: No Current occupational status: retired Current occupational exposures/hazards: No Cognitive needs: Yes (cane) Hearing needs: Yes Vision needs: Yes Questionnaire PHQ-9 Over the last 2 weeks, how often have you been bothered by any of the following problems? 1. Little interest or pleasure in doing things: not at all 2. Feeling down, depressed, or hopeless: several days 3. Trouble falling or staying asleep, or sleeping too much: not at all 4. Feeling tired or having little energy: not at all 5. Poor appetite or overeating: not at all 6. Feeling bad about yourself - or that you are a failure or have let yourself or your family down: not at all 7. Trouble concentrating on things, such as reading the newspaper or watching television: not at all 8. Moving or speaking so slowly that other people could have noticed. Or the opposite - being so fidgety or restless that you have been moving around a lot more than usual: not at all 9. Thoughts that you would be better off or of hurting yourself in some way: not at all Total score: 1 Source: Developed by Drs. Veto Cm, Fransisca Parra, Fabrice Gómez and colleagues, with an educational juan m from [employer]. Thrive Questionnaire Date Thrive assessed: 10/24/24 ZARA-7 AMB Questionnaire ZARA-7 Date ZARA - 7 assessed: 10/24/24 Source: Developed by Drs. Veto Cm, Fransisca Parra, Fabrice Gómez and colleagues, with an educational juan m from [employer]. Physical exam (Primary Care) Vital Signs: Last Vital Signs Pulse 76 12/18/24 14:32 BP 124/70 12/18/24 14:32 Pulse Ox 95 12/18/24 14:32 Oxygen Delivery Method Room Air 12/18/24 14:32 BMI result Body Mass Index 25.5 Tobacco/Smoking Status: Tobacco use Status Tobacco use date assessed 08/21/24 12/18/24 14:33 Patient Tobacco Use Status Former Tobacco user 12/18/24 14:33 Tobacco use type Cigarette 12/18/24 14:33 e-Cigarette/Vaping Use Never Used 12/18/24 14:33 PHQ-9: PHQ-9 Score PHQ-9: Total score 1 12/18/24 14:57 Thrive Assessment: Date of Thrive Assessment Date Thrive assessed 10/24/24 12/18/24 14:33 Const General: alert; No acute distress Eyes Conjunctivae: conjunctivae normal Resp Auscultation: clear to auscultation bilaterally Cardio Rate: regular rate Rhythm: regular rhythm GI Inspection: Yes normal to inspection Extrem General: Yes normal to inspection and No edema Results AMB Hemoglobin A1c AMB Hemoglobin A1c 6.7 % Last Edit by Joy Bianchi CMA on 12/18/24 14 :57 Results Reviewed Results Reviewed: Laboratory Last Values Hgb A1c (Clinic) 6.7 % (4.0-6.0) H 12/18/24 14:33 Coding Level of Care Code Est Pt Prev Care >65y(35488) Diagnoses Type 2 diabetes mellitus with hyperglycemia E11.65 Coronary artery disease I25.10 Essential hypertension I10 Hypertension type: essential hypertension Gastroesophageal reflux disease without esophagitis K21.9 Esophagitis presence: without esophagitis Positive colorectal cancer screening using Cologuard test R19.5 Lumbar spondylosis M47.816 Generalized anxiety disorder F41.1 Assessment & Plan Assessment & Plan (1) Type 2 diabetes mellitus with hyperglycemia: Code(s): E11.65 - Type 2 diabetes mellitus with hyperglycemia Category: Medical Plan: Decrease the amount of carbohydrate intake, pasta, bread, rice and potatoes are all sugar and that is aside from all the sweet stuff, remember that fruits are good but they are Sweet also. Hemoglobin A1c goal of less than 7.0. Patient is under control August 2024 last test (2) Coronary artery disease: Code(s): I25.10 - Atherosclerotic heart disease of [place] coronary artery without angina pectoris Category: Medical Plan: Control the cholesterol, weight, blood pressure, diabetes on aspirin 81 mg once a day (3) Hypertension: Code(s): I10 - Essential (primary) hypertension Category: Medical Qualifiers: Hypertension type: essential hypertension Qualified Code(s): I10 - Essential (primary) hypertension Plan: Continue with blood pressure medication. Decrease salt intake and exercise takes lisinopril 5 mg once a day atenolol chlorthalidone 100/25 mg once a day (4) GERD (gastroesophageal reflux disease): Comment: Well controlled Code(s): K21.9 - Gastro-esophageal reflux disease without esophagitis Category: Medical Qualifiers: Esophagitis presence: without esophagitis Qualified Code(s): K21.9 - Gastro-esophageal reflux disease without esophagitis Plan: Avoid the foods that causes that usually spicy foods, tomato products, juices, coffee, soda and foods that your sensitive to. After eating do not lie down, allow 3-4 hours before in lie down. And keep the head of bed above 30 degrees to avoid the acid from going up. (5) Positive colorectal cancer screening using Cologuard test: Comment: History of colon polyps, positive Cologuard 10/2021- extremely anxious- son of colon cancer Code(s): R19.5 - Other fecal abnormalities Category: Medical Plan: Patient has met with the surgeon as well as prop and effects designer and declined colonoscopy (6) Lumbar spondylosis: Comment: [facility] pain 2010 Code(s): M47.816 - Spondylosis without myelopathy or radiculopathy, lumbar region Category: Medical Plan: Narcotic pain meds: Is being prescribed with the understanding that these medications are potentially addictive and should be used only when absolutely necessary and must always be secured. Any remaining pills should be safely disposed off appropriately. Patient is advised that narcotics can impaired judgment and one should not drive or operate heavy machinery while taking these medications. Never share these medications with anybody and do not leave them unattended. They will not be replaced under any circumstances. (7) Generalized anxiety disorder: Comment: Declined referral for counseling Code(s): F41.1 - Generalized anxiety disorder Category: Medical Plan: Stable Plan History of Present Illness The patient is an 84-year-old male presenting for a follow-up visit after a positive colorectal cancer screening test. The patient has a history of hypercholesterolemia, managed with lifestyle modifications and medication, with an LDL cholesterol of 40 mg/dL recorded in August. He also has lumbar spondylosis, managed with narcotic pain medication, which affects his urination, leading to dosage reduction. The patient is diagnosed with gastroesophageal reflux disease (GERD) and takes omeprazole, which effectively manages his symptoms. Hypertension is managed with lisinopril, atenolol, and chlorthalidone, with stable blood pressure readings. Chronic kidney disease is monitored regularly as part of his ongoing care. The patient has an anxiety disorder, which is part of his medical management. Diabetes mellitus is managed with a recent hemoglobin A1c of 6.6%, aiming to maintain an A1c of less than 7.0%. The patient had a positive colorectal cancer screening test but declined a colonoscopy despite recommendations, having consulted with a prop and effects designer and a surgeon. Health Maintenance - Colorectal cancer screening: Positive result, colonoscopy recommended but declined Social History - Nutritional intake: Limited carbohydrate intake, focusing on reducing potatoes and bread Review of Systems - Gastrointestinal: Reports effective management of GERD with omeprazole - Genitourinary: Reports difficulty with urination due to narcotic medication Physical Exam Results - Labs: Normal blood count, normal electrolytes, normal renal function, hemoglobin A1c 6.6%, LDL cholesterol 40 mg/dL Plan The patient will continue with his current management plan for hypercholesterolemia, maintaining lifestyle modifications and medication adherence. For lumbar spondylosis, the patient is advised to continue with narcotic pain medication, adjusting the dosage as needed to manage urinary side effects. Management of GERD will continue with omeprazole, which the patient reports as effective. Hypertension management will remain with the current regimen of lisinopril, atenolol, and chlorthalidone. Chronic kidney disease will be monitored regularly, with no changes to the current management plan. The patient's anxiety disorder will continue to be managed as part of his ongoing care. Diabetes management will focus on maintaining an A1c of less than 7.0%, with the patient encouraged to continue dietary modifications to achieve this goal. Despite a positive colorectal cancer screening, the patient has declined a colonoscopy, and this decision will be respected while continuing to monitor his condition. Patient was informed and verbally consented to the use of an ambient scribe for clinic note documentation during this visit. Discussion Notes During the visit, we discussed the management of the patient's chronic conditions, including hypercholesterolemia, lumbar spondylosis, GERD, hypertension, chronic kidney disease, anxiety disorder, and diabetes mellitus. We reviewed the importance of maintaining an A1c of less than 7.0% and the role of dietary modifications in achieving this goal. The patient was informed about the positive colorectal cancer screening and the recommendation for a colonoscopy, which he declined. We discussed the potential risks and benefits of the procedure, and the patient expressed his decision to forgo the colonoscopy at this time. Patient Instructions - Continue current medications for hypercholesterolemia, hypertension, GERD, and diabetes. - Adjust narcotic pain medication dosage as needed to manage urinary side effects. - Maintain dietary modifications to help control blood sugar levels. - Monitor symptoms and report any significant changes to your healthcare provider. Orders: Orders AMB Hemoglobin A1c Today Z13.9 - Encounter for screening, unspecified Medications: New oxycodone Partial Fill upon patient request. 10 mg PO BID PRN 10 tabs 0RF pain 7 days
== END 2024-12-18 15:12 | disposition home or self-care (01) ==
LOC: HO.HMCH 14:21
PROVIDERS: PCP Internal Medicine; Visit Provider Internal Medicine
DX: E11.65 Type 2 diabetes mellitus with hyperglycemia (principal); I25.10 Atherosclerotic heart disease of native coronary artery without angina pectoris; I10 Essential (primary) hypertension; K21.9 Gastro-esophageal reflux disease without esophagitis; R19.5 Other fecal abnormalities; M47.816 Spondylosis without myelopathy or radiculopathy, lumbar region; F41.1 Generalized anxiety disorder; Z13.9 Encounter for screening, unspecified

== ENCOUNTER → 2024-12-18 14:21 | Outpatient (BNVA) | payer MEDICARE, SELFPAY | PROVIDERS: PCP Internal Medicine; Visit Provider Internal Medicine | DX: E11.65 Type 2 diabetes mellitus with hyperglycemia (principal); I25.10 Atherosclerotic heart disease of native coronary artery without angina pectoris; I10 Essential (primary) hypertension; K21.9 Gastro-esophageal reflux disease without esophagitis; R19.5 Other fecal abnormalities; M47.816 Spondylosis without myelopathy or radiculopathy, lumbar region; F41.1 Generalized anxiety disorder | CPT/HCPCS: 83036; 99212 ==

== ENCOUNTER 2025-01-08 14:49 | Outpatient (AMB) | payer MEDICARE, SELFPAY ==
[2025-01-08 15:13] VITALS: BP 128/72; PULSE 73; BMI 25.4
--- NOTE | 2025-01-08 15:13 | MHC.OFFVIS ---
Vital Signs 01/08/25 15:13 Height 5 ft 7 in Weight 162 lb 4.163 oz BMI 25.4 BP 128/72 Blood Pressure Location Lt brachial Position Sitting Pulse 73 Pulse Source Monitor Intake Visit Reasons: Colonscopy Clearance Accompanied by: Spouse Allergies No Known Allergies Allergy (Verified 01/08/25 15:17) Medication List - Last Reconciled 01/08/25 by Kenny Rosas NP aspirin 81 mg PO DAILY atenolol-chlorthalidone 100-25 mg 1 tab PO DAILY buprenorphine HCl 300 mcg buccal Q12H lisinopril 5 mg PO DAILY 90 days omeprazole 40 mg PO DAILY rosuvastatin (Crestor) 20 mg PO DAILY 90 days HPI Comments Details: This is an 84-year-old male patient coming in for a preop cardiovascular clearance, accompanied by his . Patient with a history of hypertension, hyperlipidemia, and hospitalization back in October of 2021 for tachycardia and elevated troponins. Patient notes that at that time he was on atenolol for tachycardia and for blood pressure management patient was started on lisinopril however due to some misunderstanding, patient has stopped his atenolol and developed tachycardia again with heart rate in the 200s, none recorded. Patient was recommended a Holter study at that time which patient had refused. Patient at that time had also undergone myocardial perfusion study which was normal. Today, patient is denying any cardiac symptoms of exertional chest pain, shortness of breath, palpitations, dizziness, orthopnea, PND, leg edema, presyncope or syncope. Patient is reporting stable blood pressures and heart rates on the current medications. Patient's main concern is losing weight unintentionally for which patient is undergoing colonoscopy. [facility] Medical History Positive colorectal cancer screening using Cologuard test Positive colorectal cancer screening using Cologuard test Impaired glucose tolerance Palpitations Non-ST elevation [place] (NSTEMI) Colonoscopy refused Colon cancer screening Scoliosis SOBOE (shortness of breath on exertion) CKD (chronic kidney disease) stage 3, GFR 30-59 ml/min Hypertension GERD (gastroesophageal reflux disease) Lumbar spondylosis Hyperlipidemia Overweight (BMI 25.0-29.9) Surgical History H/O tooth extraction History of removal of nevus History of arthroscopy of left knee History of appendectomy Family History Father Colon cancer Mother No problems noted. Brother Prostate cancer Son Colon cancer History of cancer chemotherapy Social History Household Members: Spouse and Family Housing: House Alcohol intake: never Patient Tobacco Use Status: Former Tobacco user Tobacco use type: Cigarette e-Cigarette/Vaping Use: Never Used Second Hand Smoke Exposure: No Advance Directives Date on File: 10/12/21 service: No Current occupational status: retired Current occupational exposures/hazards: No Cognitive needs: Yes (cane) Hearing needs: Yes Vision needs: Yes Review of Systems Const Denies daytime sleepiness, Denies difficulty sleeping, Denies snoring, Denies stops breathing during sleep and Denies weakness Card Denies chest pain, Denies rapid heart rate, Denies irregular heart rhythm, Denies claudication, Denies leg edema, Denies lightheadedness, Denies palpitations, Denies dyspnea, Denies dyspnea on exertion, Denies orthopnea, Denies paroxysmal nocturnal dyspnea and Denies slow heart rate Resp Denies cough, Denies dyspnea, Denies dyspnea on exertion and Denies snoring GI Reports no additional complaints, Denies hematochezia, Denies change in stool character and Denies dyspepsia Musc Denies abnormal gait, Denies muscle weakness and Denies numbness Neuro Denies abnormal gait, Denies numbness and Denies weakness Endo Denies palpitations Physical Exam Vital Signs: Last Vital Signs Pulse 73 01/08/25 15:13 BP 128/72 01/08/25 15:13 BMI result Body Mass Index 25.4 Const General: cooperative, healthy appearing, comfortable and no acute distress Orientation/consciousness: patient oriented x3 HEENT Head: Yes normal to inspection Neck Neck: Yes normal visual inspection, Yes trachea midline and Yes supple Chest Chest palpation & inspection: normal inspection of the chest Resp Effort & Inspection: normal respiratory effort Auscultation: clear to auscultation bilaterally, no crackles, no rales, no rhonchi and no wheezes Cardio Jugular venous distension: no JVD Palpation: normal PMI Rate: regular rate Rhythm: regular rhythm Heart sounds: S1 normal heart sound present, S2 normal heart sound present, no click, no gallops, no murmurs and no rubs Peripheral pulses: Peripheral pulses 2+ throughout GI Inspection: Yes normal to inspection Palpation (GI): Soft to palpation Auscultation: normal bowel sounds Skin General skin exam: no rashes or lesions noted Neuro General: patient oriented x3 Extrem General: Yes normal to inspection, No no pedal edema and No calf tenderness Psych Appearance: grossly normal Mental Status: mental status grossly normal Speech and movement: Normal speech and movement present Office Procedures EKG Details: EKG today showed normal sinus rhythm, rate 73 beats per minute, [place], [place] [id number], Complete Assessment & Plan Assessment & Plan (1) Diastolic dysfunction: Code(s): I51.89 - Other ill-defined heart diseases Category: Medical Plan: 10/13/2021-echo study showed a normal LV systolic function with an ejection fraction at 65% with no wall motion abnormalities and no valvular pathology on echo from 09/21/2021. 11/29/2021-patient underwent myocardial perfusion study that showed normal perfusion. Clinically stable and euvolemic. (2) Hypertension: Code(s): I10 - Essential (primary) hypertension Category: Medical Qualifiers: Hypertension type: essential hypertension Qualified Code(s): I10 - Essential (primary) hypertension Plan: Blood pressure stable. Continue current regimen. Advised monitoring blood pressures with a goal less than 130/80. Advised on low-salt diet. (3) Hyperlipidemia: Code(s): E78.5 - Hyperlipidemia, unspecified Category: Medical Qualifiers: Hyperlipidemia type: mixed hyperlipidemia Qualified Code(s): E78.2 - Mixed hyperlipidemia Plan: Most recent LDL at 40. Continue statin therapy with an LDL goal less than 70. (4) Preop cardiovascular exam: Code(s): Z01.810 - Encounter for preprocedural cardiovascular examination Category: Medical Plan: EKG today is normal sinus rhythm. The patient is able to climb up a flight of stairs without experiencing shortness of breath, chest pain, or any other cardiovascular symptoms, indicating a functional capacity of at least 4.0 Mets. Given this fact, patient can proceed with the upcoming colonoscopy. Advised heart healthy diet, regular exercise, med compliance, and management of vascular risk factors. This note was generated using voice recognition software. While every effort has been made to ensure accuracy and proper manager track, there may be occasional errors that could affect the content or meaning of the described symptoms. Orders: Orders AMB EKG-In Office Today Z01.810 - Encounter for preprocedural cardiovascular examination Coding Level of Care Code Est Pt Level 4 (61062) Complex EM visit Add On G2211 Diagnoses Diastolic dysfunction I51.89 Essential hypertension I10 Hypertension type: essential hypertension Mixed hyperlipidemia E78.2 Hyperlipidemia type: mixed hyperlipidemia Preop cardiovascular exam Z01.810 CPT Codes EKG - CPT: 77404-[id number], Complete ([id number]) Time Spent (min) 31 Comment Time spent in reviewing the chart, test results, assessment, counseling and documentation.
== END 2025-01-08 15:43 | disposition home or self-care (01) ==
LOC: HO.HCS 14:50
PROVIDERS: PCP Internal Medicine; Visit Provider Internal Medicine
DX: I51.89 Other ill-defined heart diseases (principal); I10 Essential (primary) hypertension; E78.2 Mixed hyperlipidemia; Z01.810 Encounter for preprocedural cardiovascular examination
CPT/HCPCS: 93010; 99214; G2211

== ENCOUNTER → 2025-01-08 14:49 | Outpatient (BNVA) | payer MEDICARE, SELFPAY | PROVIDERS: PCP Internal Medicine; Visit Provider Internal Medicine | DX: Z01.810 Encounter for preprocedural cardiovascular examination (principal); Z12.11 Encounter for screening for malignant neoplasm of colon; I51.89 Other ill-defined heart diseases; I10 Essential (primary) hypertension; E78.2 Mixed hyperlipidemia | CPT/HCPCS: 93005; 99212 ==

== ENCOUNTER 2025-01-23 07:28 | Day surgery (SDC) | payer MEDICARE, SELFPAY ==
[2025-01-21 09:25] VITALS: BMI 26.3
[2025-01-23 08:06] VITALS: BP 142/87; PULSE 85; RESP 14; TEMP 36.7; O2SAT 95; BMI 24.9
[2025-01-23 08:17] LABS: Glucose, Whole Blood 123 mg/dL (60-115)
[2025-01-23] MEDS: Lactated Ringers 1,000 ML 100 ML IVCONT (08:19)
--- NOTE | 2025-01-23 08:50 | P.CONAN_ITS ---
Documented by User: Florence Danielle NP 01/21/25 12:39 HPI - Anesthesia Eval Consult details Narrative: 84yo M for Colonoscopy with Possible Polypectomy Cardiac optimized. Follows [facility] for [address] elevation myocardial infarction, felt not to be type 1, more likely type 2 related to patient's reported tachyarrhythmia at home PMFSH Active Problems Active Problems: All Active Problems Positive colorectal cancer screening using Cologuard test (Acute) Positive colorectal cancer screening using Cologuard test (Acute) Type 2 diabetes mellitus with hyperglycemia (Acute) Preop cardiovascular exam (Acute) Coronary artery disease (Acute) Erectile dysfunction (Acute) Iron deficiency anemia (Acute) Diastolic dysfunction (Acute) Scoliosis (Acute) Generalized anxiety disorder (Acute) CKD (chronic kidney disease) stage 3, GFR 30-59 ml/min (Acute) Hypertension (Acute) GERD (gastroesophageal reflux disease) (Acute) Lumbar spondylosis (Acute) Hyperlipidemia (Acute) Past Medical History Medical History Positive colorectal cancer screening using Cologuard test Positive colorectal cancer screening using Cologuard test Impaired glucose tolerance Palpitations Non-ST elevation [place] (NSTEMI) Colonoscopy refused Colon cancer screening Scoliosis SOBOE (shortness of breath on exertion) CKD (chronic kidney disease) stage 3, GFR 30-59 ml/min Hypertension GERD (gastroesophageal reflux disease) Lumbar spondylosis Hyperlipidemia Overweight (BMI 25.0-29.9) Family History Family History Father Colon cancer Mother No problems noted. Brother Prostate cancer Son Colon cancer History of cancer chemotherapy Surgical History Surgical History H/O tooth extraction History of removal of nevus History of arthroscopy of left knee History of appendectomy Social History Social History Household Members: Spouse and Family Housing: House Alcohol intake: never Patient Tobacco Use Status: Former Tobacco user Tobacco use type: Cigarette e-Cigarette/Vaping Use: Never Used Second Hand Smoke Exposure: No Use of substances other than those prescribed or required for medical reasons: No Have you been hit, kicked, punched, or otherwise hurt by someone within the past year? If so, by whom?: No Are you DNR?: No Advance Directives: No Advance Directives Information Provided: Yes Advance Directives Date on File: 10/12/21 Poor oral hygiene: No service: No Current occupational status: retired Current occupational exposures/hazards: No Cognitive needs: Yes (cane) Hearing needs: Yes Vision needs: Yes Meds Allergies Allergy/AdvReac Type Severity Reaction Status Date / Time No Known Allergies Allergy Verified 01/23/25 08:04 Exam Height,Weight and Vital Signs: Height 5 ft 7 in Weight 76.204 kg Narrative Narrative: EKG 01/2025 EKG Details: EKG today showed normal sinus rhythm, rate 73 beats per minute, normal PA, corrected QT. Per cardiology clearance note: 10/13/2021-echo study showed a normal LV systolic function with an ejection fraction at 65% with no wall motion abnormalities and no valvular pathology on echo from 09/21/2021. 11/29/2021-patient underwent myocardial perfusion study that showed normal perfusion. Assessment and Plan Assessment Anesthesia Assessment: Chart Reviewed Documented by User: Marii Sutton DO 01/23/25 09:12 PMFSH Past Medical History Medical History Positive colorectal cancer screening using Cologuard test Positive colorectal cancer screening using Cologuard test Impaired glucose tolerance Palpitations Non-ST elevation [place] (NSTEMI) Colonoscopy refused Colon cancer screening Scoliosis SOBOE (shortness of breath on exertion) CKD (chronic kidney disease) stage 3, GFR 30-59 ml/min Hypertension GERD (gastroesophageal reflux disease) Lumbar spondylosis Hyperlipidemia Overweight (BMI 25.0-29.9) Family History Family History Father Colon cancer Mother No problems noted. Brother Prostate cancer Son Colon cancer History of cancer chemotherapy Family history of problems with anesthesia: No Surgical History Surgical History H/O tooth extraction History of removal of nevus History of arthroscopy of left knee History of appendectomy History of Problems with Anesthesia: No Social History Social History Household Members: Spouse and Family Housing: House Alcohol intake: never Patient Tobacco Use Status: Former Tobacco user Tobacco use type: Cigarette e-Cigarette/Vaping Use: Never Used Second Hand Smoke Exposure: No Use of substances other than those prescribed or required for medical reasons: No Have you been hit, kicked, punched, or otherwise hurt by someone within the past year? If so, by whom?: No Are you DNR?: No Advance Directives: No Advance Directives Information Provided: Yes Advance Directives Date on File: 10/12/21 Poor oral hygiene: No service: No Current occupational status: retired Current occupational exposures/hazards: No Cognitive needs: Yes (cane) Hearing needs: Yes Vision needs: Yes Meds Allergies Allergy/AdvReac Type Severity Reaction Status Date / Time No Known Allergies Allergy Verified 01/23/25 08:04 Exam Exam Date and Time: 01/23/25 0850 Height,Weight and Vital Signs: Height 5 ft 7 in Weight 76.204 kg Vital Signs Temperature 98.1 F 01/23/25 08:06 Pulse Rate 85 01/23/25 08:06 Respiratory Rate 14 01/23/25 08:06 Blood Pressure 142/87 H 01/23/25 08:06 Pulse Oximetry 95 01/23/25 08:06 Oxygen Delivery Method Room Air 01/23/25 08:06 Temperature 98.1 F 01/23/25 08:06 Pulse Rate 85 01/23/25 08:06 Respiratory Rate 14 01/23/25 08:06 Blood Pressure 142/87 H 01/23/25 08:06 Pulse Oximetry 95 01/23/25 08:06 Oxygen Delivery Method Room Air 01/23/25 08:06 Airway Mallampati Class: III TM Dist: <=3cm Neck ROM: Limited Loose/Missing/Broken Teeth: Yes (edentulous top jaw) Heart: S1S2 Lungs: CTAB Assessment and Plan Assessment Anesthesia Assessment: Anesthesia Plan Discussed and Chart Reviewed Final Anesthetic Review Family History of Problems with Anesthesia: No History of Problems with Anesthesia: No NPO: Yes ASA Class: III Final Preanesthetic Review: No Changes in Pt Med Stat, Meds/Allgs Chart Reviewed, Consent Obtained/Reviewed and Anes Risks/Benef Reviewed Patient Risk: Low Procedure Risk: Low Anesthetic Plan Anesthetic Plan: MAC: and Agree w/ Assess. and Plan Disposition: Standard PACU
--- NOTE | 2025-01-23 08:53 | MHC.SHP ---
Pre-Procedural Eval Section A - 24 Hr Update-Section A only Date of Service: 01/23/25 Section B - Complete if H&P > 30 days Chief Complaint: Other fecal abnormalities Details of Present Illness: Had a positive Cologuard test, for colonoscopy today Relevant Family History (Specify if Yes): No Relevant Social History: None Present Medications: see Short Stay Collaborative assessment Medical History: Significant History (Diabetes, coronary artery disease, Reflux, Hypertension, kidney disease) Allergies: Allergies Allergy/AdvReac Type Severity Reaction Status Date / Time No Known Allergies Allergy Verified 01/23/25 08:04 Review of Systems Sugical H&P ROS: Negative: Constitution, Cardiovascular and Respiratory Exam Surgical H&P Exam: Normal: Heart, Normal: Lungs and Normal: Abdomen Plan Diagnosis/Plan: Unchanged I have reviewed the history and physical and performed a pertinent physical examination on my patient. No changes have occurred unless specified. Time Spent With Patient Time: Total time managing care of this patient today ____ minutes.
--- NOTE | 2025-01-23 09:48 | W.PM.OPN ---
Operative Note Operative Note Date of Service: 01/23/25 Narrative: Preop diagnosis: Positive Cologuard test Postop diagnosis:1. polyp about 1 cm in right colon outside the cecum 2. polyp about 1 cm, distal transverse 3. polyp about 1 cm, proximal transverse 4. diverticulosis, sigmoid Procedure: Colonoscopy with polypectomy using hot snare x3 Surgeon: Jameson Blackman MD The patient is an 84-year-old male who had a positive Cologuard test 3 years ago. He is here to have a colonoscopy done. He understood the technique of the planned procedure as was the risks, benefits, and alternatives . The patient was brought to the operating room and placed in left lateral decubitus position under monitored anesthesia care. A surgical time-out was done. A full digital rectal exam was done and this did not reveal any significant anal lesions. The tip of the Olympus colonoscope was gently introduced through the anal orifice advanced with insufflation all the way to the cecum. The cecum was intubated. The cecum was identified by visualization of the ileocecal valve as well as the appendiceal orifice. The cecal mucosa was unremarkable. The scope was gradually withdrawn with careful examination of the entire colonic mucosa being done with scope withdrawal. There was a 1 cm polyps seen in the distal transverse colon which was removed with hot snare. This was on a stalk. Another polyp was seen just outside the cecum also about 1 cm, with the stalk as well. This has removed using hot snare. A 3rd polyp was seen in the proximal transverse colon, also about 1 cm in size, also removed with a hot snare. There were some patches of the colon with some her stools which we had to irrigate and suction. It was however unlikely that any large lesion may have been missed. There was note of occasional diverticuli in the sigmoid. The rectum was reached and there were no lesions seen. The anal canal was unremarkable. The scope was then withdrawn completely with desufflation The patient tolerated the procedure well. There were no immediate complications. The patient will be seen in the office to discuss the path report. Despite the positive Cologuard test, I did not see large lesion that may be suspicious for a cancer at this time.
[2025-01-23 09:49] VITALS: BP 130/71; PULSE 80; RESP 16; TEMP 37.2; O2SAT 97
[2025-01-23 10:01] VITALS: BP 140/77; PULSE 83; RESP 16; TEMP 36.6; O2SAT 97
== END 2025-01-23 10:19 | disposition home or self-care (01) ==
PROVIDERS: PCP Internal Medicine; Visit Provider Surgery
PROC: 0DBE8ZZ Excision of Large Intestine, Via Natural or Artificial Opening Endoscopic (ICD-10-PCS; CPT 45385; principal; 2025-01-23 09:00)
DX: R19.5 Other fecal abnormalities (principal); Z80.0 Family history of malignant neoplasm of digestive organs; D12.2 Benign neoplasm of ascending colon; D12.3 Benign neoplasm of transverse colon; K57.30 Diverticulosis of large intestine without perforation or abscess without bleeding; K21.9 Gastro-esophageal reflux disease without esophagitis; I25.2 Old myocardial infarction; E78.5 Hyperlipidemia, unspecified; R00.2 Palpitations; R73.02 Impaired glucose tolerance (oral); R06.02 Shortness of breath; I12.9 Hypertensive chronic kidney disease with stage 1 through stage 4 chronic kidney disease, or unspecified chronic kidney disease; N18.30 Chronic kidney disease, stage 3 unspecified; E66.3 Overweight; Z68.26 Body mass index [BMI] 26.0-26.9, adult; Z79.82 Long term (current) use of aspirin; Z79.899 Other long term (current) drug therapy; Z87.891 Personal history of nicotine dependence; Z98.890 Other specified postprocedural states
CPT/HCPCS: 45385; 82947; 88305; C1725; J2003; J2371; J2704

== ENCOUNTER 2025-02-04 15:14 | Outpatient (REF) | payer MEDICARE, SELFPAY ==
[2025-02-04 16:43] LABS: Blood Urea Nitrogen 18 mg/dL (9-16); Estimated Glomerular Filt Rate > 60
== END 2025-02-04 15:15 | disposition home or self-care (01) ==
LOC: HO.LAB 15:14
PROVIDERS: PCP Internal Medicine; Visit Provider Surgery
DX: R19.5 Other fecal abnormalities (principal); Z79.899 Other long term (current) drug therapy; Z86.0100 Personal history of colon polyps, unspecified
CPT/HCPCS: 36415; 82565; 84520; 99212

== ENCOUNTER 2025-02-04 15:14 | Outpatient (AMB) | payer MEDICARE, SELFPAY ==
--- NOTE | 2025-02-04 15:15 | MHC.OFFVIS ---
Vital Signs 02/04/25 15:16 Height 5 ft 7 in Weight 158 lb 11.725 oz BMI 24.9 Intake Visit Reasons: S/P Colonoscopy Intake Note: This patient presents for post-op assessment status post Colonoscopy with polypectomy. (01/23/2025) Pt c/o; reports no complaints. 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 He tolerated the colonoscopy well. Here to discuss the findings. [facility] Medical History Positive colorectal cancer screening using Cologuard test Positive colorectal cancer screening using Cologuard test Impaired glucose tolerance Palpitations Non-ST elevation [place] (NSTEMI) Colonoscopy refused Colon cancer screening Scoliosis SOBOE (shortness of breath on exertion) CKD (chronic kidney disease) stage 3, GFR 30-59 ml/min Hypertension GERD (gastroesophageal reflux disease) Lumbar spondylosis Hyperlipidemia Overweight (BMI 25.0-29.9) Surgical History History of colonoscopy with polypectomy (~01/23/25) H/O tooth extraction History of removal of nevus History of arthroscopy of left knee History of appendectomy Family History Father Colon cancer Mother No problems noted. Brother Prostate cancer Son Colon cancer History of cancer chemotherapy Social History Household Members: Spouse and Family Housing: House Alcohol intake: never Patient Tobacco Use Status: Former Tobacco user Tobacco use type: Cigarette e-Cigarette/Vaping Use: Never Used Second Hand Smoke Exposure: No Advance Directives Date on File: 10/12/21 service: No Current occupational status: retired Current occupational exposures/hazards: No Cognitive needs: Yes (cane) Hearing needs: Yes Vision needs: Yes Review of Systems Const Denies chills and Denies fever(s) Card Denies chest pain Resp Denies cough GI Denies abdominal pain and Denies hematochezia Physical Exam Vital Signs: BMI result Body Mass Index 24.9 Const Other: Walks with a cane General: comfortable and no acute distress Resp Effort & Inspection: normal respiratory effort Cardio Rate: regular rate GI Palpation (GI): Soft to palpation, not firm, nontender and no guarding Assessment & Plan Assessment & Plan (1) Positive colorectal cancer screening using Cologuard test: Comment: History of colon polyps, positive Cologuard 10/2021- extremely anxious- son of colon cancer Code(s): R19.5 - Other fecal abnormalities Category: Medical Plan: Status post colonoscopy. I removed multiple polyps. All of these were adenomas without high-grade dysplasia or carcinoma. This polyps were from the distal transverse colon, the right colon near the cecum as well as the proximal transverse colon I would recommend repeating the colonoscopy after 1 year in view of his positive Cologuard test He also complains of unexplained weight loss. I am going to order for a CAT scan of the abdomen and pelvis. I am going to check his BUN creatinine prior to that so that he can have IV contrast is possible. I will see him in the office after his CAT scan He understands the plan well. His was with him during the visit. Orders: Orders Blood Urea Nitrogen 02/04/25 R19.5 - Other fecal abnormalities Creatinine 02/04/25 R19.5 - Other fecal abnormalities CT abdomen pelvis w IV con Today R19.5 - Other fecal abnormalities Coding Level of Care Code Est Pt Level 3 (79916) Diagnoses Positive colorectal cancer screening using Cologuard test R19.5
[2025-02-04 15:16] VITALS: BMI 24.9
== END 2025-02-04 15:32 | disposition home or self-care (01) ==
LOC: HO.HGS 15:14
PROVIDERS: PCP Internal Medicine; Visit Provider Surgery
DX: R19.5 Other fecal abnormalities (principal)
CPT/HCPCS: 99213

== ENCOUNTER 2025-03-13 11:48 | Outpatient (REF) | payer MEDICARE, SELFPAY ==
--- NOTE | ~2025-03-13 | CT_ITS ---
EXAMINATION: CT ABDOMEN AND PELVIS WITH CONTRAST CLINICAL INFORMATION: R19.5 - Other fecal abnormalities COMPARISON: None available. TECHNIQUE: Multidetector volumetric images were obtained from the superior aspect of the liver through the pubic symphysis following administration 85 mL of Omnipaque 350 intravenous contrast. Sagittal and coronal reformatted images were obtained on the technologist's workstation. This CT examination was performed using dose optimization techniques as appropriate, variously including the following: *Automated exposure control *Adjustment of mA and/or kV according to patient size (this includes techniques or standardized protocols for targeted exams where dose is matched to indication/reason for exam; i.e. extremities or head) *Use of iterative reconstruction technique FINDINGS: LUNG BASES: There is mild left basilar atelectasis. There is a Bochdalek hernia in the posterior left chest containing adipose tissue measuring 7 cm anteroposterior. LIVER, GALLBLADDER, AND BILIARY TREE: There is a simple hepatic cyst in the superior left lateral hepatic segment. The gallbladder is unremarkable with no evidence of radiopaque gallstones, gallbladder wall thickening, or obvious pericholecystic inflammatory changes. PANCREAS: The pancreas is abnormal. The pancreatic duct is dilated measuring approximately 14 mm diameter. There is severe atrophy of most of the pancreas, sparing the uncinate process and a portion of the head of the pancreas. There is mild heterogeneity of the uncinate process which appears prominent in size. SPLEEN: Unremarkable. ADRENAL GLANDS: Unremarkable. KIDNEYS AND URETERS: Multiple simple renal cysts are present, left greater than right. BLADDER: Unremarkable. GASTROINTESTINAL TRACT: Pseudodiverticula are present in the sigmoid colon. There is no wall thickening or fatty stranding. ABDOMINAL WALL: No significant hernia is appreciated. LYMPH NODES: Normal. VASCULAR: Multifocal vascular calcification is are present in the abdomen pelvis and inguinal regions. PELVIC VISCERA: Unremarkable. OSSEOUS STRUCTURES: There is severe levoscoliosis at the thoracolumbar junction with pronounced rotational component. 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 Follow-up MRI abdomen to evaluate the pancreas without and with IV contrast. Sigmoid diverticulosis without sign of acute infection. There is a large sliding hiatal hernia involves a large portion of the stomach body and fundus. There is a posterior left Bochdalek hernia containing adipose tissue. Fleischner guidelines were followed. Electronically signed by: Corey Hayward MD 03/13/2025 12:51 PM MIGUEL
[2025-03-13] MEDS: iohexoL 350 MG/ML 100 ML INFUS..BTL IV (12:32)
[2025-03-13 15:58] LABS: Creatinine POC 0.9 mg/dL (0.5-1.4); GFR POC > 60
== END 2025-03-13 11:49 | disposition home or self-care (01) ==
LOC: HO.CT 11:48
PROVIDERS: Absent Provider Internal Medicine; PCP Internal Medicine; Visit Provider Surgery
DX: R19.5 Other fecal abnormalities (principal)
CPT/HCPCS: 74177; 82565; Q9967

== ENCOUNTER → 2025-03-13 11:49 | Outpatient (BNV) | payer MEDICARE, SELFPAY | PROVIDERS: Absent Provider Internal Medicine; PCP Internal Medicine; Visit Provider Radiology Diagnostic Radiology | DX: K57.30 Diverticulosis of large intestine without perforation or abscess without bleeding (principal); K44.9 Diaphragmatic hernia without obstruction or gangrene; M62.5A Muscle wasting and atrophy, not elsewhere classified, back | CPT/HCPCS: 74177 ==

== ENCOUNTER 2025-03-19 11:34 | Outpatient (AMB) | payer MEDICARE, SELFPAY ==
[2025-03-19 11:46] VITALS: BMI 24.9
--- NOTE | 2025-03-19 11:46 | A.OFFVIS_ITS ---
Vital Signs 03/19/25 11:46 Height 5 ft 7 in Weight 159 lb BMI 24.9 Intake Visit Reasons: follow up ct scan Intake Note: Patient presents for Ct-Scan follow-up (03/13/2025). Pt c/o; reports no changes at this time. Accompanied by: Spouse Allergies No Known Allergies Allergy (Verified 03/19/25 11:50) HPI HPI follow up ct scan: Details: I had sent him for a CAT scan of the abdomen and pelvis in view of his this has with Cologuard test. He had been losing weight as well. I did not see any tumor on colonoscopy despite careful examination. He is here to discuss the findings on the CAT scan. He continues to have some weight loss. He denies any abdominal pain. Denies any changes in his bowel habits. [facility] Medical History Abnormal abdominal CT scan Positive colorectal cancer screening using Cologuard test Positive colorectal cancer screening using Cologuard test Impaired glucose tolerance Palpitations Non-ST elevation [place] (NSTEMI) Colonoscopy refused Colon cancer screening Scoliosis SOBOE (shortness of breath on exertion) CKD (chronic kidney disease) stage 3, GFR 30-59 ml/min Hypertension GERD (gastroesophageal reflux disease) Lumbar spondylosis Hyperlipidemia Overweight (BMI 25.0-29.9) Surgical History History of colonoscopy with polypectomy (~01/23/25) H/O tooth extraction History of removal of nevus History of arthroscopy of left knee History of appendectomy Family History Father Colon cancer Mother No problems noted. Brother Prostate cancer Son Colon cancer History of cancer chemotherapy Social History Household Members: Spouse and Family Housing: House Alcohol intake: never Patient Tobacco Use Status: Former Tobacco user Tobacco use type: Cigarette e-Cigarette/Vaping Use: Never Used Second Hand Smoke Exposure: No Advance Directives Date on File: 10/12/21 service: No Current occupational status: retired Current occupational exposures/hazards: No Cognitive needs: Yes (cane) Hearing needs: Yes Vision needs: Yes Review of Systems Const Denies chills, Denies fever(s) and Reports weight loss Card Denies chest pain, Denies dyspnea and Denies dyspnea on exertion Resp Denies cough, Denies dyspnea and Denies dyspnea on exertion GI Denies hematochezia and Denies change in bowel habits Denies hematuria and Denies difficulty urinating Musc Denies back pain and Denies limited range of motion Neuro Denies focal weakness and Denies convulsions Psych Denies depression and Denies mood swings Physical Exam Vital Signs: BMI result Body Mass Index 24.9 Const General: comfortable and no acute distress Resp Effort & Inspection: normal respiratory effort Cardio Rate: regular rate GI Palpation (GI): Soft to palpation, not firm, nontender and no guarding Assessment & Plan Assessment & Plan (1) Abnormal abdominal CT scan: Code(s): R93.5 - Abnormal findings on diagnostic imaging of other abdominal regions, including retroperitoneum Category: Medical Plan: I have reviewed his CAT scan and this shows severe atrophy of the neck body and tail of the pancreas along with ductal dilatation and this has suspicious for an occult malignancy . Otherwise the CAT scan does not suggest any other intra-abd ominal pathology . There is no suggestion of any mass in the colon. I am going to order for an MRI of the abdomen and therefore. I explained to the patient and his the above. I will see him again after MRI.. Orders: Orders MR abdomen wo/w con Today R93.5 - Abnormal findings on diagnostic imaging of other abdominal regions, including retroperitoneum Coding Level of Care Code Est Pt Level 3 (38083) Diagnoses Abnormal abdominal CT scan R93.5
== END 2025-03-19 11:59 | disposition home or self-care (01) ==
LOC: HO.HGS 11:35
PROVIDERS: PCP Internal Medicine; Visit Provider Surgery
DX: R93.5 Abnormal findings on diagnostic imaging of other abdominal regions, including retroperitoneum (principal)
CPT/HCPCS: 99213

== ENCOUNTER → 2025-03-19 11:34 | Outpatient (BNVA) | payer MEDICARE, SELFPAY | PROVIDERS: PCP Internal Medicine; Visit Provider Surgery | DX: R93.5 Abnormal findings on diagnostic imaging of other abdominal regions, including retroperitoneum (principal); Z87.891 Personal history of nicotine dependence | CPT/HCPCS: 99212 ==

== ENCOUNTER 2025-04-07 13:36 | Outpatient (AMB) | payer MEDICARE, SELFPAY ==
--- NOTE | 2025-04-07 13:40 | MHC.PC.OV ---
Vital Signs 04/07/25 13:41 Height 5 ft 7 in Weight 164 lb BMI 25.7 BP 122/60 Blood Pressure Location Lt brachial Position Sitting Respiration 18 Pulse 67 Pulse Source Pulse Oximeter Temp Source Temporal Artery Scan Pulse Oximetry (%) 95 Oxygen Delivery Method Room Air Intake Visit Reasons: positive cologuard test, CLBP - see comments Superintendent Logging Required: No Accompanied by: Self / Same As Patient Allergies No Known Allergies Allergy (Verified 04/07/25 13:47) Medication List - Last Reconciled 04/07/25 by Estella Gross MD aspirin 81 mg PO DAILY atenolol-chlorthalidone 100-25 mg 1 tab PO DAILY buprenorphine HCl 300 mcg buccal Q12H [glucose armor ] lisinopril 5 mg PO DAILY 90 days omeprazole 40 mg PO DAILY rosuvastatin (Crestor) 20 mg PO DAILY 90 days Tobacco use date assessed: 04/07/25 Fall risk assessment: No Falls in past year Last assessed Fall Risk: 04/07/25 Dental Screening Dental Screen Date: 04/07/25 Did you have a dental visit in the last 12 months?: No Did you have a dental problem in the last 6 months where you did not have access to dental care?: No Was dental information given to patient?: No HPI positive cologuard test, CLBP - see comments HPI Details March 2025here is severe atrophy of the neck, body, and tail of the pancreas with moderate to severe pancreatic ductal dilation concerning for an occult malignancy. Follow-up MRI abdomen to evaluate the pancreas without and with IV contrast. Sigmoid diverticulosis without sign of acute infection. There is a large sliding hiatal hernia involves a large portion of the stomach body and fundus. There is a posterior left Bochdalek hernia containing adipose tissue. HPI Comments History of Present Illness Details History of Present Illness The patient is an 84-year-old individual presenting for a follow-up visit for management of multiple chronic conditions and evaluation of new problems. The patient carries diagnoses of hypercholesterolemia, lumbar spondylosis, hypertension, chronic kidney disease, generalized anxiety disorder, coronary artery disease, and type [address] scan on March 13 revealed severe atrophy of the neck, body, and tail of the pancreas, along with ductal dilatation. These findings are a primary concern, especially in the context of significant weight loss. The patient reports new severe back pain, described as a pinched nerve, at the thoracolumbar junction. The pain is localized, does not radiate to the legs, is exacerbated by standing or activity, and is relieved by lying down. The previous CT scan also noted severe scoliosis with a rotational component in this area of the spine. Regarding gastrointestinal history, a prior colonoscopy performed after a positive Cologuard test resulted in the removal of multiple polyps, which were identified as tubular adenomas with high-grade dysplasia. A repeat colonoscopy was recommended in one year, and the most recent one was negative. The patient also has a history of sigmoid diverticulosis and a large hiatal hernia. The patient's type 2 diabetes is diet-controlled, with a hemoglobin A1c of 6.7% in December. The patient also takes rosuvastatin 20 mg daily for hypercholesterolemia, lisinopril 5 mg daily for hypertension, and aspirin 81 mg daily for coronary artery disease. The last comprehensive blood work was performed in August. [facility] Maintenance An order for fasting comprehensive labs, including a CBC, CMP, lipid panel, and urinalysis, has been placed. The patient plans to complete this lab work tomorrow. 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 - Functional Status: Activity is limited by severe back pain, which occurs after standing for a short time or walking, requiring the patient to lie down for relief. - Exercise: Performs exercises on the floor to alleviate back pain. - Substance Use: Takes an oztf-ghe-smclexm herbal supplement (Glucose Armor) for diabetes. - Family: The patient mentioned having children, two of whom have back problems and one son who struggled with substance use and is on methadone. Results - Labs: - Bcrqt-oo-fese Hemoglobin A1c: 6.5%. - Hemoglobin A1c (December): 6.7%. - Blood Count (September 02): Normal. - Imaging: - CT Scan (March 13): Showed severe atrophy of the pancreatic body, neck, and tail with ductal dilatation; sigmoid diverticulosis; large hiatal hernia; and severe scoliosis with a rotational component at the thoracolumbar junction. - Procedures: - Colonoscopy (recent): Negative results. - Colonoscopy (past): Showed multiple tubular adenomas with high-grade dysplasia. [facility] Medical History Abnormal abdominal CT scan Positive colorectal cancer screening using Cologuard test Positive colorectal cancer screening using Cologuard test Impaired glucose tolerance Palpitations Non-ST elevation [place] (NSTEMI) Colonoscopy refused Colon cancer screening Scoliosis SOBOE (shortness of breath on exertion) CKD (chronic kidney disease) stage 3, GFR 30-59 ml/min Hypertension GERD (gastroesophageal reflux disease) Lumbar spondylosis Hyperlipidemia Overweight (BMI 25.0-29.9) Surgical History History of colonoscopy with polypectomy (~01/23/25) H/O tooth extraction History of removal of nevus History of arthroscopy of left knee History of appendectomy Family History Father Colon cancer Mother No problems noted. Brother Prostate cancer Son Colon cancer History of cancer chemotherapy Social History Household Members: Spouse and Family Housing: House Alcohol intake: never Patient Tobacco Use Status: Former Tobacco user Tobacco use type: Cigarette e-Cigarette/Vaping Use: Never Used Second Hand Smoke Exposure: No Advance Directives Date on File: 10/12/21 service: No Current occupational status: retired Current occupational exposures/hazards: No Cognitive needs: Yes (cane) Hearing needs: Yes Vision needs: Yes Questionnaire Thrive Questionnaire Date Thrive assessed: 10/24/24 ZARA-7 AMB Questionnaire ZARA-7 Date ZARA - 7 assessed: 10/24/24 Source: Developed by Drs. Veto Cm, Fransisca Parra, Fabrice Gómez and colleagues, with an educational juan m from [employer]. Review of Systems Narrative Review of Systems - Constitutional: Reports significant weight loss. - Musculoskeletal: Reports severe, localized, non-radiating pain in the thoracolumbar area, which is worse with standing and activity and relieved by rest. - Neurological: Describes the back pain as a pinched nerve. - Genitourinary: Denies problems with urination but notes that taking too much Belbuca can cause urinary retention. Physical exam (Primary Care) Vital Signs: Last Vital Signs Resp 18 04/07/25 13:41 Oxygen Delivery Method Room Air 04/07/25 13:41 Tobacco/Smoking Status: Tobacco use Status Tobacco use date assessed 04/07/25 04/07/25 13:44 Patient Tobacco Use Status Former Tobacco user 04/07/25 13:44 Tobacco use type Cigarette 04/07/25 13:44 e-Cigarette/Vaping Use Never Used 04/07/25 13:44 Thrive Assessment: Date of Thrive Assessment Date Thrive assessed 10/24/24 04/07/25 13:44 Narrative Physical Exam Const General: alert; No acute distress Eyes Conjunctivae: conjunctivae normal Resp Auscultation: clear to auscultation bilaterally Cardio Rate: regular rate Rhythm: regular rhythm GI Inspection: Yes normal to inspection Extrem General: Yes normal to inspection and No edema Coding Level of Care Code Complex visit Add On G2211 Diagnoses Coronary artery disease I25.10 Essential hypertension I10 Hypertension type: essential hypertension Mixed hyperlipidemia E78.2 Hyperlipidemia type: mixed hyperlipidemia Type 2 diabetes mellitus with hyperglycemia E11.65 Lumbar spondylosis M47.816 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 Decrease salt intake and exercise lisinopril 5 mg once a day (3) Hyperlipidemia: Code(s): E78.5 - Hyperlipidemia, unspecified Category: Medical Qualifiers: Hyperlipidemia type: mixed hyperlipidemia Qualified Code(s): E78.2 - Mixed hyperlipidemia Plan: Avoid fried foods, chicken skin, eggs, butter margarine, pastries and meat. Be it pork or beef they have a lot of cholesterol LDL goal of less than 70 and triglyceride of less than 150 patient is on rosuvastatin 20 mg once a day August 2024 last blood work (4) Type 2 diabetes mellitus with hyperglycemia: Code(s): E11.65 - Type 2 diabetes mellitus with hyperglycemia Category: Medical Plan: Decrease the amount of carbohydrate intake, pasta, bread, rice and potatoes are all sugar and that is aside from all the sweet stuff, remember that fruits are good but they are Sweet also. Hemoglobin A1c goal of less than 7.0 diet controlled (5) Lumbar spondylosis: Comment: [facility] pain 2009 Code(s): M47.816 - Spondylosis without myelopathy or radiculopathy, lumbar region Category: Medical Plan: Narcotic pain meds: Is being prescribed with the understanding that these medications are potentially addictive and should be used only when absolutely necessary and must always be secured. Any remaining pills should be safely disposed off appropriately. Patient is advised that narcotics can impaired judgment and one should not drive or operate heavy machinery while taking these medications. Never share these medications with anybody and do not leave them unattended. They will not be replaced under any circumstances. (6) Pancreatic duct dilated: Comment: March 2025here is severe atrophy of the neck, body, and tail of the pancreas with moderate to severe pancreatic ductal dilation concerning for an occult malignancy. Follow-up MRI abdomen to evaluate the pancreas without and with IV contrast. Sigmoid diverticulosis without sign of acute infection. There is a large sliding hiatal hernia involves a large portion of the stomach body and fundus. There is a posterior left Bochdalek hernia containing adipose tissue. Code(s): K86.89 - Other specified diseases of pancreas Category: Medical Plan: Patient has seen the surgeon and planned MRI (7) Thoracic back pain: Code(s): M54.6 - Pain in thoracic spine Category: Medical Plan Plan Patient was informed and verbally consented to the use of an ambient scribe for clinic note documentation during this visit. 1. Pancreatic Atrophy The CT finding of severe pancreatic atrophy with ductal dilatation is a significant concern, particularly with the patient's reported weight loss. The patient is scheduled for an MRI of the pancreas with and without contrast on to further evaluate these findings. Follow-up is scheduled with Dr. Blackman next week to review the MRI results. 2. Back Pain The patient reports severe, activity-limiting thoracolumbar back pain, likely related to known severe scoliosis with rotational changes seen on a prior CT scan. An order for a lumbar spine X-ray has been placed, but the patient has agreed to wait until after the pancreatic MRI is completed. An additional diagnosis for back pain was added to the MRI request, though it was noted insurance may not approve it. Counseled the patient that back braces provide comfort but not structural support and strongly advised to avoid heavy lifting. 3. Type 2 Diabetes Mellitus The patient's diabetes is well-controlled, with a [id number] HbA1c of 6.5%, meeting the goal of less than 7.0%. The patient will continue with diet control, and no changes to the management plan are needed at this time. 4. Hypercholesterolemia The patient will continue rosuvastatin 20 mg daily with an LDL goal of less than 100 mg/dL. A lipid panel has been ordered as part of the comprehensive blood work. 5. Hypertension The patient will continue the current regimen of lisinopril 5 mg once a day. 6. Coronary Artery Disease The patient will continue taking aspirin 81 mg once a day for secondary prevention. 7. Chronic Pain A prescription for Belbuca has been renewed to manage the patient's chronic back pain. Discussion Notes I discussed the concerning findings of pancreatic atrophy and ductal dilatation on the recent CT scan and emphasized the importance of the upcoming MRI to investigate further, especially given the context of weight loss. We reviewed the patient's new, severe back pain, and I explained that it is likely related to the severe scoliosis seen on imaging. Although an X-ray request was placed, we agreed to wait for the MRI results before proceeding, and I noted that I added the back pain diagnosis to the MRI request but cautioned that insurance might not cover it as a secondary indication. I strongly counseled the patient to avoid lifting heavy objects to prevent further injury to the spine, explaining that the back brace is for comfort only and does not provide structural support. We reviewed the excellent [id number]-ucao A1c result of 6.5%. I ordered comprehensive fasting blood work and a urinalysis, which the patient will complete tomorrow. I also renewed the prescription for Belbuca as requested. We will follow up on the lab work and MRI results. Patient Instructions - Please go for your scheduled MRI of the pancreas this . - This is very important to evaluate the findings from your recent CT scan. - You have an appointment with Dr. Blackman next week to review the MRI results. - Please go to the lab tomorrow for fasting blood work. - An order has been placed for a full blood panel and a urine test. - It is very important that you avoid lifting heavy items to protect your spine. - Your back brace may make you feel more comfortable, but it does not provide real support for your back. - Continue all your current medications for blood pressure, cholesterol, and heart health as prescribed. - Your prescription for Belbuca has been renewed and sent to the pharmacy. - We will wait to do an X-ray of your back until after your MRI is completed and reviewed. Orders: Orders Ferritin Today E11.65 - Type 2 diabetes mellitus with hyperglycemia Lipid Panel Today E11.65 - Type 2 diabetes mellitus with hyperglycemia, E78.00 - Pure hypercholesterolemia, unspecified Magnesium Today E11.65 - Type 2 diabetes mellitus with hyperglycemia Vitamin B12 and Folate Today E11.65 - Type 2 diabetes mellitus with hyperglycemia Creatinine Urine Today E11.65 - Type 2 diabetes mellitus with hyperglycemia AMB Hemoglobin A1c Today Z13.9 - Encounter for screening, unspecified XR thoracic spine 2V Today M54.6 - Pain in thoracic spine XR lumbar spine 2-3V Today M47.816 - Spondylosis without myelopathy or radiculopathy, lumbar region MR abdomen wo/w con 03/19/25 M54.6 - Pain in thoracic spine, R93.5 - Abnormal findings on diagnostic imaging of other abdominal regions, including retroperitoneum Microalbumin, Random (w Creat) Today E11.65 - Type 2 diabetes mellitus with hyperglycemia Reticulocyte Count Today E11.65 - Type 2 diabetes mellitus with hyperglycemia IRON PROFILE Today E11.65 - Type 2 diabetes mellitus with hyperglycemia Medications: Refilled buprenorphine HCl 300 mcg buccal Q12H 60 ea 0RF M47.816 - Spondylosis without myelopathy or radiculopathy, lumbar region
[2025-04-07 13:41] VITALS: BP 122/60; PULSE 67; RESP 18; O2SAT 95; BMI 25.7
== END 2025-04-07 14:28 | disposition home or self-care (01) ==
LOC: HO.HMCH 13:37
PROVIDERS: PCP Internal Medicine; Visit Provider Internal Medicine
DX: I25.10 Atherosclerotic heart disease of native coronary artery without angina pectoris (principal); E11.65 Type 2 diabetes mellitus with hyperglycemia; I10 Essential (primary) hypertension; E78.2 Mixed hyperlipidemia; M47.816 Spondylosis without myelopathy or radiculopathy, lumbar region; K86.89 Other specified diseases of pancreas; M54.6 Pain in thoracic spine

== ENCOUNTER → 2025-04-07 13:36 | Outpatient (BNVA) | payer MEDICARE, SELFPAY | PROVIDERS: PCP Internal Medicine; Visit Provider Internal Medicine | DX: I25.10 Atherosclerotic heart disease of native coronary artery without angina pectoris (principal); I10 Essential (primary) hypertension; E11.65 Type 2 diabetes mellitus with hyperglycemia; E78.2 Mixed hyperlipidemia; M47.816 Spondylosis without myelopathy or radiculopathy, lumbar region; K86.89 Other specified diseases of pancreas; M54.6 Pain in thoracic spine | CPT/HCPCS: 83036; 99212 ==

== ENCOUNTER 2025-04-08 12:58 | Outpatient (REF) | payer MEDICARE, SELFPAY ==
[2025-04-08 13:12] LABS: MANUAL DIFF FLAG NO
[2025-04-08 13:35] LABS: Hematocrit 45.6 % (42.0-52.0); Hemoglobin 15.4 g/dl (14.0-18.0); Imm Gran Abs Auto 0.03 X10*3/uL (0.00-0.03); Imm Gran Pct Auto 0.4 % (0.0-0.4); Lymphocytes Absolute Auto 1.5 X10*3/uL (1.2-4.9); Mean Corpuscular HGB Conc 33.8 g/dl (31.0-36.0); Mean Corpuscular Hemoglobin 30.4 pg (27.0-33.0); Mean Corpuscular Volume 89.9 fL (80.0-98.0); NRBC Abs Auto 0.000 X10*3/uL (0.0-0.012); NRBC Pct Auto 0.0 /100WBC (0.0-0.2); Platelet Count 197 X10*3/uL (160-400); Red Blood Count 5.07 X10*6/uL (4.60-5.80); Reticulocytes Absolute 0.049 X10*6/uL (0.026-0.095); White Blood Count 8.3 X10*3/uL (4.8-10.8)
[2025-04-08 14:53] LABS: Alanine Aminotransferase 31 U/L (0-40); Albumin Level 4.7 g/dL (3.5-5.0); Alkaline Phosphatase 82 U/L (39-117); Anion Gap 14 (12-20); Aspartate Amino Transferase 34 U/L (5-37); Blood Urea Nitrogen 21 mg/dL (9-16); Calcium 9.8 mg/dL (8.4-10.2); Carbon Dioxide 29 mmol/L (22-29); Chloride 100 mmol/L (96-108); Cholesterol 109 mg/dL (<200); Estimated Glomerular Filt Rate > 60; Ferritin 111 ng/mL (20-250); Free T4 (Free Thyroxine) 1.04 ng/dL (0.71-1.85); HDL Cholesterol 51 mg/dL (>40); Iron 130 mcg/dL (45-160); Magnesium 1.7 mg/dL (1.6-2.6); Percent Iron Saturation 45 % (15-50); Potassium 4.3 mmol/L (3.3-5.1); Sodium 139 mmol/L (135-145); Thyroid Stimulating Hormone 1.20 uIU/mL (0.32-4.0); Total Iron Binding Capacity 288 mcg/dL (228-428); Total Protein 7.1 g/dL (6.5-8.0); Triglycerides 93 mg/dL (<150); Unsaturated Iron Binding 158 ug/dL
[2025-04-08 15:21] LABS: Folate 12.2 ng/mL (> or = 4.0); Vitamin B12 469 pg/mL (200-900)
[2025-04-09 14:06] LABS: Appearance Urine Clear; Glucose Urine UA Negative (Negative); PH 6.0 (5.0-9.0); Specific Gravity - Urine 1.020 (1.005-1.025)
[2025-04-09 14:32] LABS: Microalbum/Creatinine Ratio Ur 22.0 ug/mg cr (<30)
== END 2025-04-08 12:59 | disposition home or self-care (01) ==
LOC: HO.LAB 12:58
PROVIDERS: PCP Internal Medicine; Visit Provider Internal Medicine
DX: E11.65 Type 2 diabetes mellitus with hyperglycemia (principal); E78.00 Pure hypercholesterolemia, unspecified; R30.0 Dysuria
CPT/HCPCS: 36415; 80053; 80061; 81003; 82043; 82570; 82607; 82728; 82746; 83540; 83735; 84439; 84443; 85025; 85045

== ENCOUNTER → 2025-04-09 12:58 | Outpatient (BNV) | payer MEDICARE, SELFPAY | PROVIDERS: PCP Internal Medicine; Visit Provider Radiology Diagnostic Radiology | DX: N28.1 Cyst of kidney, acquired (principal); K76.89 Other specified diseases of liver | CPT/HCPCS: 74183 ==

== ENCOUNTER 2025-04-09 13:25 | Outpatient (REF) | payer MEDICARE, SELFPAY ==
--- NOTE | ~2025-04-09 | MR_ITS ---
EXAMINATION: MR ABDOMEN WITHOUT AND WITH CONTRAST CLINICAL INFORMATION: R 93.5 COMPARISON: Correlated to CT dated March 13, 2025 reported abnormal pancreas. TECHNIQUE: MR abdomen was performed without and with use of 7.0 mL intravenous [(Gadavist) gadolinium contrast. Postcontrast images are performed in multiphase dynamic sequences. Imaging was performed in 3 planes. MRCP protocol pain. No reported immediate complications FINDINGS: Patient's breathing motion artifact. LUNG BASES: No enhancing mass. LIVER, GALLBLADDER, AND BILIARY TREE: There are measures 13 cm. Multiple, well-defined, lobulated, nonenhancing fluid signal characteristic lesions, the largest measures 15 mm, dome of the left hepatic lobe. Flow-void signal within the main portal veins and hepatic veins and intrahepatic portion of the IVC is normal. Gallbladder is fluid-filled without distention. No intraluminal signal abnormality. No pericholecystic fluid collection or gallbladder wall thickening. Common bile duct measures 5 mm PANCREAS: No gross pancreatic parenchyma. Saccular dilatation of the main pancreatic duct measuring 14 mm in maximum diameter. There are few scattered saccular fluid-filled no signal abnormalities adjacent to the body tail of the pancreas. No peripancreatic fluid collection. No abnormal enhancement. SPLEEN: 8 cm. No solid or cystic lesion. ADRENAL GLANDS: No nodular lesions. KIDNEYS AND URETERS: Multifocal exophytic and cortical medullary junction different sized nonenhancing fluid signal characteristic lesions both kidneys, the largest in the left kidney. No gross septations or nodular components. No hydronephrosis. No enhancing lesion in the renal parenchyma. GASTROINTESTINAL TRACT: Hiatal hernia, large volume. Abundant stool. No intestinal obstruction pattern. No ascites. ABDOMINAL WALL: No gross umbilical hernia There is a posterior diaphragmatic defect in the left side resulting in herniation of the retroperitoneal fat into the left lower hemithorax. LYMPH NODES: No gross mesenteric or retroperitoneal lymphadenopathy. VASCULAR: No aneurysm, abdominal aorta. OSSEOUS STRUCTURES: Levoconvex rotoscoliosis apex at the thoracolumbar junction. Multilevel thoracolumbar spondylosis. 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 Electronically signed by: Esvin Vance MD 04/09/2025 02:43 PM EST
== END 2025-04-09 13:26 | disposition home or self-care (01) ==
LOC: HO.MRI 13:25
PROVIDERS: PCP Internal Medicine; Visit Provider Surgery
DX: R93.5 Abnormal findings on diagnostic imaging of other abdominal regions, including retroperitoneum (principal); M54.6 Pain in thoracic spine
CPT/HCPCS: 74183; A9585

== ENCOUNTER 2025-04-16 11:25 | Outpatient (AMB) | payer MEDICARE, SELFPAY ==
--- NOTE | 2025-04-16 11:27 | A.OFFVIS_ITS ---
Vital Signs 04/16/25 11:35 Height 5 ft 7 in Weight 163 lb 2.273 oz BMI 25.5 Intake Visit Reasons: follow up MRI Intake Note: Patient presents for MRI follow-up. Pt c/o; no new complaints. Lap Polisher Required: No Accompanied by: Spouse Allergies No Known Allergies Allergy (Verified 04/16/25 11:36) Medication List - Last Reconciled 04/16/25 by Jameson Blackman MD aspirin 81 mg PO DAILY atenolol-chlorthalidone 100-25 mg 1 tab PO DAILY buprenorphine HCl 300 mcg buccal Q12H [glucose armor ] lisinopril 5 mg PO DAILY 90 days omeprazole 40 mg PO DAILY rosuvastatin (Crestor) 20 mg PO DAILY 90 days HPI HPI follow up MRI: Details: He had undergone an MRI because of CAT scan findings showing atrophy of the pancreas along with ductal dilatation. He is here to discuss the findings He has a history of weight loss without any significant abdominal pain. He tested positive for Cologuard but his colonoscopy did not reveal any lesions. [facility] Medical History Abnormal abdominal CT scan Positive colorectal cancer screening using Cologuard test Positive colorectal cancer screening using Cologuard test Impaired glucose tolerance Palpitations Non-ST elevation [place] (NSTEMI) Colonoscopy refused Colon cancer screening Scoliosis SOBOE (shortness of breath on exertion) CKD (chronic kidney disease) stage 3, GFR 30-59 ml/min Hypertension GERD (gastroesophageal reflux disease) Lumbar spondylosis Hyperlipidemia Overweight (BMI 25.0-29.9) Surgical History History of colonoscopy with polypectomy (~01/23/25) H/O tooth extraction History of removal of nevus History of arthroscopy of left knee History of appendectomy Family History Father Colon cancer Mother No problems noted. Brother Prostate cancer Son Colon cancer History of cancer chemotherapy Social History Household Members: Spouse and Family Housing: House Alcohol intake: never Patient Tobacco Use Status: Former Tobacco user Tobacco use type: Cigarette e-Cigarette/Vaping Use: Never Used Second Hand Smoke Exposure: No Advance Directives Date on File: 10/12/21 service: No Current occupational status: retired Current occupational exposures/hazards: No Cognitive needs: Yes (cane) Hearing needs: Yes Vision needs: Yes Review of Systems Const Denies chills, Denies fever(s), Reports lethargy and Reports poor appetite Card Denies chest pain at rest Resp Denies cough GI Denies abdominal pain Denies difficulty urinating Physical Exam Vital Signs: BMI result Body Mass Index 25.5 Const General: comfortable and no acute distress Eyes Other: Anicteric Resp Effort & Inspection: normal respiratory effort GI Palpation (GI): Soft to palpation, not firm, nontender and no guarding Assessment & Plan Assessment & Plan (1) Abnormal abdominal CT scan: Code(s): R93.5 - Abnormal findings on diagnostic imaging of other abdominal regions, including retroperitoneum Category: Medical Plan: I had sent him for an MRI via in view of CAT scan findings showing an abnormal looking pancreas with ductal dilatation and atrophy of the head and neck. Review of his MRI shows that there is a saccular dilatation of the main pancreatic duct up to 14 mm in diameter. There are a few scattered 2nd her fluid-filled abnormalities adjacent to the body and tail of the pancreas. 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 I am going to therefore sent him to a specialist in [facility]. I told him that I am going to set him up for a consultation for this. He understands the plan. He is comfortable with this. His was with him during the visit. Coding Level of Care Code Est Pt Level 3 (99109) Diagnoses Abnormal abdominal CT scan R93.5
[2025-04-16 11:35] VITALS: BMI 25.5
== END 2025-04-16 12:01 | disposition home or self-care (01) ==
LOC: HO.HGS 11:25
PROVIDERS: PCP Internal Medicine; Visit Provider Surgery
DX: R93.5 Abnormal findings on diagnostic imaging of other abdominal regions, including retroperitoneum (principal)
CPT/HCPCS: 99213

== ENCOUNTER → 2025-04-16 11:25 | Outpatient (BNVA) | payer MEDICARE, SELFPAY | PROVIDERS: PCP Internal Medicine; Visit Provider Surgery | DX: Z71.2 Person consulting for explanation of examination or test findings (principal); R93.5 Abnormal findings on diagnostic imaging of other abdominal regions, including retroperitoneum | CPT/HCPCS: 99212 ==